=== PATIENT | female | born 1990 | race Caucasian/White ===

== ENCOUNTER 2023-12-05 11:00 | Outpatient (REF) | payer MEDICAID, SELFPAY ==
[2023-12-05 16:32] LABS: CT PCR NOT DETECTED (Not Detect.); NG PCR NOT DETECTED (Not Detect.)
[2023-12-06 08:08] LABS: Syphilis Screen Nonreactive (Nonreactive)
[2023-12-06 08:29] LABS: HBsAGNum1 0.47 S/CO (0.00-0.99); HIV AB/AG Nonreactive (Nonreactive); HIV Num 1 0.06 S/CO (0.00-0.99); Hepatitis B Surface Antigen Negative (Negative); ~HepC Num1 0.12 S/CO (0.00-0.79); ~Hepatitis C Antibody Nonreactive (Nonreactive)
[2023-12-06 11:21] LABS: BV Int Neg Control Negative (Negative); BV Int Pos Control Positive (Positive)
== END 2023-12-05 11:01 | disposition home or self-care (01) ==
LOC: HO.LAB 11:00
PROVIDERS: Visit Provider Obstetrics & Gynecology
DX: Z01.419 Encounter for gynecological examination (general) (routine) without abnormal findings (principal); Z20.2 Contact with and (suspected) exposure to infections with a predominantly sexual mode of transmission
CPT/HCPCS: 0353U; 86780; 86803; 87340; 87389; 87480; 87510; 87624; 87660; 88142; 99385

== ENCOUNTER 2023-12-05 11:00 | Outpatient (AMB) | payer MEDICAID, SELFPAY ==
--- NOTE | 2023-12-05 11:02 | A.OFFVIS_ITS ---
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 No complaints. Last Pap/HPV was many years ago [facility] Medical History Bipolar disorder Insomnia Anxiety Depression Surgical History Status post cervical polyp removal Family History Mother HTN (hypertension) Father Diabetes Maternal Grandmother Uterus cancer Maternal Aunt Uterus cancer Social History Household Members: Children Housing: House Alcohol intake: never Patient Tobacco Use Status: Never used Tobacco Current occupational status: student Sexually active: Yes Sexual orientation: Straight/Heterosexual Gender identity: Female Female Reproductive History Menstrual Age of Menarche: 10 Duration of menses: 3-5 days Date of last menstrual period: 11/10/23 control method: none Total pregnancies: 3 Full term: 2 Number of Living Children: 2 Ab spontaneous: 1 Review of Systems Const All systems reviewed & are unremarkable except as noted in HPI and below Card Reports as per HPI Resp Reports as per HPI GI Reports as per HPI and Reports no additional complaints Reports as per HPI Physical Exam Vital Signs: Last Vital Signs BP 118/72 12/05/23 11:04 BMI result Body Mass Index 30.7 Const General: cooperative, healthy appearing and comfortable Chest Chest palpation & inspection: normal inspection of the chest and normal palpation of entire chest wall Breast/axilla inspection: normal inspection of the breasts and normal inspection of the axillae Breast/axilla palpation: normal palpation of the breasts, normal palpation of the axillae and no axillary lymphadenopathy Resp Effort & Inspection: normal respiratory effort Auscultation: clear to auscultation bilaterally Percussion: percussion normal Cardio Palpation: normal PMI Rate: regular rate Rhythm: regular rhythm Heart sounds: no murmurs and no rubs Peripheral pulses: Peripheral pulses 2+ throughout GI Inspection: Yes normal to inspection Palpation (GI): Soft to palpation, nontender, no guarding, not rigid and No hepatosplenomegaly present Percussion: Yes normal to percussion Auscultation: normal bowel sounds Rectal Exam - Female: deferred General: Yes bladder normal to palpation External Female Exam: No lesion Speculum Exam - Vagina: normal appearance of the vagina, normal palpation, normal vaginal discharge and not erythematous Speculum Exam - Cervix: normal appearance of the cervix and normal palpation Bimanual exam- vagina & uterus: normal bimanual exam, normal palpation, uterine size normal, bladder normal to palpation, consistency normal and normal palpation Bimanual Exam- Adnexa, other: normal adnexae, no masses and no tenderness Assessment & Plan Assessment & Plan (1) Well woman exam: Code(s): Z01.419 - Encounter for gynecological examination (general) (routine) without abnormal findings Plan: Cotesting done. Counseled the patient about the recommended dietary allowance of 1000 mg of Calcium & 600 IU of vitamin D. The patient was instructed to perform monthly self-breast exams and to schedule an annual exam in a year; All questions answered and the patient verbalized understanding. Instructed the patient to schedule annual exam in a year Coding Level of Care Code New Pt Prev Care 18-39yr(92008 Diagnoses Well woman exam Z01.419
[2023-12-05 11:04] VITALS: BP 118/72; BMI 30.7
== END 2023-12-05 11:27 | disposition home or self-care (01) ==
LOC: HO.HWS 11:00
PROVIDERS: Visit Provider Obstetrics & Gynecology
DX: Z01.419 Encounter for gynecological examination (general) (routine) without abnormal findings (principal)
CPT/HCPCS: 99385

== ENCOUNTER 2023-12-05 12:07 | Outpatient (REF) | payer MEDICAID, SELFPAY ==
[2023-12-09 22:14] LABS: HPV mRNA E6/E7 rflx Not Detected (Not Detected)
== END 2023-12-05 12:08 | disposition home or self-care (01) ==
LOC: HO.LNP 12:07
PROVIDERS: Visit Provider Obstetrics & Gynecology
DX: Z01.419 Encounter for gynecological examination (general) (routine) without abnormal findings (principal); Z20.2 Contact with and (suspected) exposure to infections with a predominantly sexual mode of transmission
CPT/HCPCS: 87624; 88142

== ENCOUNTER 2024-01-04 10:47 | Outpatient (AMB) | payer MEDICAID, SELFPAY ==
[2024-01-04 11:15] VITALS: BMI 30.6
--- NOTE | 2024-01-04 11:15 | MHC.OFFVIS ---
Vital Signs 01/04/24 11:15 Height 5 ft 2 in Weight 167 lb 8.821 oz BMI 30.6 Intake Visit Reasons: ? BV Scale Expert Required: No Information Interpreted: non-clinical & clinical District Loss Prevention Manager: District Loss Prevention Manager Present (Giana HARDY) Accompanied by: Self / Same As Patient Allergies acetaminophen [From Tylenol] Allergy (Severe, Verified 01/04/24 11:18) Anaphylaxis Is last menstrual period known: Yes HPI Comments Details: The patient is complaining of vaginal discharge, clear to whitish, associated with burning and itching but no foul odor. It started few days ago ago. The patient has no other associated symptoms. PFS Medical History Bipolar disorder Insomnia Anxiety Depression Surgical History Status post cervical polyp removal Family History Mother HTN (hypertension) Father Diabetes Maternal Grandmother Uterus cancer Maternal Aunt Uterus cancer Social History Household Members: Children Housing: House Alcohol intake: never Patient Tobacco Use Status: Never used Tobacco Current occupational status: student Sexual orientation: Straight/Heterosexual Gender identity: Female Female Reproductive History Menstrual Age of Menarche: 10 Review of Systems Const All systems reviewed & are unremarkable except as noted in HPI and below Physical Exam Vital Signs: BMI result Body Mass Index 30.6 General: Yes no CVA tenderness External Female Exam: normal external appearance and normal appearance of the urethra Speculum Exam - Vagina: normal appearance of the vagina, normal palpation, no lesions and no masses Speculum Exam - Cervix: normal appearance of the cervix, normal palpation, no lesions, no masses and nontender Bimanual exam- vagina & uterus: normal bimanual exam, normal palpation, uterine size normal, normal palpation, uterine shape normal, No Cervical tenderness present and non-tender Bimanual Exam- Adnexa, other: normal adnexae Back/Spine/Pelvis Back: no CVA tenderness Assessment & Plan Assessment & Plan (1) Candidal vulvovaginitis: Code(s): B37.31 - Acute candidiasis of vulva and vagina Category: Medical Plan: GC/CT, Bacterial Vaginosis panel taken, Terazol 0.8% q.h.s. for 3 days with Lotrisone cream apply to the affected area b.i.d. for 5 days were sent to the patient's pharmacy. The patient was instructed to call if symptoms don't improve in 48 hours. Medications: New terconazole 0.8% 1 appful vaginal BEDTIME 3 days 20 grams 0RF clotrimazole-betamethasone 1-0.05 % 1 appl topical BID 5 days 45 grams 0RF Coding Level of Care Code Est Pt Level 3 (64980) Diagnoses Candidal vulvovaginitis B37.31
== END 2024-01-04 11:42 | disposition home or self-care (01) ==
LOC: HO.HWS 10:47
PROVIDERS: Visit Provider Obstetrics & Gynecology
DX: B37.31 Acute candidiasis of vulva and vagina (principal)
CPT/HCPCS: 99213

== ENCOUNTER 2024-01-04 10:47 | Outpatient (REF) | payer MEDICAID, SELFPAY ==
[2024-01-04 16:38] LABS: CT PCR NOT DETECTED (Not Detect.); NG PCR NOT DETECTED (Not Detect.)
[2024-01-05 13:15] LABS: BV Int Neg Control Negative (Negative); BV Int Pos Control Positive (Positive)
== END 2024-01-04 10:48 | disposition home or self-care (01) ==
LOC: HO.LNP 10:47
PROVIDERS: Visit Provider Obstetrics & Gynecology
DX: B37.31 Acute candidiasis of vulva and vagina (principal)
CPT/HCPCS: 0353U; 87480; 87510; 87660; 99212

== ENCOUNTER 2024-01-06 10:24 | Outpatient (REF) | payer MEDICAID, SELFPAY ==
[2024-01-07 03:17] LABS: Syphilis Screen Nonreactive (Nonreactive)
[2024-01-07 04:01] LABS: HBsAGNum1 0.28 S/CO (0.00-0.99); HIV AB/AG Nonreactive (Nonreactive); HIV Num 1 0.05 S/CO (0.00-0.99); Hepatitis B Surface Antigen Negative (Negative); ~HepC Num1 0.11 S/CO (0.00-0.79); ~Hepatitis C Antibody Nonreactive (Nonreactive)
== END 2024-01-06 10:25 | disposition home or self-care (01) ==
LOC: HO.LAB 10:24
PROVIDERS: Visit Provider Obstetrics & Gynecology
DX: Z20.2 Contact with and (suspected) exposure to infections with a predominantly sexual mode of transmission (principal)
CPT/HCPCS: 36415; 86780; 86803; 87340; 87389

== ENCOUNTER 2024-12-06 09:34 | Outpatient (AMB) | payer OTHER, SELFPAY ==
--- NOTE | 2024-12-06 09:36 | A.OFFPC_ITS ---
Vital Signs 12/06/24 09:37 Height 5 ft 2 in Weight 183 lb 12.8 oz BMI 33.6 BP 112/68 Blood Pressure Location Lt brachial Position Sitting Respiration 20 Pulse 99 Pulse Source Pulse Oximeter Temp 98.6 F Temp Source Oral Pulse Oximetry (%) 98 Oxygen Delivery Method Room Air Intake Visit Reasons: establish care Intake Note: Patient is a new patient here to establish care. Transferring care from [facility] in [place], [place]. Medical records have not been requested and have not been received. Pasting Inspector Required: Yes Pasting Inspector Language: Marketing Content Coordinator Name: Used tablet- Vin [id number] Patient : Yes (JOHN: 05/12/2025) Allergies acetaminophen [From Tylenol] Allergy (Severe, Verified 12/06/24 09:57) Anaphylaxis Medication List - Last Reconciled 12/06/24 by ADRIENNE Strong blood sugar diagnostic (FreeStyle Lite Strips) As directed blood-glucose meter (FreeStyle [place] Lite kit) As directed cariprazine (Vraylar) mg PO DAILY cholecalciferol (vitamin D3) 125 mcg PO DAILY lamotrigine mg PO DAILY lancets (TRUEplus Lancets) As directed PNV,calcium 40-hxeu-ouqfo acid 27 mg iron- 1 mg ( Vitamins Plus Low Iron) tabs PO DAILY promethazine mg PO BID Tobacco use date assessed: 12/06/24 Dental Screening Dental Screen Date: 12/06/24 Did you have a dental visit in the last 12 months?: No Did you have a dental problem in the last 6 months where you did not have access to dental care?: No Was dental information given to patient?: Patient has dentist HPI establish care HPI Details Previous PCP: [facility] Last visit: more than a year Last PE: same Specialist: dining room helper (diet due to gestational diabetes), OBGYN: Yes-Shayy willis-she does not know the last name Past medical history: htn in only, bipolar 2 , severe depression and anxiety, insomnia Medications: Family HX: Problem: The patient is presenting today to establish care. Reports that she has no concerns at this time She is 17 weeks in his due to give in May Patient reports that she has been under care of her OBGYN Patient reports that her OBGYN name is Ciara Lucas but she does not know the name of the facility or the last name of her OBGYN The patient reports bipolar disorder type 2, severe depression and anxiety and difficulty sleeping She reports that she is he is her therapist every 2 weeks and her psychiatrist every 3 weeks Patient denies chest pain, shortness of breath or heart palpitation [facility] Medical History Bipolar disorder Insomnia Anxiety Depression Surgical History Status post cervical polyp removal Family History Mother HTN (hypertension) Father Diabetes Maternal Grandmother Uterus cancer Maternal Aunt Uterus cancer Social History Household Members: Children Housing: House Alcohol intake: never Patient Tobacco Use Status: Never used Tobacco e-Cigarette/Vaping Use: Never Used service: No Current occupational status: student Sexual orientation: Straight/Heterosexual Gender identity: Female Cognitive needs: No Hearing needs: No Vision needs: No Female Reproductive History Menstrual Age of Menarche: 10 Number of Living Children: 2 Questionnaire PHQ-9 Over the last 2 weeks, how often have you been bothered by any of the following problems? 1. Little interest or pleasure in doing things: not at all 2. Feeling down, depressed, or hopeless: not at all 3. Trouble falling or staying asleep, or sleeping too much: not at all 4. Feeling tired or having little energy: not at all 5. Poor appetite or overeating: several days 6. Feeling bad about yourself - or that you are a failure or have let yourself or your family down: not at all 7. Trouble concentrating on things, such as reading the newspaper or watching television: not at all 8. Moving or speaking so slowly that other people could have noticed. Or the opposite - being so fidgety or restless that you have been moving around a lot more than usual: not at all 9. Thoughts that you would be better off or of hurting yourself in some way: not at all Total score: 1 Depression Screening Interpretation: Negative Depression Screening Done: Yes 57391 - PHQ-9 Billing: Yes Source: Developed by Drs. Sagar Lorenzana, Roz Phelan, Justin Loja and colleagues, with an educational willow from [employer]. Thrive Questionnaire Date Thrive assessed: 12/06/24 I am a: Patient What is your living situation today?: I have a steady place to live Within the past 12 months, did the food you bought not last and you didn't have the money to get more?: I choose not to answer this question Within the past 12 months, did you worry whether your food would run out before you got money to buy more?: I choose not to answer this question Do you have trouble paying for medicines?: No Do you have trouble getting transportation to medical appointments?: No Do you have trouble paying your heating and electricity bill?: I choose not to answer this question Do you have trouble taking care of your child, family member or friend?: No Do you have trouble with day-to-day activities such as bathing, preparing meals, shopping, managing finances, etc.?: No Are you currently unemployed and looking for a job?: I choose not to answer this question Are you interested in more education?: No Please select the resources that you would like help with: None Currently or been in a relationship where the following occur: No concerns reported THRIVE Score: 0 AUDIT C Alcohol Use Questionnaire (AUDIT-C) 1. How often do you have a drink containing alcohol?: Never 3. How often do you have six or more drinks on one occasion?: Never Total Score: 0 AKREN-7 AMB Questionnaire KAREN-7 Date KAREN - 7 assessed: 12/06/24 Feeling nervous, anxious, or on edge: 0 = Not at all Not being able to stop or control worryin = Not at all Worrying too much about different things: 1 = Several days Trouble relaxin = Several days Being so restless that it is hard to sit still: 0 = Not at all Becoming easily annoyed or irritable: 1 = Several days Feeling afraid as if something awful might happen: 0 = Not at all Total KAREN-7 score (0-4 normal; 5-9 mild; 10-14 moderate; 15-21 severe): 3 Source: Developed by Roz Gomez. Tapan, Justin Loja and colleagues, with an educational willow from [employer]. KAREN-7 Assessment Billing KAREN-7 Assessment Tool: KAREN-7 Assessment 03530 Review of Systems Const Denies headache(s) Eyes Denies loss of vision ENT Denies vertigo, Denies dizziness, Denies headache(s) and Denies sore throat Card Denies chest pain, Denies leg edema and Denies lightheadedness Resp Denies cough, Denies hemoptysis and Denies wheezing GI Denies abdominal pain, Denies melena, Denies constipation, Denies diarrhea and Denies vomiting Denies urinary frequency, Denies dysuria and Denies urinary urgency Musc Denies arthralgias, Denies joint swelling, Denies numbness and Denies tingling Neuro Denies Abnormal speech present, Denies behavioral changes, Denies vertigo, Denies dizziness, Denies headache(s), Denies loss of vision, Denies memory loss, Denies numbness and Denies tingling Psych Reports anxiety, Denies behavioral changes, Reports depression, Denies memory loss and Denies panic attacks Jacob/Lymph Denies easy bleeding and Denies easy bruising Aller/Immun Denies wheezing Physical exam (Primary Care) Vital Signs: Last Vital Signs Temp 98.6 F 12/06/24 09:37 Pulse 99 12/06/24 09:37 Resp 20 12/06/24 09:37 BP 112/68 12/06/24 09:37 Pulse Ox 98 12/06/24 09:37 Oxygen Delivery Method Room Air 12/06/24 09:37 BMI result Body Mass Index 33.6 Tobacco/Smoking Status: Tobacco use Status Tobacco use date assessed 12/06/24 12/06/24 09:56 Patient Tobacco Use Status Never used Tobacco 12/06/24 09:37 e-Cigarette/Vaping Use Never Used 12/06/24 09:56 PHQ-9: PHQ-9 Score PHQ-9: Total score 1 12/06/24 13:43 Depression Screening Interpretation: Negative Thrive Assessment: Date of Thrive Assessment Date Thrive assessed 12/06/24 12/06/24 09:56 Currently or been in a relationship where the following occur: No concerns reported Const General: healthy appearing, no acute distress, alert and awake Nutritional Appearance: well nourished Orientation/consciousness: oriented to person, oriented to place and oriented to time HENMT Ears: TM's normal bilaterally General nose exam: Normal nasal mucous membranes and turbinates present Eyes Conjunctivae: conjunctivae normal Sclerae: sclerae normal Pupils: Equal, round and reactive pupils present Neck Neck: Yes no lymphadenopathy and Yes no JVD Thyroid: Thyroid normal Carotids: no bruits Resp Effort & Inspection: normal respiratory effort and not tachypneic Auscultation: no crackles, no rales, no rhonchi and no wheezes Cardio Rate: regular rate Rhythm: regular rhythm Heart sounds: no murmurs and normal S1 and S2 GI Inspection: Yes other (large abdomen-17 weeks ) Palpation (GI): Soft to palpation and Tenderness to palpation present (GI) Auscultation: normal bowel sounds Skin General skin exam: no rashes or lesions noted and dry skin Neuro General: oriented to person, oriented to place and oriented to time Cranial nerves: Yes Equal, round and reactive pupils present Speech: No Abnormal speech present Gait exam (Neuro): Normal gait present Motor exam (neuro): no tremor noted Extrem Right upper extremity: full ROM Left upper extremity: full ROM Right lower extremity: full ROM; no edema Left lower extremity: full ROM; no edema Psych Mental Status: mental status grossly normal Speech and movement: Normal speech and movement present Affect: normal affect Attitude: cooperative Thought process: Normal thought process present Coding Level of Care Code New Pt Level 3 (54383) Diagnoses and not yet delivered in second trimester Z34.92 Additional Codes KAREN-7 Assessment Billing - KAREN-7 Assessment Tool: KAREN-7 Assessment 83709 ([id number]) PHQ-9 - 63590 - PHQ-9 Billing: Yes ([id number]) Time Spent (min) 36 Assessment & Plan Assessment & Plan (1) and not yet delivered in second trimester: Code(s): Z34.92 - Encounter for supervision of normal , unspecified, second trimester Category: Medical Plan: The patient presented to establish care. She is 17 weeks and has being managed by her obgyn at this time. The patient reports that she does have gestational diabetes. She is also being seen by psychiatrist who is managing her medications. She currently has no concerns and is just establishing care for the future. Plan The patient is due to give in May. She is scheduled to return in 7 months unless she needs to be seen sooner. [facility] is managing her care at this time.
[2024-12-06 09:37] VITALS: BP 112/68; PULSE 99; RESP 20; TEMP 37; O2SAT 98; BMI 33.6
--- OUTSIDE RECORDS SUMMARY | 2024-12-06 10:02 | XMS_ITS | Encounter Summary ---
Author Organization [facility] Address [address] [place] [address] Care Team Providers Care Tie Knitter Helper Name Role Phone Sophia Simpson Primary Care Provider [phone] Reason for Visit * Reason Onset Date Comments GDM 12/03/2024 Encounter Details Date Type Department Care Team ([facility] st Contact Info) Description 12/03/2024 Telephone Obstetrics and [facility]necology - [address] [place] [id number] Naye Carrizales, RN GDM Social History Tobacco Use Types Packs/Day Years Used Date Smoking Tobacco: Never Smokeless Tobacco: Never Alcohol Use Standard Drinks/Week Comments Not Currently 0 (1 standard drink = 0.6 oz pur e alcohol) Housing Instability Answer Date Recorde d Are you worried that in the next 2 months you may not have stable housing? No 10/16/2024 Food Access & Nutrition Answer Date Rec orded Do you have access to a vari ety of food including fruits and vegetables? Yes 10/16/2024 Health Literacy Answer Date Recorded How often do you need to hav e someone help you when you read instructions, pamphlets, or other written material from your doctor or pharmacy? Unable to respond 10/16/2024 Caregiver: How often do you need to have someone help you when you read instructions, pamphlets, or other written material from your doctor or pharmacy? Not on file 025 Financial Risk Answer Date Recorded How hard is it for you to pa y for the very basics like food, housing, medical care, and air conditioning / heating? Unable to respond 10/16/2024 Transportation Answer Date Recorded Has the lack of transportati on kept you from meetings, work, or from getting things needed for daily living? Not asked 2024 Has the lack of transportati on kept you from medical appointments or from getting medications? Not asked 10/16/2024 Social Isolation Answer Date Recorded How often do you feel lonely or isolated from those around you? Not asked 10/16/2024 Food Risk Answer Date Recorded Within the past 12 months we worried whether our food would run out before we got money to buy more. Not asked 10/16/2024 Within the past 12 months th e food we bought just didn't last and we didn't have money to get more. Not asked 10/16/2024 Dependent Care Answer Date Recorded Do you need help finding or paying for care for your loved ones. For example, residential child care counselor or elderly care for an older adult? Unable to respond 10/16/2024 Education Answer Date Recorded Do you think completing more education or training, like finishing a GED, going to college, or learning a trade, would be helpful for you? Unable to respond 10/16/2024 Employment and Income Answer Date Recor ded During the last four weeks, have you been actively looking for work? Unable to respond 10/16/2024 Living Situation Answer Date Recorded What is your living situation? 0 10/16/2024 Estimated Date of Delivery Comme nts Yes 05/12/2025 Based on Ultraso und Sex and Gender Information Value Date Recorded Sex Assigned at Not on file Legal Sex Female 5:45 AM EST Gender Identity Not on file Sexual Orientation Not on file documented as of this encounter Progress Notes * Naye Carrizales RN - 12/04/2024 11:23 AM EDT Images from the original note were not included. MD Naye Steinberg RN Looks ok. Lets just see what happens with her fasting. Maybe ask her to get a little walk in the evening to help. Pt notified of provider recommendations. [employer] Glucose Monitoring Flowsheet Before Breakfast Glucose After Breakfast Glucose 11/26/2024 103 mg/dL (MO) 103 mg/dL (MO) 12/03/2024 97 mg/dL (MO) 101 mg/dL (MO) After Lunch Glucose After Dinner Glucose 11/26/2024 111 mg/dL (MO) 12/03/2024 119 mg/dL (MO) 120 mg/dL (MO) Legend: (MO) Patient-reported * Naye Carrizales RN - 12/03/2024 3:27 PM EDT MyChart reminder sent to send in past week's blood sugars. OB 12/12 US 12/31 documented in this encounter Plan of Treatment Upcoming Encounters Date Type Department Care Team (Late st Contact Info) Description 12/12/2024 3:00 PM EDT Routine Obstetrics and Gynecology - [address] [phone] Rolly Levy [facility] [address] [place] [address] 12/31/2024 10:00 AM EDT Ancillary Procedure Maternal Medicine - [address] [phone] 01/09/2025 11:15 AM EDT Routine Obstetrics and Gynecology - [address] [phone] Rekha Plummer MD [address] [place] [phone] documented as of this encounter Visit Diagnoses Not on filedocumented in this encounter Additional Health Concerns Assessment Noted Time PHQ-9 Depression Total Score: 0 11/23/19 10:56 AM EDT documented as of this encounter Care Teams Tie Knitter Helper Relationship Specialty Start Date End Date Sophia Simpson [address] [place] [id number] PCP - General 09/24/24 documented as of this encounter
--- OUTSIDE RECORDS SUMMARY | 2024-12-06 10:02 | XMS_ITS | Clinical Summary ---
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 Active Active Problems Problem Noted Date Diagnosed Date Gingivitis 11/02/2024 Encounters Date Type Department Care Team Description 11/02/2024 2:30 PM EST Office Visit [facility] [address] [place] [address] Demian Ferreira DDS Gingivitis (Primary Dx) from Last 3 Months Social History Tobacco Use Types Packs/Day Years Used Date Smoking Tobacco: Never Passive Smoke Exposure: Never Smokeless Tobacco: Never Tobacco Cessation:Counseling Given: No Alcohol Use Standard Drinks/Week Comments Never 0 (1 standard drink = 0.6 oz pur e alcohol) Comments Unknown Sex and Gender Information Value Date Recorded Sex Assigned at Female 10/26/2024 4:00 PM EST Legal Sex Female 6:23 PM EDT Gender Identity Female 10/26/2024 4:00 PM EST Sexual Orientation Straight 10/26/2024 4: 00 PM EST Last Filed Vital Signs Vital Sign Reading Time Taken Comments Blood Pressure 116/68 11/02/2024 2:40 PM EST Pulse 81 06/04/2022 10:21 AM EDT Temperature - - Respiratory Rate - - Oxygen Saturation 99% 06/04/2022 10:21 AM EDT Inhaled Oxygen Concentration - - Weight 73 kg (161 lb) 06/04/2022 10:21 AM EDT Height - - Body Mass Index - - Plan of Treatment Health Maintenance Due Date Last Done Comments Dental Oral Exam 1991 Dental Prophylaxis 1991 Dental X-Ray: Bitewings 1991 Dental X-Ray: Full Mouth 1991 Depression Screening 1991 Lipid Panel 1991 SDOH Screening 1991 Alcohol/Substance Use Screening 2003 Family Planning (PISQ) 2006 Hepatitis C Screening 2009 Hepatitis B Vaccines (1 of 3 - 19+ 3-dose series) 2010 Pap Smear 2012 Cervical Cancer Screening 2021 HPV/Cotest 2021 COVID-19 Vaccine (1 - 2023-2 5 season) 2024 Influenza Vaccine (#1) 2024 Tobacco Screening 11/02/2025 11/02/2024 DTaP/Tdap/Td Vaccines (2 - T d or Tdap) 02/20/2028 02/19/2018 Zoster Vaccines (1 of 2) 2041 RSV Patients and Pa tients Aged 60 years or older (1 - 1-dose 75+ series) 2066 HIV Screening Completed 09/10/2022 HIB Vaccines Aged Out No longer eligi ble based on patient's age to complete this topic HPV Vaccines Aged Out No longer eligi ble based on patient's age to complete this topic Hepatitis A Vaccines Aged Out No long er eligible based on patient's age to complete this topic IPV Vaccines Aged Out No longer eligi ble based on patient's age to complete this topic Meningococcal Vaccine Aged Out No melisa josefina eligible based on patient's age to complete this topic Pneumococcal Vaccine: Pediat rics (0 to 5 Years) and At-Risk Patients (6 to 49) Years) Aged Out No longer elig ible based on patient's age to complete this topic RSV under 20 months Aged Out No longe r eligible based on patient's age to complete this topic Rotavirus Vaccines Aged Out No longer eligible based on patient's age to complete this topic Procedures Procedure Name Priority Date/Time Associated Diagnosis Comments CASE PRESENTATION, DETAILED AND EXTENSIVE TREATMENT PLANNING Routine 11/02/2024 2:30 PM EST LIMITED ORAL EVALUATION - PROBLEM FOCUSED Routine 11/02/2024 2:30 PM EST HIV AB-AG W/RFLX TO HIV QNT Routine 09/10/2022 8:57 AM EST from Last 3 Months or Most Recently Relevant to Health Maintenance Results * HIV Antibody-Antigen w/Reflex to HIV Quant (09/10/2022 8:57 AM EST) Result 4th Gen HIV Antibody Antigen NEGATIVE (NEG) [facility] Comment: Negative for antibodies to HIV 1 and HIV 2 and P24 antigen. Reference range: Negative Additional note: Written patient authorization is required for each separate release of this test result. This test was performed on the [employer] immunoassay system. Testing performed or reported by [facility], a Service of [facility], [facility] Tawana [place] [address] Russell Cummings MD, [employer] [facility]# [id number] 09/10/2022 8:57 AM EST 09/10/2022 9:00 AM EST Risa Yoder [facility] BLOOD ORDERABLES Final Res ult [facility] [address] [place] [address] from Last 3 Months or Most Recently Relevant to Health Maintenance Insurance [facility] MEDICAID STAND ADULT * Guarantor: Alissa Nichols Account Type Relation to Patient Date of Phone Billing Address Dental Self Care Teams Hand Stapler Relationship Specialty Start Date End Date Provider, Not In System PCP - General Family Medicine 11/03/23 Presley Rodriguez PA [address] [place] [id number] Family Medicine 07/02/22
--- OUTSIDE RECORDS SUMMARY | 2024-12-06 10:02 | XMS_ITS | Clinical Summary ---
Author Organization [facility] [address] [facility] [address] Address [address] [place] [address] Phone Care Team Providers Care Manager Internet Name Role Phone Sophia Simpson Primary Care Provider [phone] Allergies Active Allergy Reactions Criticality Noted Date Comments Acetaminophen Anaphylaxis,Hives High 10/12/2016 Medications vit,la [id number] 27 mg iron- 1 mg tabletIndication s: examination or test, positive result,Early stage of Take 1 tablet by mouth 1 (one) time each day. 30 each 09/25/2024 09/25/19 26 Active lamoTRIgine (LaMICtal) 25 mg tablet Take 1 tablet (25 mg total) by mouth 1 (one) time each day. Active blood-glucose meter kitIndications:g estational diabetes mellitus To test blood sugar four times a day (fasting, 2 hours after breakfast, 2 hours after lunch, and 2 hours after dinner) 1 kit 11/12/2024 Active blood sugar diagnostic (FreeStyle Lite Strips) test stripIndications :gestational diabetes mellitus To test blood sugar four times a day (fasting, 2 hours after breakfast, 2 hours after lunch, and 2 hours after dinner) 150 each 11/12/2024 Active freestyle 28 gauge lancetsIndicatio ns:gestational diabetes mellitus To test blood sugar four times a day (fasting, 2 hours after breakfast, 2 hours after lunch, and 2 hours after dinner) 150 each 5 11/12/2024 Active promethazine (PHENERGAN) 25 mg tablet Take 1 tablet (25 mg total) by mouth at bedtime as needed for nausea or vomiting. 30 tablet 2 11/13/2024 Active aspirin 81 mg EC tablet Take 2 tablets (162 mg total) by mouth 1 (one) time each day. 180 tablet 1 11/13/2024 11/14/19 26 Active Active Problems Problem Noted Date Diagnosed Date History of gestational diabetes 11/13/2024 History of gestational hypertension 11/13/2024 Overview (11/13/2024): CBC, AST, ALT, creatinine and P/C ratio baseline ASA 162 mg daily starting at 12 weeks Assessment & Plan (11/13/2024 4:42 PM EDT): Baseline pre-E labs today Migraine with aura and witho ut status migrainosus, not intractable 11/13/2024 Assessment & Plan (11/13/2024 4:43 PM EDT): Will treat with phenergan. Diet controlled gestational diabetes mellitus (GDM) in second trimester 10/29/2024 Overview (11/29/2024): 10/22/24 Early 1hr 175 and HgbA1c 5.4 11/09/24 3hr GTT: 104/203/199/138 1 hour test at 24-28 wks: >140 Perform 3 hour- if 1 hr >200, patient is diagnosed with GDM and does not need 3- hr GTT Forward chart to P [id number] ([facility]) Nutrition teaching: scheduled Diabetic teaching and visit with diabetic provider (Rolly or Letty): Rolly 11/29/2024 4 times per day testing (fasting and 2 hour postprandial) to be reviewed weekly Goals: fasting <95, 2 hr PP <120 If > or = 1/3 elevated, send to diabetic provider for insulin therapy IF DIAGNOSED ON EARLY SCREENING: order a echocardiogram between 22-24 weeks (due between 01/06-01/20) Serial growth ultrasounds after diagnosis 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 history of? and add to overview Recommendation for Q 1-3 year GTT with PCP Assessment & Plan (11/13/2024 4:41 PM EDT): Has dietary appt tomorrow and upcoming teaching appt. She will bring meter to both appts. Rubella non-immune status, antepartum 10/29/2024 Overview (10/29/2024): Vaccinate PP Assessment & Plan (11/13/2024 4:42 PM EDT): Vaccinate PP care, subsequent in first tri [facility] 10/22/2024 Overview (11/12/2024): 1. [facility] site: [facility]: [address] [place] [phone] ([phone]) 2. Delivery site: [facility] 3. Mobile Mommas: 4. Dating criteria: LMP 5. Blood type: O-Positive 6. Genetic screening: Date: Result: Panorama: Low Risk, XY Horizon: Negative x 14 Nuchal: NT normal Survey: MSAFP: 6. GBS: Date: 7. FOB name: Griffin Johnson 8. Plans A. Epidural or other pain management - B. Labor support identified - C. Tdap - Date: Flu - Date: D. Breast or Bottle feed: Both Breast and Bottle feeding E. Baby's name - F. Circumcision - 9. Hospital Course: Anxiety and depression 09/25/2024 Overview (11/13/2024): Continued on meds and therapy Assessment & Plan (11/13/2024 4:41 PM EDT): Well controlled. Continue with therapy and meds. Bipolar 1 disorder 09/25/2024 Overview (09/25/2024): Stopped all meds with pos test History of delivery, currently 09/25/2024 Overview (09/25/2024): x2, low transverse Assessment & Plan (11/13/2024 4:41 PM EDT): Plan repeat at 39 weeks. Consider TL Obesity in 09/25/2024 Overview (11/12/2024): BMI- 31.64 HgbA1C and 1 hour GTT at initial labs: 10/22/24 Early 1hr 175 and HgbA1c 5.4 11/09/24 3hr GTT: 104/203/199/138 ASA 162mg at 12 weeks until delivery Detailed anatomy ultrasound Repeat GTT 24-28 weeks if early is normal BMI of 50 by 28wks transfer to [facility] DVT prophylaxis- Lovenox if CS and BMI >35 Assessment & Plan (11/13/2024 4:40 PM EDT): Start ASA PCOS (polycystic ovarian syndrome) 01/28/2017 Estimated Date of Delivery Comme nts Yes 05/12/2025 Based on Ultraso und Resolved Problems Problem Noted Date Diagnosed Date Resolved Date Gingivitis 11/02/2024 11/13/2024 Encounters Date Type Department Care Team Description 12/03/2024 [facility] [address] [place] [address] Naye Carrizales, RN GDM 11/29/2024 3:00 PM EDT Routine Obstetrics and Gynecology - [address] [phone] Rolly Levy CNM Diet controlled gestational diabetes mellitus (GDM) in second trimester (Primary Dx); 16 weeks gestation of 11/26/2024 [facility] [address] [place] [address] [phone] Naye Carrizales, RN GDM 11/19/2024 Telephone [facility]s [facility] - [facility] [address] [place], [place] [address], [place] [phone] Naye Carrizales, RN GDM 11/14/2024 10:30 AM EDT Nutrition Internal Medicine - [place] [address] [place] [address] Diet controlled gestational diabetes mellitus (GDM) in second trimester (Primary Dx) 11/13/2024 1:35 PM EDT Lab Draw Station - [address] Obesity in ; History of gestational hypertension 11/13/2024 1:15 PM EDT Initial Obstetrics and Gynecology - [address] [phone] Rekha Plummer MD GA: 14w2d 11/12/2024 Telephone Obstetrics and Gynecology - [address] [phone] Naye Carrizales RN new diagnosis gestational diabetes 11/09/2024 Telephone Obstetrics and Gynecology - [address] [phone] Shayy Bach CNM Letter for School/Work; Forms/questionnaire s 11/06/2024 10:00 AM EST Ancillary Procedure Maternal Medicine - [address] [phone] Encounter for (NT) nuchal translucency scan 10/22/2024 1:00 PM EST Ancillary Procedure Maternal Medicine - [address] [phone] care, subsequent in first trimester 10/22/2024 11:00 AM EST Clinical Support Obstetrics and Gynecology - [address] [phone] care, subsequent in first trimester (Primary Dx); Obesity in ; PCOS (polycystic ovarian syndrome); History of 2 sections; Anxiety and depression; Bipolar 1 disorder (CMS/HCC) 09/25/2024 10:30 AM EST Office Visit Obstetrics and Gynecology - [address] [phone] Shayy Bach CNM Early stage of (Primary Dx); examination or test, positive result; Anxiety and depression; Bipolar 1 disorder (CMS/HCC); History of delivery, currently ; Obesity in from Last 3 Months Surgical History Surgery Date Site/Laterality Comments SECTION, LOW TRANSVERSE x2 APPENDECTOMY POLYPECTOMY 09/05/2023 - 09/04/2024 Medical History Medical History Date Comments Depression Anxiety Bipolar 1 disorder (CMS/HCC) Polycystic ovary syndrome Gingivitis 11/02/2024 Family History Medical History Relation Name Comments No Known Problems Brother 1 Liver cancer Brother 2 Uterine cancer Maternal Grandmother Hypertension Mother Thyroid disease Mother Ulcers Mother Uterine cancer Other Maternal Aunt Hypothyroidism Sister No Known Problems Son 1 No Known Problems Son 2 Breast cancer Neg Hx Ovarian cancer Neg Hx Relation Name Status Comments Brother 1 Brother 2 Alive Father Maternal Grandfather Maternal Grandmother Mother Alive Other Maternal Aunt Alive Paternal Grandfather Paternal Grandmother Sister Son 1 Son 2 Alive Social History Tobacco Use Types Packs/Day Years Used Date Smoking Tobacco: Never Smokeless Tobacco: Never Tobacco Cessation:Counseling Given: Not Answered Alcohol Use Standard Drinks/Week Comments Not Currently [...] care for your loved ones. For example, early childhood director or elderly care for an older adult? [...] on file Sexual Orientation Not on file Obstetrics History Para Term AB IAB SAB Ectopic Multiple Livin g Live Births 4 2 2 0 1 0 0 0 0 2 2 Date Outcome GA Total Labor Labor/2nd/3rd Weight Sex Type Anes PTL Diana A1 A5 Name Clin AB 011 Term M CS-LT ranv Livin g Min jaquez Complications:Gestational di abetes 015 Term M CS-LT ranv Livin g Sherie corley Current Summary Episode Dates Number of Fetuses Estimated Date of Delivery 10/22/2024 - Present (12/06/2024) 1 05/12/2025 (set by Catherine pool RN on 10/23/2024 based on Ultrasound on 10/22/2024) Dating Summary Based On JOHN [place] Diff Last Menstrual Period on 07/20/2024 (Approximate ) 04/26/2025 +2w2d Ultrasound on 10/22/2024 05/12/2025 Working GA:11w1d Overview and Plan :Grande Delivery Plans Post-Delivery Plans Planned delivery method: Feedin g intentions:Breast and Formula Feeding Planned delivery location:[facility] Circumcis ion requested:Provider Performed Acceptable blood products:All Vitals Pregravid Weight Height TWG (As of 12/06/2024) Pregrav id BMI 78.5 kg (173 lb) 1.549 m (61 ) 9.526 kg (21 lb) 32.70 Notes Progress Notes - Routine Pre power - 11/29/2024 - GA:16w4d 11/29/2024 - 16w4d - Rolly Levy CNM Subjective interpreter for the deaf Mone # [id number] used for today's encounter Debbi Nichols is a 34 y.o. at 16w5d with a working estimated date of delivery of 05/12/2025, by Ultrasound who presents for an initial visit for her gestational diabetes which is currently diet controlled. This is planned. [facility] Glucose Monitoring Flowsheet Before Breakfast Glucose After Breakfast Glucose 11/20/2024 92 mg/dL (WV) 110 mg/dL (WV) 11/21/2024 92 mg/dL (WV) 98 mg/dL (WV) 11/22/2024 92 mg/dL (WV) 101 mg/dL (WV) 11/23/2024 90 mg/dL (WV) 76 mg/dL (WV) 11/24/2024 90 mg/dL (WV) 95 mg/dL (WV) 11/25/2024 92 mg/dL (WV) 116 mg/dL (WV) 11/26/2024 103 mg/dL (WV) 103 mg/dL (WV) After Lunch Glucose After Dinner Glucose 11/20/2024 131 mg/dL (WV) 101 mg/dL (WV) 11/21/2024 108 mg/dL (WV) 120 mg/dL (WV) 11/22/2024 120 mg/dL (WV) 120 mg/dL (WV) 11/23/2024 104 mg/dL (WV) 110 mg/dL (WV) 11/24/2024 130 mg/dL (WV) 120 mg/dL (WV) 11/25/2024 116 mg/dL (WV) 117 mg/dL (WV) 11/26/2024 Her is complicated by: Obesity has already gained about 20 lbs, history of GDMA in first , CS x2 (both babies about 8 lbs per patient ) and history of gestational hypertension OB History Para Term AB Living 4 2 2 0 1 2 SAB IAB Ectopic Multiple Live Births 0 0 0 0 2 # Outcome Date GA Lbr Raffy/2nd Weight Sex Type Anes PTL Lv 4 Current 3 Term 10/19/14 M CS-LTranv DIANA 2 Term 08/12/11 M CS-LTranv DIANA Complications: Gestational diabetes 1 AB Gynecology History Past Medical History: Diagnosis Date Anxiety Bipolar 1 disorder (CMS/HCC) Depression Gingivitis 11/02/2024 Polycystic ovary syndrome Past Surgical History: Procedure Laterality Date APPENDECTOMY SECTION, LOW TRANSVERSE x2 POLYPECTOMY 2023 Family History Problem Relation Name Age of Onset Thyroid disease Mother Hypertension Mother Ulcers Mother Hypothyroidism Sister No Known Problems Brother Liver cancer Brother No Known Problems Son No Known Problems Son Uterine cancer Maternal Grandmother Uterine cancer Other Maternal Aunt 40 Breast cancer Neg Hx Ovarian cancer Neg Hx Social History Socioeconomic History Marital status: Single Spouse name: Not on file Number of children: Not on file Years of education: Not on file Highest education level: Not on file Occupational History Not on file Tobacco Use Smoking status: Never Smokeless tobacco: Never Substance and Sexual Activity Alcohol use: Not Currently Drug use: Never Sexual activity: Yes Partners: Male control/protection: None Comment: together 7 years Other Topics Concern Not on file Social History Narrative Not on file Current Outpatient Medications Medication Sig Dispense Refill aspirin 81 mg EC tablet Take 2 tablets (162 mg total) by mouth 1 (one) time each day. 180 tablet 1 blood sugar diagnostic (FreeStyle Lite Strips) test strip To test blood sugar four times a day (fasting, 2 hours after breakfast, 2 hours after lunch, and 2 hours after dinner) 150 each 5 blood-glucose meter kit To test blood sugar four times a day (fasting, 2 hours after breakfast, 2 hours after lunch, and 2 hours after dinner) 1 kit 0 freestyle 28 gauge lancets To test blood sugar four times a day (fasting, 2 hours after breakfast, 2 hours after lunch, and 2 hours after dinner) 150 each 5 lamoTRIgine (LaMICtal) 25 mg tablet Take 1 tablet (25 mg total) by mouth 1 (one) time each day. vit,la [id number] 27 mg iron- 1 mg tablet Take 1 tablet by mouth 1 (one) time each day. 30 each 11 promethazine (PHENERGAN) 25 mg tablet Take 1 tablet (25 mg total) by mouth at bedtime as needed for nausea or vomiting. 30 tablet 2 No current facility-administered medications for this visit. Allergies Allergen Reactions Acetaminophen Anaphylaxis and Hives The following portions of the patient's chart were reviewed in this encounter and updated as appropriate: Allergies Meds Problems Review of Systems Review of Systems Constitutional: Negative. Respiratory: Negative. Cardiovascular: Negative. Gastrointestinal: Negative. Genitourinary: Negative. Musculoskeletal: Negative. Skin: Negative. Neurological: Negative. Psychiatric/Behavioral: Negative. Objective Physical Exam Weight: 88 kg (194 lb) Expected Total Weight Gain: 5 kg (11 lb)-9 kg (19 lb) Pregravid BMI: 32.70 BP: 124/70 Labs A1C 5.4 One hour GTT EARLY 175 3 Hour GTT Fastin 1 Hour : 203 2 Hour : 199 3 Hour: 138 Assessment/Plan Diet controlled gestational diabetes mellitus (GDM) in second trimester (Primary) - echo complete/initial; Future 16 weeks gestation of This was our initial encounter following diagnosis of GDMA today we reviewed: -BS checks 4 times a day; fasting and postprandial; reviewed target readings including fasting <95 and PP <120 -Reviewed meals plans, appropriate food choices, reading nutrition labels, carbohydrate counting and portion sizes -Encouraged to keep food log for the next few weeks with her blood sugar readings especially on readings that are elevated after meals to narrow down which foods may be causing this. Reviewed importance of a carb, protein and healthy fats with eat meal as well as a snack at bedtime -Plan for serial growth scans starting at 32 weeks or PRN -We discussed that due to diabetes in she has an increased risk of having a shoulder dystocia with this delivery. We reviewed that a shoulder dystocia involves the shoulders not delivering with gentle traction after the of the baby's head and that we are trained in maneuvers to attempt to relieve the dystocia. While she has the risk factor listed, shoulder dystocia is extremely difficult to predict and 50% of shoulder dystocias occur in moms with no risk factors. If a shoulder dystocia does occur, there are risks to the baby such as clavicle fracture (1.7-9.5%), humerus fracture (0.1-4.2%), temporary (3 -16.8%) or permanent (0.5-1.6%) nerve injury, need for resuscitation, and in very rare instances hypoxic brain injury (0.3%) or of the baby (0-0.35%). -We reviewed what GDMA means and risks associated with diagnosis in as well as risks for baby if blood sugars do not have good glycemic control Gestational Diabetes nutrition planning Plan for 3 meals a day. These should be every 4-5 hours. Snacks: 2-3 times a day between meals as well as a bedtime snack. The bedtime snack is recommended to decrease the fasting time overnight (should not go more Than 10-12 hours max between bedtime snack and breakfast). You should have 1-2 servings of Carbohydrates with each snack. Below or suggested guidelines. (this will be adjusted by the sloop captain specifically for your specific needs) Carbohydrate minimums: 175 grams/day You want approximately 11 carbohydrate servings a day. 1 serving = 15 grams carbs This should be about 2-3 servings (or 30-45gm) of carbohydrates at each meal. Example: 1 slice of bread is approximately 15 grams of carbohydrates. Protein Minimum: 71 grams/day This is about 10 ounces/day. Example: 4oz chicken breast is approximately 28 grams Carbohydrates peak 1-2 hours after eating (90-100% of carbs turn into glucose) Protein peaks 2-4 hours after eating (50% of protein turns into glucose) Fats peak 8-10 hours after eating (10% of fat turns into glucose) Fiber minimum: 28gm/day Example: ?? cup of raspberries is equal to approx. 4gm fiber Follow up for routine OB appointments and continue monitoring blood sugars with diet changes Total time of today's encounter was 30 minutes in preparing to see the patient, performing a medical appropriate exam, counseling the patient and documenting in the EMR. We discussed the fact that optimal management of maternal glucose during decreases all of the following: the risk of macrosomia, shoulder dystocia and brachial plexus injuries, the chance for a delivery, the risk of superimposed preeclampsia, and other obstetric morbidities. In addition, there is benefit to controlling maternal glucose to minimize the risk of metabolic derangements, such as hypoglycemia and hyperbilirubinemia. Pharmacologic therapy may be required to assure she reaches her glycemic goals during this . Insulin and oral agents were reviewed. We also reviewed the need for an additional glucose tolerance test at 6 weeks and the need for twice weekly monitoring starting at 32 weeks gestation to monitor wellbeing. Diet and Exercise -referral to cosmetology educator and to sloop captain placed Glucose Monitoring -glucometer and testing strips ordered for patient -log book given -daily home glucose monitoring with the following targets: Targets Fasting <95 1 hr PP <130-140 2 hr PP <120 -symptoms of hypoglycemia and hyperglycemia reviewed -call parameters discussed Wellbeing - echocardiogram at 20-22 weeks- pending -anatomy ultrasound at 20 weeks-pending -baseline growth at 24 weeks -track growth with ultrasound every 4 weeks in the third trimester -start twice weekly monitoring (NST and KELLY) at 32 weeks gestation if on insulin Routine OB Care -repeat glucose tolerance test at 6 weeks Return for routine OB appointments Rolly Levy CNM Progress Notes - Initial Pre power - 11/13/2024 - GA:14w2d 11/13/2024 - 14w2d - Rekha Ball MD OB 12 week appt IP: S: Debbi is a 34 y.o. year old here for IP. Her is unplanned. She and the father of the baby are happy. GUTIÉRREZ for the past few days. She is allergic to Tylenol. Gets throat closure. She has migraines outside of . Usually takes ibuprofen. Soda crackers stay down. She notes her mood has been ok. She does have a history of bipolar. Taking Lamictal and feels very stable. She is seeing a therapist every 2 weeks. Patient's last menstrual period was 07/20/2024 (approximate). She is certain of her LMP with irregular cycles. is currently dated by 1st trimester ultrasound only. She complains of nausea and vomiting. She denies vaginal bleeding or cramping. O: Blood pressure 134/80, pulse (!) 111, height 1.549 m (61 ), weight 81.3 kg (179 lb 3.2 oz), last menstrual period 07/20/2024. See OB physical and labs. Vitals BP: 134/80 Weight: 81.3 kg (179 lb 3.2 oz) No results found for: ABORH Lab Results Component Value Date RH Positive 10/22/2024 A: at 14w2d weeks gestation. 1. care, subsequent in first trimester 2. Rubella non-immune status, antepartum 3. Diet controlled gestational diabetes mellitus (GDM) in second trimester 4. Obesity in 5. History of delivery, currently 6. Anxiety and depression 7. Screening for cervical cancer 8. History of gestational diabetes 9. History of gestational hypertension 10. Screen for STD (sexually transmitted disease) 11. Migraine with aura and without status migrainosus, not intractable P: Pap obtained today. Genprobe obtained today. Oriented to THoNE MG and anticipated course. Discussed collaborative practice and [facility] delivery. Reviewed healthy eating and normal weight gain in . Encouraged patient to push PO fluids. Counseled about warning signs of the first trimester and how to contact interventional neuroradiologist provider. Discussed the benefits of breast feeding and strongly encouraged to consider this. Counseled regarding the diagnosis of anomalies. She was offered a referral to maternal medicine for nuchal lucency/[place] testing. She already accepted the referral. RTO 4 weeks. The patient does not require anesthesia consult. This patient's VTE risk status is low. [place] Depression Scale: In the Past 7 Days I have been able to laugh and see the funny side of things.: As much as I always could I have looked forward with enjoyment to things.: As much as I ever did I have blamed myself unnecessarily when things went wrong.: Not very often I have been anxious or worried for no good reason.: No, not at all I have felt scared or panicky for no good reason.: No, not at all Things have been getting on top of me.: No, most of the time I have coped quite well I have been so unhappy that I have had difficulty sleeping.: Not at all I have felt sad or miserable.: No, not at all I have been so unhappy that I have been crying.: Only occasionally The thought of harming myself has occurred to me.: Never [place] Depression Scale Total: 3 [place] SCREENING CHARGE (Clinic Only): 32678 Obesity in Start ASA Diet controlled gestational diabetes mellitus (GDM) in second trimester Has dietary appt tomorrow and upcoming teaching appt. She will bring meter to both appts. Anxiety and depression Well controlled. Continue with therapy and meds. History of delivery, currently Plan repeat at 39 weeks. Consider TL History of gestational hypertension Baseline pre-E labs today Rubella non-immune status, antepartum Vaccinate PP Migraine with aura and without status migrainosus, not intractable Will treat with phenergan. Rekha Plummer MD on 11/13/2024 at 4:43 PM EDT Progress Notes - Clinical Simon pport - 10/22/2024 - GA:11w1d 10/22/2024 - 11w1d - Catherine Hodges RN Debbi Nichols is a 34 y.o. old female at 13w3d. This is [place]. The patient feels happy about the . The FOB is supportive. Patient's last menstrual period was Patient's last menstrual period was 07/20/2024 (approximate). (exact date)., which would make her currently 13w3d with an Estimated Date of Delivery: 04/26/25. She is certain of her date. An ultrasound has not been ordered to confirm dating Patient has significant history of: Gestational Diabetes , anx, dep, bipolar, 2 prev c-sections, PCOS OB Past Medical History: Have you had or do you currently have: Diabetes? Yes-gest dm-with 1st Hypertension? No Heart disease, Mitral valve Prolapse, or Rheumatic fever? No An Autoimmune disease such as Lupus or Rheumatoid Arthritis? No Epilepsy, Seizures, or Spells? No Migraine Headaches? No Stroke or loss of function or sensation? No Additional Questions: Have you ever been treated for anxiety and/or depression? Yes-sees psychiatrist-prescribed lamitrgne-25mg daily Are you having problems with crying spells or loss of self-esteem? No Have you ever required psychiatric care? Yes Have you ever had hepatitis, liver disease or jaundice? No Have you ever been treated for blood clots in your veins, deep venous thrombosis, inflammation in the veins, thrombosis, phlebitis, pulmonary embolism or varicosities? No Have you had excessive bleeding after surgery or dental work? No Do you bleed more than other women after a cut or scratch? No Do you have a history of anemia? No Have you ever had Thyroid problems or taken Thyroid medications? NO Do you have any other Endocrine Problems (ie. PCOS)? Yes Have you ever been in a major accident or suffered serious trauma? No Within the last year, has anyone hit, slapped, kicked or otherwise hurt you? No In the last year, has anyone forced you to have sex when you didn't want to? No Do you feel safe at home? Yes Have you ever received a blood transfusion? No Would you refuse a blood transfusion if a doctor judged to be medically necessary? No Would you rather than receive a blood transfusion? No If you answered yes to the above questions, is this for oriental orthodox reasons? No Do you know what your blood type is or if you are Rh Negative? No Have you ever had abnormal antibodies in your blood? No Have you ever had asthma? No Have you every had Tuberculosis? No Have you ever had any breast problems? Yes Have you ever breast fed? Yes-youngest for 1 week Have you ever had any gynecological surgical procedures such as cervical conization, LEEP procedure, Laser treatment, cryosurgery of the cervix or dilation and curettage, etc? Yes-polypectomy in 2023- [place] Have you had any other surgical procedures? Yes-2 c sectionsm and appendectomy Have you ever been hospitalized overnight for a non-surgical reason excluding normal delivery? No Have you ever had anesthesia complications? No Have you ever had an abnormal pap smear? No Do you have a history of abnormalties of the uterus? No Did your mother take ANDREW or any other hormones when she was with you? No Did it take more than one year to become ? No Have you ever been evaluated or treated for infertility? No Is there a history of medical problems in your family which you feel might adversely affect your health or ? No Do you have any other problems we have not asked you about which you feel may be important for us to know for this ? No Do you currently have any of the following symptoms since your last menstrual period: Abdominal pain, blood in the stool or urine, chest pain, shortness of breath, coughing or vomiting up blood, your heart racing or skipping beats, nausea and/or vomiting, pain on urination, or vaginal discharge or vaginal bleeding? No OB Infection History: Do you object to being tested for Hepatitis B? No Do you object to being tested for HIV? No Do you feel that you are at high risk for coming contact with the AIDS virus? No Have you ever been treated for tuberculosis? No Have you ever received the BCG vaccine? No Have you ever had a positive skin test for Tuberculosis? No Do you live with someone who has Tuberculosis? No Have you ever been exposed to Tuberculosis? No Do you have Genital Herpes? No Does your partner have Genital Herpes? No Have you had a rash or viral illness since your last period? No Have you ever had Gonorrhea, Chlamydia, Syphilis, Venereal Warts, Trichomoniasis, Pelvic Inflammatory Disease (PID) or any other sexually transmitted disease? No Do you know if you are a Group B Streptococcus Carrier? No Did you have the Chicken Pox/Varicella? No Were you vaccinated against Chicken Pox/Varicella? Yes Have you had any other infectious diseases? No Debbi Nichols has been instructed on the following: random urine drug screening routine labs and an initial urine drug screen has been ordered. Debbi Jaquez Kb has also been informed of the cardiac cath lab radiology technologist provider recommendation for first trimester nuchal lucency testing to be performed during her . Debbi Jaquez Kb has also been made aware of the time sensitive nature for this testing to be completed. . The patient now has a gestational age of 13w3d. The patient would be due for this testing prior to 14 weeks gestation which would be on 10/26/2023. Ethnicity Based Genetic Testing has been reviewed and the [facility] information sheet has been provided to the patient in their After Visit Summary. The patient was also advised that genetic testing may not be covered by all insurances. The patients states that they understand this information. The patient states that she has not had the genetic screening for Cystic Fibrosis and Sickle Cell Screen done in the past during a previous . . The patient has agreed that she does want genetic testing for Horizon 14 The following Labs have been ordered: Obstetric Panel, HgA1c, Early Glucose Screen, HIV with verbal Consent, Panorama with gender, and Horizon 14 panel She is aware that her insurance may or may not cover Panorama and/or Horizon 14 test and discussed aparicio only sanon for test(s) - info given today in her after visit summary . She would like to proceed with testing. Electronically signed by: Catherine Hodges RN 10/22/24 11:10 AM EST Last Filed Vital Signs Vital Sign Reading Time Taken Comments Blood Pressure 124/70 11/29/2024 3:04 PM EDT Pulse 114 11/29/2024 3:00 PM EDT Temperature - - Respiratory Rate - - Oxygen Saturation - - Inhaled Oxygen Concentration - - Weight 88 kg (194 lb) 11/29/2024 3:04 PM EDT Height 154.9 cm (5' 1 ) 11/14/2024 10:45 AM EDT Body Mass Index 36.66 11/14/2024 10:45 AM EDT Plan of Treatment Upcoming Encounters Date Type Department Care Team (Late st Contact Info) Description 12/12/2024 3:00 PM EDT Routine Obstetrics and Gynecology - [address] [phone] Rolly Levy, [facility] [address] [place] [phone] 12/31/2024 10:00 AM EDT Ancillary Procedure Maternal Medicine - [address] [phone] 01/09/2025 11:15 AM EDT Routine Obstetrics and Gynecology - [address] [phone] Rekha Plummer MD [address] [place] [phone] Health Maintenance Due Date Last Done Comments DTaP,Tdap,and Td Vaccines (1 - Tdap) 2010 Hepatitis B Vaccines (1 of 3 - 19+ 3-dose series) 2010 COVID-19 Vaccine ( - 2023-2 5 season) 2024 Cholesterol Screening (Lipid Panel) 09/24/2024 Influenza Vaccine (Season Ended) 2025 Social Influencers of Health Screening 10/16/2025 10/16/2024 Depression Screening 12/05/2025 12/05/2024 Cervical Cancer Screening: HPV 11/13/2029 11/13/2024 HIV Screening Completed 10/22/2024 Hepatitis C Screening Completed 10/22/2024 HIB Vaccines Aged Out No longer eligi [...] patient's age to complete this topic Meningococcal ACWY Vaccine Aged Out N o longer eligible based on patient's age to complete this topic Meningococcal B Vacine Aged Out No lo nger eligible based on patient's age to complete this topic Pneumococcal Vaccine: Pediat rics (0 to 5 Years) and At-Risk Patients (6 to 64 Years) Aged Out No longer eligi ble based on patient's age to complete this topic RSV Immunization Patients Un amber 20 months Aged Out No longer eligible b ased on patient's age to complete this topic Procedures Procedure Name Priority Date/Time Associated Diagnosis Comments CHLAMYDIA TRACHOMATIS AND NEISSERIA GONORRHOEAE PCR Routine 11/13/2024 2:18 PM EDT Screen for STD (sexually transmitted disease) ASPARTATE AMINOTRANSFERASE Routine 11/13/2024 1:37 PM EDT Obesity in History of gestational hypertension ALANINE AMINOTRANSFERASE Routine 025 1:37 PM EDT Obesity in History of gestational hypertension PROTEIN AND CREATININE WITH RATIO, URINE Routine 11/13/2024 1:37 PM EDT Obesity in History of gestational hypertension CREATININE, SERUM Routine 11/13/2024 1:3 7 PM EDT Obesity in History of gestational hypertension PAP SMEAR Routine 11/13/2024 1:18 PM EDT Screening for cervical cancer HPV WITH REFLEX GENOTYPE Routine 025 1:18 PM EDT Screening for cervical cancer HORIZON 14, BRANT Routine 11/13/2024 12 :43 PM EDT GTT GESTATIONAL 3 HOUR Routine 5 12:05 PM EST Obesity in PCOS (polycystic ovarian syndrome) History of delivery, currently care, subsequent in first trimester Glucose tolerance test abnormal GTT GESTATIONAL 2 HOUR Routine 11:01 AM EST Obesity in PCOS (polycystic ovarian syndrome) History of delivery, currently care, subsequent in first trimester Glucose tolerance test abnormal GTT GESTATIONAL 1 HOUR Routine 5 9:59 AM EST Obesity in PCOS (polycystic ovarian syndrome) History of delivery, currently care, subsequent in first trimester Glucose tolerance test abnormal GTT GESTATIONAL FASTING Routine 11/10/19 25 8:56 AM EST Obesity in PCOS (polycystic ovarian syndrome) History of delivery, currently care, subsequent in first trimester Glucose tolerance test abnormal GLUCOSE TOLERANCE TEST, 3H GESTATION Routine 11/09/2024 8:56 AM EST Obesity in PCOS (polycystic ovarian syndrome) History of delivery, currently care, subsequent in first trimester Glucose tolerance test abnormal US OB LESS 14 WKS SINGLE OR FIRST GESTATION Routine 11/06/2024 9:55 AM EST Encounter for (NT) nuchal translucency scan US OB LESS 14 WKS NUCHAL MEASUREMENT Routine 11/06/2024 9:55 AM EST Encounter for (NT) nuchal translucency scan HORIZON 14, BRANT Routine 11/01/2024 1: 34 PM EST PANORAMA TEST Routine 5 4:06 PM EST US OB LESS 14 WKS SINGLE OR FIRST GESTATION Routine 10/22/2024 1:36 PM EST care, subsequent in first trimester CBC WITH AUTO DIFFERENTIAL Routine 10/22/2024 12:59 PM EST care, subsequent in first trimester GTT GESTATIONAL 1 HOUR Routine 12:59 PM EST care, subsequent in first trimester VENIPUNCTURE CHARGE Routine 10/22/2024 1 2:59 PM EST Encounter of female for testing for genetic disease carrier status for procreative management VARICELLA ZOSTER ANTIBODY IGG Routine 10/22/2024 12:59 PM EST care, subsequent in first trimester HEPATITIS B SURFACE ANTIGEN WITH CONFIRMATION Routine 10/22/2024 12:59 PM EST care, subsequent in first trimester CBC AND DIFFERENTIAL Routine 10/22/2024 12:59 PM EST care, subsequent in first trimester DRUG ABUSE SCREEN EXPANDED WITH REFLEX CONFIRMATION, URINE Routine 10/22/2024 12:59 PM EST care, subsequent in first trimester HEPATITIS C ANTIBODY Routine 10/22/2024 12:59 PM EST care, subsequent in first trimester HIV 1, 2 ANTIBODY, P24 ANTIGEN WITH REFLEX TO DIFFERENTIATION Routine 10/22/2024 12:59 PM EST care, subsequent in first trimester RUBELLA ANTIBODY IGG Routine 10/22/2024 12:59 PM EST care, subsequent in first trimester TREPONEMA PALLIDUM ANTIBODY WITH REFLEX TO RPR AND PARTICLE AGGLUTINATION Routine 10/22/2024 12:59 PM EST care, subsequent in first trimester TYPE AND SCREEN Routine 10/22/2024 12:59 PM EST care, subsequent in first trimester GLUCOSE TOLERANCE TEST, 1H GESTATION Routine 10/22/2024 12:59 PM EST care, subsequent in first trimester HEMOGLOBIN A1C Routine 10/22/2024 12:59 PM EST care, subsequent in first trimester CULTURE URINE Routine 10/22/2024 12:59 PM EST care, subsequent in first trimester POC , URINE DIAGNOSTIC Routine 09/25/2024 10:48 AM EST examination or test, positive result from Last 3 Months Results * Chlamydia trachomatis and Neisseria gonorrhoeae molecular study (11/13/2024 2:18 PM EDT) Pathologist [facility] Neisseria gonorrhoeae PCR Negative Negative LAB MOLECULAR DIAGNOSTICS METHOD 11/14/2024 10:29 AM EDT [facility] Chlamydia trachomatis PCR Negative Negative LAB MOLECULAR DIAGNOSTICS METHOD 11/14/2024 10:29 AM EDT [facility] Swab Cervix uteri structure / Unknown Non-blood Collection / Unknown 11/13/2024 2:18 PM EDT 11/13/2024 2:18 PM EDT Rekha Plummer MD LAB MICROBIOLOGY - GENERAL ORDERABLES Final Result [facility] [address] [place] [address], * Protein and creatinine with ratio, urine (11/13/2024 1:37 PM EDT) Protein, Urine 15 mg/dL LAB CHEMISTRY METHOD 11/13/2024 5:51 PM EDT [facility] Prot/Creat, Ur 0.06 <=0.20 mg/mg creat LAB CHEMISTRY METHOD 11/13/2024 5:51 PM EDT [facility] Creatinine, Urine 231.0 mg/dL LAB CHEMISTRY METHOD 11/13/2024 5:51 PM EDT [facility] Urine Urine specimen obtained by clean catch procedure / Unknown Non-blood Collection / Unknown 11/13/2024 1:37 PM EDT 11/13/2024 1:37 PM EDT us Rekha Plummer MD LAB URINE ORDERABLES Final Result Performing Organization Address [facility] Co de Phone Number [facility] [address] [place] [address], [place] [phone] * Creatinine (11/13/2024 1:37 PM EDT) Creatinine 0.68 0.50 - 1.10 mg/dL LAB CHEMISTRY METHOD 11/13/2024 5:12 PM EDT [facility] eGFR 118 >=60 mL/min/1. 73m2 LAB CHEMISTRY METHOD 11/13/2024 5:12 PM EDT [facility] Comment:Calculation based on the??Chronic Kidney Disease Epidemiology Collaboration (CKD-EPI) equation refit??without adjustment for race. Blood Venous blood specimen / Unknown Venipuncture / Unknown 11/13/2024 1:37 PM EDT 11/13/2024 1:37 PM EDT us Rekha Plummer MD LAB BLOOD ORDERABLES Final Result Performing Organization Address City/[facility]/ZIP Co de Phone Number [facility] [address] [place] [address], [place] [phone] * Alanine aminotransferase (11/13/2024 1:37 PM EDT) ALT (SGPT) 30 10 - 60 unit/L LAB CHEMISTRY METHOD 11/13/2024 5:12 PM EDT [facility] Blood Venous blood specimen / Unknown Venipuncture / Unknown 11/13/2024 1:37 PM EDT 11/13/2024 1:37 PM EDT us Rekha Plummer MD LAB BLOOD ORDERABLES Final Result Performing Organization Address City/[facility]/ZIP Co de Phone Number [facility] [address] [place] [address], [place] [phone] * Aspartate aminotransferase (11/13/2024 1:37 PM EDT) Pathologist [facility] AST (SGOT) 23 10 - 42 unit/L LAB CHEMISTRY METHOD 11/13/2024 5:12 PM EDT [facility] Blood Venous blood specimen / Unknown Venipuncture / Unknown 11/13/2024 1:37 PM EDT 11/13/2024 1:37 PM EDT us Rekha Plummer MD LAB BLOOD ORDERABLES Final Result Performing Organization Address [facility]/ZIP Co de Phone Number [facility] [address] [place] [address], [place] [phone] * HPV with reflex genotype (11/13/2024 1:18 PM EDT) [facility] HPV Negative Negative LAB MICROBIOLOGY METHOD 11/14/2024 1:55 PM EDT [facility] Brushing/Spatula Cervix uteri structure / Unknown 11/13/2024 1:18 PM EDT 11/14/2024 5:57 AM EDT us Rekha Plummer MD LAB MOLECULAR DIAGNOSTICS O RDERABLES Final Result Performing Organization Address City/[facility]/ZIP Co de Phone Number [facility] [address] [place] [address], [place] [phone] * Pap smear (11/13/2024 1:18 PM EDT) Pathologist [facility] Interpretation Negative for intraepithelial lesion or malignancy 11/15/2024 9:12 AM EDT [facility] General Categorization Negative 11/15/2024 9:12 AM EDT [facility] Other Findings Shift in hoda suggestive of bacterial vaginosis 11/15/2024 9:12 AM EDT [facility] Specimen Adequacy Satisfactory for evaluation, endocervical/stock sformation zone component present 11/15/2024 9:12 AM EDT [facility] Pap Methodology Liquid Based Pap Test 11/15/2024 9:12 AM EDT [facility] Disclaimer The Pap test is a screening test which carries an inherent false negative rate. These test results should be correlated with the patient's clinical findings and history. This Pap test was processed using an automated screening system. Technical cytopathology services provided by [facility], at [address] [place] [id number] (CLIA # [id number]/Shayan Russ MD, Transaction Advisory Services Manager.) 11/15/2024 9:12 AM EDT [facility] Console Pap Interpretation Reported 11/15/2024 9:12 AM EDT [facility] Brushing/Spatula Cervix uteri structure / Unknown 11/13/2024 1:18 PM EDT 11/13/2024 1:18 PM EDT us Rekha Plummer MD LAB CYTOLOGY ORDERABLES Fin al Result [facility] [address] [place] [address], * Horizon 14 (11/13/2024 12:43 PM EDT) Only the most recent of2 resultswithin the time period is included. Blood Venous blood specimen / Unknown us Rekha Plummer MD LAB BLOOD ORDERABLES Final Result * GTT gestational 3 hour (11/09/2024 12:05 PM EST) [facility] Glucose, 3 HR Gestational 138 See Comment mg/dL LAB CHEMISTRY METHOD 11/09/2024 5:00 PM EST [facility] Blood Venous blood specimen / Unknown Venipuncture / Unknown 11/09/2024 12:05 PM EST 11/09/2024 12:05 PM EST Narrative [facility] - 11/09/2024 5:00 PM EST Gestational 3 hour GTT Reference Range: Normal: ??Fasting: ?< 95 ??mg/dL ? 60 minute: ?< 180 mg/dL ? 120 minute: ?? < 155 mg/dL ? 180 minute: ?? < 140 mg/dL us Rekha Plummer MD LAB BLOOD ORDERABLES Final Result Performing Organization Address City/[facility]/ZIP Co de Phone Number [facility] [address] [place] [address], [place] [phone] * GTT gestational 2 hour (11/09/2024 11:01 AM EST) [facility] Glucose, 2 HR Gestational 199 See Comment mg/dL LAB CHEMISTRY METHOD 11/09/2024 5:00 PM EST [facility] Blood Venous blood specimen / Unknown Venipuncture / Unknown 11/09/2024 11:01 AM EST 11/09/2024 11:01 AM EST us Rekha Plummer MD LAB BLOOD ORDERABLES Final Result Performing Organization Address [facility]/ZIP Co de Phone Number [facility] [address] [place] [address], [place] [phone] * GTT gestational 1 hour (11/09/2024 9:59 AM EST) Only the most recent of2 resultswithin the time period is included. Glucose, 1 HR Gestational 203 See Comment mg/dL LAB CHEMISTRY METHOD 11/09/2024 5:01 PM EST [facility] Blood Venous blood specimen / Unknown Venipuncture / Unknown 11/09/2024 9:59 AM EST 11/09/2024 9:59 AM EST us Rekha Plummer MD LAB BLOOD ORDERABLES Final Result Performing Organization Address [facility] de Phone Number [facility] [address] [place] [address], [place] [phone] * (ABNORMAL) GTT gestational fasting (11/09/2024 8:56 AM EST) [facility] Glucose, GTT - Fasting 104(H) 70 - 100 mg/dL LAB CHEMISTRY METHOD 11/09/2024 5:00 PM EST [facility] Blood Venous blood specimen / Unknown Venipuncture / Unknown 11/09/2024 8:56 AM EST 11/09/2024 8:56 AM EST us Rekha Plummer MD LAB BLOOD ORDERABLES Final Result Performing Organization Address [facility] de Phone Number [facility] [address] [place] [address], [place] [phone] * US OB Less 14 Wks Nuchal Measurement (11/06/2024 9:55 AM EST) Anatomical Region Laterality Modality Body Ultrasound 11/06/2024 9:27 AM EST Narrative 11/06/2024 11:00 AM EST OBSTETRICS REPORT ?(Signed Final 11/06/2024 11:00 am) PATIENT INFO: ID #: ? [id number] ? : ??[birth year] (34 yrs)(F) Name: ? DEBBI L ? Visit Date: 11/06/2024 09:27 am ? KB PERFORMED BY: Attending: ?Radha Jean MD Performed By: ? Janneth Lee RDMS Referred By: ?Rekha Plummer MD Ref. Address: ? [address] ? [place] ??[address] Location: ? [facility] SERVICE(S) PROVIDED: US < 14 weeks Abdominal Ultrasound ?99319 US Nuchal Translucency ?[address] INDICATIONS: Medication exposure, first trimester ? O09.891 Obesity complicating , 1st ?O99.211 trimester Encounter for screening for nuchal ?? Z36.82 translucency Encounter for screening for ?Z36.3 malformations 13 weeks gestation of ?Z3A.13 TECHNIQUE/SCAN QUALITY: Technique: ?? Transabdominal Scan ? Satisfactory Quality: OB HISTORY: : ?4 ? Term: ?? 2 ? SAB: ?? 1 Living: ? 2 VITAL SIGNS: Weight (lb) ?? Height ?BMI 178 ? 5'1 ?33.63 EVALUATION: Number Of Fetuses: ? 1 Heart Rate(bpm): ?? 149 Cardiac Activity: ?Observed Regular rhythm Presentation: ?Variable Placenta Location: ?Anterior Appearance: ?Grade 0 Cord Insertion: ?Visualized Amniotic Fluid KELLY FV: ?Within Normal Limits BIOMETRY: GESTATIONAL AGE: LMP: ? 15w 4d ?Date: ??07/20/24 ? JOHN: ?? 04/26/25 Best: ?13w 2d ?? Det. By: ??U/S C R L ?JOHN: ?? 05/12/25 ? (10/22/24) 1ST TRIMESTER GENETIC SONOGRAM SCREENING: CRL: ?71.1 ??mm ? G.Age: ?? 13w 2d ? JOHN: ?? 05/12/25 Nuc Trans: ? 1.6 ??mm Nasal Bone: ? Present STANDARD ANATOMY: Cranium: ?Normal appearance Choroid Plexus: ? Normal appearance Stomach: ?Normal appearance Abdominal Wall: ? Normal appearance Cord Vessels: ? Normal 3-Vessel Cord Bladder: ?Normal appearance Spine: ?Normal appearance Upper Extremities: ?Seen Lower Extremities: ?Seen CERVIX UTERUS ADNEXA: Cervix Within Normal Limits Abdominally Uterus Size(cm) ?13.35 ?? x ??11.86 ?? x ??8.53 Uterus Vol(ml): ?707.15 Anteverted, anteflexed. Within Normal Limits Right Ovary Size(cm) ? 1.91 ?? x ?? 2.76 ?? x ??2.36 ?Vol(ml): 6.51 Normal in size and appearance. It is found between the uterus and the pelvic sidewall. Left Ovary Size(cm) ? 2.6 ??x ?? 2.66 ?? x ??2.08 ?Vol(ml): 7.53 Normal in size and appearance. It is found between the uterus and the pelvic sidewall. COMMENTS: Ms. Nichols is being seen for first trimester screening. - Her medical history is significant for bipolar, anxiety, depression and PCOS. ??She takes 25 mg Lamictal daily. Her obstetrical history is significant for two term deliveries and one miscarriage. She reports having hypertension with both pregnancies. - Cell free DNA testing was obtained in this . ??Results were low-risk for all conditions assessed. - Ultrasound findings: The nuchal translucency measurement is < 95th% for the gestational age. - biometry is consistent with dates. ??Assessment of the anatomy is appropriate for the gestational age. - Plan: 1. A detailed ultrasound and cervical length screening for risk of have been scheduled. - 2. The patient should be offered second trimester MSAFP only, to assess for risk of an open neural tube defect. Radha Jean MD Electronically Signed Final Report ?? 11/06/2024 11:00 am Procedure Radha Davis MD - 11/06/2024 OBSTETRICS REPORT (Signed Final 11/06/2024 11:00 am) PATIENT INFO: ID #: [id number] : [birth year] (34 yrs)(F) Name: DEBBI Jaquez Visit Date: 11/06/2024 09:27 am KB PERFORMED BY: Attending: Radha Jean MD Performed By: Janneth Lee [facility] Referred By: Rekha Plummer MD Ref. Address: [address] [place] [address] Location: [facility] SERVICE(S) PROVIDED: US < 14 weeks Abdominal Ultrasound 44103 US Nuchal Translucency [address]455 INDICATIONS: Medication exposure, first trimester O09.891 Obesity complicating , 1st O99.211 trimester Encounter for screening for nuchal Z36.82 translucency Encounter for screening for Z36.3 malformations 13 weeks gestation of Z3A.13 TECHNIQUE/SCAN QUALITY: Technique: Transabdominal Scan Satisfactory Quality: OB HISTORY: : 4 Term: 2 SAB: 1 Livin VITAL SIGNS: Weight (lb) Height BMI 178 5'1 33.63 EVALUATION: Number Of Fetuses: 1 Heart Rate(bpm): 149 Cardiac Activity: Observed Regular rhythm Presentation: Variable Placenta Location: Anterior Appearance: Grade 0 Cord Insertion: Visualized Amniotic Fluid KELLY FV: Within Normal Limits BIOMETRY: GESTATIONAL AGE: LMP: 15w 4d Date: 07/20/24 JOHN: 04/26/25 Best: 13w 2d Det. By: Jewel Jaquez JOHN: 05/12/25 (10/22/24) 1ST TRIMESTER GENETIC SONOGRAM SCREENING: CRL: 71.1 mm G.Age: 13w 2d JOHN: 05/12/25 Nuc Trans: 1.6 mm Nasal Bone: Present STANDARD ANATOMY: Cranium: Normal appearance Choroid Plexus: Normal appearance Stomach: Normal appearance Abdominal Wall: Normal appearance Cord Vessels: Normal 3-Vessel Cord Bladder: Normal appearance Spine: Normal appearance Upper Extremities: Seen Lower Extremities: Seen CERVIX UTERUS ADNEXA: Cervix Within Normal Limits Abdominally Uterus Size(cm) 13.35 x 11.86 x 8.53 Uterus Vol(ml): 707.15 Anteverted, anteflexed. Within Normal Limits Right Ovary Size(cm) 1.91 x 2.76 x 2.36 Vol(ml): 6.51 Normal in size and appearance. It is found between the uterus and the pelvic sidewall. Left Ovary Size(cm) 2.6 x 2.66 x 2.08 Vol(ml): 7.53 Normal in size and appearance. It is found between the uterus and the pelvic sidewall. COMMENTS: Ms. Nichols is being seen for first trimester screening. - Her medical history is significant for bipolar, anxiety, depression and PCOS. She takes 25 mg Lamictal daily. Her obstetrical history is significant for two term deliveries and one miscarriage. She reports having hypertension with both pregnancies. - Cell free DNA testing was obtained in this . Results were low-risk for all conditions assessed. - Ultrasound findings: The nuchal translucency measurement is < 95th% for the gestational age. - biometry is consistent with dates. Assessment of the anatomy is appropriate for the gestational age. - Plan: 1. A detailed ultrasound and cervical length screening for risk of have been scheduled. - 2. The patient should be offered second trimester MSAFP only, to assess for risk of an open neural tube defect. Radha Jean MD Electronically Signed Final Report 11/06/2024 11:00 am Rekha Plummer MD IMG OB US PROCEDURES Final Result * US OB Less 14 Wks Single or First Gestation (11/06/2024 9:55 AM EST) Only the most recent of2 resultswithin the time period is included. Anatomical Region Laterality Modality Body Ultrasound 11/06/2024 9:27 AM EST Narrative 11/06/2024 11:00 AM EST OBSTETRICS REPORT ?(Signed Final 11/06/2024 11:00 am) PATIENT INFO: ID #: ? [id number] ? : ??[birth year] (34 yrs)(F) Name: ? DEBBI Jaquez ? Visit Date: 11/06/2024 09:27 am ? KB PERFORMED BY: Attending: ?Radha Jean MD Performed By: ? Janneth Lee RDMS Referred By: ?Rekha Plummer MD Ref. Address: ? [address] ? [place] ??[address] Location: ? [facility] SERVICE(S) PROVIDED: US < 14 weeks Abdominal Ultrasound ?02863 US Nuchal Translucency ?19901 INDICATIONS: Medication exposure, first trimester ? O09.891 Obesity complicating , 1st ?O99.211 trimester Encounter for screening for nuchal ?? Z36.82 translucency Encounter for screening for ?Z36.3 malformations 13 weeks gestation of ?Z3A.13 TECHNIQUE/SCAN QUALITY: Technique: ?? Transabdominal Scan ? Satisfactory Quality: OB HISTORY: : ?4 ? Term: ?? 2 ? SAB: ?? 1 Living: ? 2 VITAL SIGNS: Weight (lb) ?? Height ?BMI 178 ? 5'1 ?33.63 EVALUATION: Number Of Fetuses: ? 1 Heart Rate(bpm): ?? 149 Cardiac Activity: ?Observed Regular rhythm Presentation: ?Variable Placenta Location: ?Anterior Appearance: ?Grade 0 Cord Insertion: ?Visualized Amniotic Fluid KELLY FV: ?Within Normal Limits BIOMETRY: GESTATIONAL AGE: LMP: ? 15w 4d ?Date: ??07/20/24 ? JOHN: ?? 04/26/25 Best: ?13w 2d ?? Det. By: ??U/S C R L ?JOHN: ?? 05/12/25 ? (10/22/24) 1ST TRIMESTER GENETIC SONOGRAM SCREENING: CRL: ?71.1 ??mm ? G.Age: ?? 13w 2d ? JOHN: ?? 05/12/25 Nuc Trans: ? 1.6 ??mm Nasal Bone: ? Present STANDARD ANATOMY: Cranium: ?Normal appearance Choroid Plexus: ? Normal appearance Stomach: ?Normal appearance Abdominal Wall: ? Normal appearance Cord Vessels: ? Normal 3-Vessel Cord Bladder: ?Normal appearance Spine: ?Normal appearance Upper Extremities: ?Seen Lower Extremities: ?Seen CERVIX UTERUS ADNEXA: Cervix Within Normal Limits Abdominally Uterus Size(cm) ?13.35 ?? x ??11.86 ?? x ??8.53 Uterus Vol(ml): ?707.15 Anteverted, anteflexed. Within Normal Limits Right Ovary Size(cm) ? 1.91 ?? x ?? 2.76 ?? x ??2.36 ?Vol(ml): 6.51 Normal in size and appearance. It is found between the uterus and the pelvic sidewall. Left Ovary Size(cm) ? 2.6 ??x ?? 2.66 ?? x ??2.08 ?Vol(ml): 7.53 Normal in size and appearance. It is found between the uterus and the pelvic sidewall. COMMENTS: Ms. Nichols is being seen for first trimester screening. - Her medical history is significant for bipolar, anxiety, depression and PCOS. ??She takes 25 mg Lamictal daily. Her obstetrical history is significant for two term deliveries and one miscarriage. She reports having hypertension with both pregnancies. - Cell free DNA testing was obtained in this . ??Results were low-risk for all conditions assessed. - Ultrasound findings: The nuchal translucency measurement is < 95th% for the gestational age. - biometry is consistent with dates. ??Assessment of the anatomy is appropriate for the gestational age. - Plan: 1. A detailed ultrasound and cervical length screening for risk of have been scheduled. - 2. The patient should be offered second trimester MSAFP only, to assess for risk of an open neural tube defect. Radha Jean MD Electronically Signed Final Report ?? 11/06/2024 11:00 am Procedure Radha Davis MD - 11/06/2024 OBSTETRICS REPORT (Signed Final 11/06/2024 11:00 am) PATIENT INFO: ID #: [id number] : [birth year] (34 yrs)(F) Name: DEBBI Jaquez Visit Date: 11/06/2024 09:27 am KB PERFORMED BY: Attending: Radha Jean MD Performed By: Janneth Lee [facility] Referred By: Rekha Plummer MD Ref. Address: [address] [place] [address] Location: [facility] SERVICE(S) PROVIDED: US < 14 weeks Abdominal Ultrasound 69781 US Nuchal Translucency 91931 INDICATIONS: Medication exposure, first trimester O09.891 Obesity complicating , 1st O99.211 trimester Encounter for screening for nuchal Z36.82 translucency Encounter for screening for Z36.3 malformations 13 weeks gestation of Z3A.13 TECHNIQUE/SCAN QUALITY: Technique: Transabdominal Scan Satisfactory Quality: OB HISTORY: : 4 Term: 2 SAB: 1 Livin VITAL SIGNS: Weight (lb) Height BMI 178 5'1 33.63 EVALUATION: Number Of Fetuses: 1 Heart Rate(bpm): 149 Cardiac Activity: Observed Regular rhythm Presentation: Variable Placenta Location: Anterior Appearance: Grade 0 Cord Insertion: Visualized Amniotic Fluid KELLY FV: Within Normal Limits BIOMETRY: GESTATIONAL AGE: LMP: 15w 4d Date: 07/20/24 JOHN: 04/26/25 Best: 13w 2d Det. By: Jewel Jaquez JOHN: 05/12/25 (10/22/24) 1ST TRIMESTER GENETIC SONOGRAM SCREENING: CRL: 71.1 mm G.Age: 13w 2d JOHN: 05/12/25 Nuc Trans: 1.6 mm Nasal Bone: Present STANDARD ANATOMY: Cranium: Normal appearance Choroid Plexus: Normal appearance Stomach: Normal appearance Abdominal Wall: Normal appearance Cord Vessels: Normal 3-Vessel Cord Bladder: Normal appearance Spine: Normal appearance Upper Extremities: Seen Lower Extremities: Seen CERVIX UTERUS ADNEXA: Cervix Within Normal Limits Abdominally Uterus Size(cm) 13.35 x 11.86 x 8.53 Uterus Vol(ml): 707.15 Anteverted, anteflexed. Within Normal Limits Right Ovary Size(cm) 1.91 x 2.76 x 2.36 Vol(ml): 6.51 Normal in size and appearance. It is found between the uterus and the pelvic sidewall. Left Ovary Size(cm) 2.6 x 2.66 x 2.08 Vol(ml): 7.53 Normal in size and appearance. It is found between the uterus and the pelvic sidewall. COMMENTS: Ms. Nichols is being seen for first trimester screening. - Her medical history is significant for bipolar, anxiety, depression and PCOS. She takes 25 mg Lamictal daily. Her obstetrical history is significant for two term deliveries and one miscarriage. She reports having hypertension with both pregnancies. - Cell free DNA testing was obtained in this . Results were low-risk for all conditions assessed. - Ultrasound findings: The nuchal translucency measurement is < 95th% for the gestational age. - biometry is consistent with dates. Assessment of the anatomy is appropriate for the gestational age. - Plan: 1. A detailed ultrasound and cervical length screening for risk of have been scheduled. - 2. The patient should be offered second trimester MSAFP only, to assess for risk of an open neural tube defect. Radha Jean MD Electronically Signed Final Report 11/06/2024 11:00 am Rekha Plummer MD IMG OB US PROCEDURES Final Result * Panorama test (10/30/2024 4:06 PM EST) Blood Venous blood specimen / Unknown Rekha Plummer MD LAB BLOOD ORDERABLES Final Result * Hepatitis C antibody (10/22/2024 12:59 PM EST) [facility] Hepatitis C Antibody Negative Negative LAB CHEMISTRY METHOD 10/22/2024 5:34 PM EST [facility] Blood Venous blood specimen / Unknown Venipuncture / Unknown 10/22/2024 12:59 PM EST 10/22/2024 12:59 PM EST Rekha Plummer MD LAB BLOOD ORDERABLES Final Result Performing Organization Address [facility]/ZIP Co de Phone Number [facility] [address] [place] [address], [place] [phone] * HIV 1,2 antibody, p24 antigen with reflex to differentiation (10/22/2024 12:59 PM EST) HIV Combo AB/AG Negative Negative LAB CHEMISTRY METHOD 10/22/2024 5:34 PM EST [facility] Blood Venous blood specimen / Unknown Venipuncture / Unknown 10/22/2024 12:59 PM EST 10/22/2024 12:59 PM EST Narrative [facility] - 10/22/2024 5:34 PM EST This assay is a 4th generation assay allowing for earlier detection of HIV infection by detecting the presence of the HIV-1 p24 antigen as well as the traditional antibodies to HIV type 1 (including group O) and type 2. ??Use of a 4th generation assay is the current CDC recommendation for HIV screening. us Rekha Plummer MD LAB BLOOD ORDERABLES Final Result Performing Organization Address [facility] Co de Phone Number [facility] [address] [place] [address], [place] [phone] * Hepatitis B surface antigen with reflex to confirmation (10/22/2024 12:59 PM EST) Hepatitis B Surface Ag Negative Negative LAB CHEMISTRY METHOD 10/22/2024 5:06 PM EST [facility] Blood Venous blood specimen / Unknown Venipuncture / Unknown 10/22/2024 12:59 PM EST 10/22/2024 12:59 PM EST Narrative [facility] - 10/22/2024 5:06 PM EST Over the counter supplements containing high doses of biotin may interfere with this assay. ??If interference is suspected, patients shoud be retested after refraining from biotin supplements for 72 hours. us Rekha Plummer MD LAB BLOOD ORDERABLES Final Result Performing Organization Address [facility]/ZIP Co de Phone Number [facility] [address] [place] [address], [place] [phone] * Treponema pallidum antibody with reflex to RPR and particle agglutination (10/22/2024 12:59 PM EST) Pathologist [facility] T. Pallidum Antibodies Negative Negative LAB CHEMISTRY METHOD 10/22/2024 6:03 PM EST [facility] Blood Venous blood specimen / Unknown Venipuncture / Unknown 10/22/2024 12:59 PM EST 10/22/2024 12:59 PM EST us Rekha Plummer MD LAB BLOOD ORDERABLES Final Result Performing Organization Address [facility] Co de Phone Number [facility] [address] [place] [address], [place] [phone] * Venipuncture charge (10/22/2024 12:59 PM EST) [facility] Extra Tube Hold for add-ons. 10/22/2024 2:01 PM EST [facility] ([place]) Comment:Auto resulted. Blood Venous blood specimen / Unknown Venipuncture / Unknown 10/22/2024 12:59 PM EST 10/22/2024 12:59 PM EST us Rekha Plummer MD LAB BLOOD ORDERABLES Final Result Performing Organization Address [facility] Co de Phone Number [facility] ([place]) [place], * Drug abuse screen expanded with reflex confirmation, urine (10/22/2024 12:59 PM EST) [facility] Amphetamine Screen, Ur Negative Negative LAB CHEMISTRY METHOD 10/22/2024 3:02 PM EST [facility] Comment:Certain OTC medicati ons containing ephedrine, phenylephrine, pseudoephedrine and phenylpropanolamine can cause false positive results. Barbiturate Screen, Ur Negative Negative LAB CHEMISTRY METHOD 10/22/2024 3:02 PM EST [facility] Benzodiazepine Screen, Ur Negative Negative LAB CHEMISTRY METHOD 10/22/2024 3:02 PM [facility] Cocaine Screen, Ur Negative Negative LAB CHEMISTRY METHOD 10/22/2024 3:02 PM [facility] Opiate Screen, Ur Negative Negative LAB CHEMISTRY METHOD 10/22/2024 3:02 PM [facility] Cannabinoid (THC) Screen, Ur Negative Negative LAB CHEMISTRY METHOD 10/22/2024 3:02 PM [facility] Comment:Specimens from patie nts taking pantoprazole sodium (Protonix) have been shown to produce false positive results. Fentanyl, Ur Negative Negative LAB CHEMISTRY METHOD 10/22/2024 3:02 PM [facility] Oxycodone Screen, Ur Negative Negative LAB CHEMISTRY METHOD 10/22/2024 3:02 PM [facility] Urine Urine specimen obtained by clean catch procedure / Unknown Non-blood Collection / Unknown 10/22/2024 12:59 PM EST 10/22/2024 12:59 PM EST [facility] - 10/22/2024 3:02 PM EST Assay cutoffs: Amphetamines ? 1000 ng/mL Barbiturates ?200 ng/mL Benzodiazepines ?? 200 ng/mL Cocaine ? 300 ng/mL Fentanyl ?1 ng/mL Opiates ? 300 ng/mL Oxycodone ? 100 ng/mL THC ?50 ng/mL Semi-quantitative assay for screening purposes only. Unconfirmed screening result should not be used for non-medical purposes. *POSITIVE RESULTS ARE AUTOMATICALLY SENT FOR ALTERNATE METHOD CONFIRMATION* Rekha Plummer MD LAB URINE ORDERABLES Final Result [facility] [address] [place] [address], * (ABNORMAL) CBC auto differential (10/22/2024 12:59 PM EST) WBC 8.7 4.8 - 10.8 K/mcL LAB HEMETOLOGY METHOD 10/22/2024 2:05 PM [facility] RBC 4.40 3.80 - 4.80 M/mcL LAB HEMETOLOGY METHOD 10/22/2024 2:05 PM [facility] Hemoglobin 13.5 11.5 - 16.0 g/dL LAB HEMETOLOGY METHOD 10/22/2024 2:05 PM [facility] Hematocrit 41.3 35.0 - 47.0 % LAB HEMETOLOGY METHOD 10/22/2024 2:05 PM [facility] MCV 93.9 79.0 - 98.0 FL LAB HEMETOLOGY METHOD 10/22/2024 2:05 PM [facility] MCH 30.7 27.0 - 32.0 pcg LAB HEMETOLOGY METHOD 10/22/2024 2:05 PM [facility] MCHC 32.7 32.0 - 37.0 g/dL LAB HEMETOLOGY METHOD 10/22/2024 2:05 PM [facility] RDW 13.6 11.0 - 15.0 % LAB HEMETOLOGY METHOD 10/22/2024 2:05 PM [facility] Platelets 233 130 - 400 K/mcL LAB HEMETOLOGY METHOD 10/22/2024 2:05 PM [facility] MPV 11.0 7.0 - 11.0 FL LAB HEMETOLOGY METHOD 10/22/2024 2:05 PM [facility] NRBC 0.0 <1.0 % LAB HEMETOLOGY METHOD 10/22/2024 2:05 PM [facility] NRBC Absolute 0.00 <0.10 K/mcL LAB HEMETOLOGY METHOD 10/22/2024 2:05 PM [facility] Neutrophils Relative 74.7 % LAB HEMETOLOGY METHOD 10/22/2024 2:05 PM [facility] Lymphocytes Relative 16.8 % LAB HEMETOLOGY METHOD 10/22/2024 2:05 PM [facility] Monocytes Relative 6.5 % LAB HEMETOLOGY METHOD 10/22/2024 2:05 PM [facility] Eosinophils Relative 1.0 % LAB HEMETOLOGY METHOD 10/22/2024 2:05 PM [facility] Basophils Relative 0.3 % LAB HEMETOLOGY METHOD 10/22/2024 2:05 PM [facility] Immature Granulocytes Relative 0.7 % LAB HEMETOLOGY METHOD 10/22/2024 2:05 PM [facility] Neutrophils Absolute 6.50 1.50 - 7.00 K/mcL LAB HEMETOLOGY METHOD 10/22/2024 2:05 PM [facility] Lymphocytes Absolute 1.46 1.00 - 5.00 K/mcL LAB HEMETOLOGY METHOD 10/22/2024 2:05 PM [facility] Monocytes Absolute 0.57 0.20 - 1.00 K/mcL LAB HEMETOLOGY METHOD 10/22/2024 2:05 PM [facility] Eosinophils Absolute 0.09 0.00 - 0.50 K/mcL LAB HEMETOLOGY METHOD 10/22/2024 2:05 PM [facility] Basophils Absolute 0.03 0.00 - 0.20 K/mcL LAB HEMETOLOGY METHOD 10/22/2024 2:05 PM [facility] Immature Granulocytes Absolute 0.06(H) 0.00 - 0.03 K/mcL LAB HEMETOLOGY METHOD 10/22/2024 2:05 PM EST [facility] Blood Venous blood specimen / Unknown Venipuncture / Unknown 10/22/2024 12:59 PM EST 10/22/2024 12:59 PM EST us Rekha Plummer MD LAB BLOOD ORDERABLES Final Result Performing Organization Address City/[facility]/ZIP Co de Phone Number [facility] [address] [place] [address], [place] [phone] * Rubella antibody IgG (10/22/2024 12:59 PM EST) Rubella IgG Quant 55.0 >=10.0 I Unit/mL LAB CHEMISTRY METHOD 10/22/2024 5:05 PM EST [facility] Rubella IgG Antibody Interp Positive Positive LAB CHEMISTRY METHOD 10/22/2024 5:05 PM EST [facility] Blood Venous blood specimen / Unknown Venipuncture / Unknown 10/22/2024 12:59 PM EST 10/22/2024 12:59 PM EST us Rekha Plummer MD LAB BLOOD ORDERABLES Final Result Performing Organization Address City/[facility]/ZIP Co de Phone Number [facility] [address] [place] [address], [place] [phone] * Type and screen (10/22/2024 12:59 PM EST) ABO Group O 10/22/2024 3:37 PM EST [facility] Rh Type Positive 10/22/2024 3:37 PM EST [facility] Antibody Screen Negative 10/22/2024 3:37 PM EST [facility] Blood Venous blood specimen / Unknown Venipuncture / Unknown 10/22/2024 12:59 PM EST 10/22/2024 12:59 PM EST us Rekha Plummer MD LAB BLOOD BANK TEST ORDERAB LES Final Result Performing Organization Address [facility]/ZIP Co de Phone Number [facility] [address] [place] [address], [place] [phone] * Culture urine (10/22/2024 12:59 PM EST) [facility] Culture, Urine >100,000 CFU/mL Mixed bacterial morphotypes present suggestive of possible contamination during collection. Suggest appropriate recollection if clinically indicated. 10/24/2024 9:53 AM EST [facility] Urine Urine specimen obtained by clean catch procedure / Unknown Non-blood Collection / Unknown 10/22/2024 12:59 PM EST 10/22/2024 12:59 PM EST us Rekha Plummer MD LAB MICROBIOLOGY - GENERAL ORDERABLES Final Result Performing Organization Address [facility] Co de Phone Number [facility] [address] [place] [address], [place] [phone] * (ABNORMAL) Varicella zoster antibody IgG (10/22/2024 12:59 PM EST) [facility] Varicella IgG Negative( A) Positive LAB CHEMISTRY METHOD 10/23/2024 8:55 AM EST [facility] Varicella Zoster IgG 0.05(L) >=1.00 S/CO LAB CHEMISTRY METHOD 10/23/2024 8:55 AM EST [facility] Blood Venous blood specimen / Unknown Venipuncture / Unknown 10/22/2024 12:59 PM EST 10/22/2024 12:59 PM EST Narrative [facility] - 10/23/2024 8:55 AM EST Interpretation >= 1.00 S/CO is considered to be consistent with Immunity Rekha Plummer MD LAB BLOOD ORDERABLES Final Result Performing Organization Address City/[facility]/ZIP Co de Phone Number [facility] [address] [place] [address], [place] [phone] * Hemoglobin A1c (10/22/2024 12:59 PM EST) Pathologist [facility] Hemoglobin A1C 5.4 <6.5 % LAB CHEMISTRY METHOD 10/22/2024 9:18 PM EST [facility] Mean Bld Glu Estim. 108 mg/dL LAB CHEMISTRY METHOD 10/22/2024 9:18 PM EST [facility] Blood Venous blood specimen / Unknown Venipuncture / Unknown 10/22/2024 12:59 PM EST 10/22/2024 12:59 PM EST Rekha Plummer MD LAB BLOOD ORDERABLES Final Result Performing Organization Address [facility]/ZIP Co de Phone Number [facility] [address] [place] [address], [place] [phone] * (ABNORMAL) POC , urine manually resulted (09/25/2024 10:48 AM EST) [facility] HCG, Ur POC Positive(A ) Negative POC hCG Int QC Pass? Yes Yes Urine Urine specimen obtained by clean catch procedure / Unknown 09/25/2024 10:48 AM EST Shayy Bach CNM POINT OF CARE TEST ENTER/EDIT ORDERABLES Final Result from Last 3 Months Insurance [employer] Care Teams Manager Internet Relationship Specialty Start Date End Date Calvin Sophia [address] [place] [phone] PCP - General 09/24/24
== END 2024-12-06 10:20 | disposition home or self-care (01) ==
LOC: HO.HMCH 09:35
DX: Z34.92 Encounter for supervision of normal pregnancy, unspecified, second trimester (principal)

== ENCOUNTER → 2024-12-06 09:34 | Outpatient (BNVA) | payer OTHER, SELFPAY | DX: O99.342 Other mental disorders complicating pregnancy, second trimester (principal); F31.81 Bipolar II disorder | CPT/HCPCS: 96127 ==

== ENCOUNTER 2024-12-15 18:43 | Emergency (ER) | payer OTHER, SELFPAY ==
--- NOTE | ~2024-12-15 | US_ITS ---
CLINICAL HISTORY: 5mos gestation, no mvmt since this am, vaginal bld US OB 1st trimester transabdominal Comparison: None Findings: Single living intrauterine gestation. heart rate 167 beats per minute. Breech presentation. No findings of placental abruption or placenta previa. Normal KELLY. Ovaries normal. IMPRESSION: Single intrauterine in breech position with normal KELLY and no findings of placental abruption. Normal movement identified. This document has been electronically signed by: Antonio Aleman MD on 12/15/2024 19:37:30
--- NOTE | 2024-12-15 18:57 | ED_ITS ---
HPI - General Adult General Chief complaint: Urogenital-Female Stated complaint: pink vaginal d/c 5 months Time Seen by Provider: 12/15/24 21:35 Source: patient Mode of arrival: ambulatory Limitations: no limitations History of Present Illness ED Provider: HPI narrative: Patient is 20 weeks noticed pinkish vaginal spotting prior to arrival no abdominal cramps pt is A1 Related Data Home Medications ?Medication ?Instructions ?Recorded ?Confirmed blood sugar diagnostic (FreeStyle #10 ea 12/06/24 12/06/24 Lite Strips) blood-glucose meter (FreeStyle #1 ea 12/06/24 12/06/24 [place] Lite kit) cariprazine 1.5 mg capsule mg PO DAILY 12/06/24 12/06/24 (Vraylar) cholecalciferol (vitamin D3) 125 125 mcg PO DAILY 12/06/24 12/06/24 mcg (5,000 unit) tablet lamotrigine 25 mg tablet mg PO DAILY 12/06/24 12/06/24 lancets 33 gauge (TRUEplus Lancets) #100 ea 12/06/24 12/06/24 vitamin with calcium tab PO DAILY 12/06/24 12/06/24 no.72-iron 27 mg-folic acid 1 mg tablet ( Vitamins Plus Low Iron) promethazine 25 mg tablet mg PO BID 12/06/24 12/06/24 Allergies Allergy/AdvReac Type Severity Reaction Status Date / Time acetaminophen [From Tylenol] Allergy Severe Anaphylaxis Verified 12/15/24 19:03 Review of Systems 2 Review of Systems: Yes all other systems are reviewed and are negative [facility] Past Medical History Medical History Bipolar disorder Insomnia Anxiety Depression Surgical History Status post cervical polyp removal Family History Family History Mother HTN (hypertension) Father Diabetes Maternal Grandmother Uterus cancer Maternal Aunt Uterus cancer Social History Social History Household Members: Children Housing: House Alcohol intake: never Patient Tobacco Use Status: Never used Tobacco Smoked in Last 30 Days: No e-Cigarette/Vaping Use: Never Used Use of substances other than those prescribed or required for medical reasons: No Advance Directives: No Advance Directives Information Provided: No Do you have a plan to hurt others: No Plan Patient : No service: No Current occupational status: student Sexual orientation: Straight/Heterosexual Gender identity: Female Cognitive needs: No Hearing needs: No Vision needs: No Physical Exam ED Vital Signs: Vital Signs - 24 hr 12/15/24 19:00 12/15/24 21:42 12/15/24 21:43 Temperature 98.7 F 97.5 F 97.5 F Pulse Rate 110 H 84 84 Respiratory Rate 16 14 14 Blood Pressure 132/84 131/78 131/78 Pulse Oximetry 100 99 99 Oxygen Delivery Method Room Air Room Air Room Air BMI result Body Mass Index 33.6 Appearance: Alert. Oriented X3. No acute distress. Eyes: no pallor or icterus ENT: Pharynx normal. Oral Mucosa moist Neck: Normal inspection. Neck supple. CVS: Normal heart rate and rhythm. Pulses normal. Respiratory: No respiratory distress. Equal air entry bilateral, no wheezing/rales/rhonchi Abd: soft, not tender gravid uterus Skin: Skin warm and dry. Normal skin color. Normal skin turgor. Extremities: No lower extremity edema, no calf tenderness Neuro: Oriented X 3. Course Course Course Narrative: This is a rapid medical exam performed by Maggy Fontenot NP: Additional HPI, ROS, PE not included below will be deferred to primary provider. Patient is a 34-year-old female 5 months gestation, history of miscarriage at 5 mos in the past, JOHN 05/12/25 presenting to the ED with complaint of pink discoloration on toilet paper after urinating today x 3 episodes. Also complains of some left lower quadrant pain/tingling sensation. Denies pain. Last felt movement this morning. Plan: labs, UA Medical Decision Making Medical Decision Making [facility] Narrative: Patient 20 weeks O-positive blood type had pinkish vaginal bleed ultrasound negative for acute advised follow up with Ob G Lab Data [facility] Lab Attestation statement: I reviewed the patient's lab results. 12/15/24 19:12 12/15/24 19:12 Labs: Lab Results 12/15/24 12/15/24 Range/Units 19:12 21:04 WBC 10.2 (4.8-10.8) X10*3/uL RBC 4.37 (4.20-5.50) X10*6/uL Hgb 13.7 (12.0-16.0) g/dl Hct 40.4 (37.0-47.0) % MCV 92.4 (80.0-98.0) fL MCH 31.4 (27.0-33.0) pg MCHC 33.9 (31.0-35.0) g/dl RDW 12.9 (11.0-16.0) % Plt Count 225 (160-400) X10*3/uL MPV 10.7 (9.4-12.3) fL Immature Gran % (Auto) 0.5 H (0.0-0.4) % Neut % (Auto) 73.2 H (45-73) % Lymph % (Auto) 17.4 L (20-40) % [place] % (Auto) 7.5 (2-11) % Eos % (Auto) 1.1 (0-4) % Baso % (Auto) 0.3 (0-2) % Lymph # (Auto) 1.8 (1.2-4.9) X10*3/uL [place] # (Auto) 0.8 (0.1-1.2) X10*3/uL Eos # (Auto) 0.1 (0.0-0.4) X10*3/uL Baso # (Auto) 0.0 (0.0-0.2) X10*3/uL Abs Immat Gran (auto) 0.05 H (0.00-0.03) X10*3/uL Absolute Neuts (auto) 7.5 (2.0-8.3) x10*3/uL Absolute Nucleated RBC 0.000 (0.0-0.012) X10*3/uL Nucleated RBC % (auto) 0.0 (0.0-0.2) /100WBC Sodium 139 (135-145) mmol/L Potassium 4.1 (3.3-5.1) mmol/L Chloride 107 (96-108) mmol/L Carbon Dioxide 22 (22-29) mmol/L Anion Gap 14 (12-20) BUN 8 L (9-16) mg/dL Creatinine 0.85 (0.5-1.4) mg/dL Estim Creat Clear Calc 94.2 Estimated GFR > 60 Random Glucose 90 (60-115) mg/dL Calcium 9.5 (8.4-10.2) mg/dL Total Bilirubin 0.3 (0.0-1.0) mg/dL AST 25 (5-31) U/L ALT 27 (0-31) U/L Alkaline Phosphatase 66 (39-117) U/L Total Protein 6.9 (6.5-8.0) g/dL Albumin 3.9 (3.5-5.0) g/dL Urine Color Yellow Urine Appearance Clear Urine pH 7.5 (5.0-9.0) Ur Specific [place] 1.015 (1.005-1.025) Urine Protein Negative (Neg-Trace) mg/dL Urine Glucose (UA) Negative (Negative) mg/dL Urine Ketones 15 (Negative) mg/dL Urine Blood Moderate (2+) H (Negative) Urine Nitrite Negative (Negative) Ur Leukocyte Esterase Small (1+) H (Negative) Urine RBC 0-2 (0-2) /HPF Urine WBC 0-5 (0-5) /HPF Ur Squamous Epith Cells 6-10 (0-2) /HPF Urine Bacteria 1+ (None Seen) Hyaline Casts 0-2 (0-2) /LPF Blood Type O Positive Independent Interpretation I performed an independent interpretation of an: Ultrasound Radiology Impression Discussion of test interpretation with radiology: I have reviewed the radiologist's reading. Radiologist Impression: [place] [id number] Ultrasound Report Signed Patient: Alissa Nichols MR#: [id number] : 1990 Acct:[id number] Age/Sex: 34 / F ADM Date: 12/15/24 Loc: HO.ED Attending Dr: Ordering Physician: Vicky Fontenot NP Date of Service: 12/15/24 Procedure(s): US OB limited Accession Number(s): [id number] cc: Physician,Unknown ; Vicky Fontenot NP~ CLINICAL HISTORY: 5mos gestation, no mvmt since this am, vaginal bld US OB 1st trimester transabdominal Comparison: None Findings: Single living intrauterine gestation. heart rate 167 beats per minute. Breech presentation. No findings of placental abruption or placenta previa. Normal KELLY. Ovaries normal. IMPRESSION: Single intrauterine in breech position with normal KELLY and no findings of placental abruption. Normal movement identified. This document has been electronically signed by: Antonio Aleman MD on 12/15/2024 19:37:30 Discharge Plan Discharge Clinical Impression: Second trimester bleeding Patient Disposition: Home, Self-Care Instructions: Threatened Miscarriage (ED) Additional Instructions: At this time Your ultrasound is normal showing IUP with heart rate of 167 Report to the ER/Ob G if bleeding continues Prescriptions: No Action Vitamin Plus Low Iron 27 mg iron- 1 mg tablet PO DAILY promethazine 25 mg tablet PO BID (DME) lancets [TRUEplus Lancets] 33 gauge misc See Rx Instructions .ROUTE .MEDSUPPLY Qty: 100 Rx Instructions: As directed (DME) FreeStyle Lite Strips Strip See Rx Instructions .ROUTE 3XD Qty: 10 Rx Instructions: As directed (DME) blood-glucose meter [FreeStyle [place] Lite] Kit See Rx Instructions .ROUTE .MEDSUPPLY Qty: 1 Rx Instructions: As directed lamotrigine 25 mg tablet PO DAILY Vraylar 1.5 mg capsule PO DAILY cholecalciferol (vitamin D3) 125 mcg (5,000 unit) tablet 125 mcg PO DAILY Interventions: ED Discharge Assessment Last Done: 12/15/24 21:43 Discharge Date/Time: 12/15/24 21:44 Print Language: Martiniquais
[2024-12-15 19:00] VITALS: BP 132/84; PULSE 110; RESP 16; TEMP 37.1; O2SAT 100; BMI 33.6
[2024-12-15 19:19] LABS: MANUAL DIFF FLAG NO
[2024-12-15 19:20] LABS: Basophils Percent Auto 0.3 % (0-2); Eosinophils Absolute Auto 0.1 X10*3/uL (0.0-0.4); Eosinophils Percent Auto 1.1 % (0-4); Hematocrit 40.4 % (37.0-47.0); Hemoglobin 13.7 g/dl (12.0-16.0); Imm Gran Abs Auto 0.05 X10*3/uL (0.00-0.03); Imm Gran Pct Auto 0.5 % (0.0-0.4); Lymphocytes Absolute Auto 1.8 X10*3/uL (1.2-4.9); Lymphocytes Percent Auto 17.4 % (20-40); Mean Corpuscular HGB Conc 33.9 g/dl (31.0-35.0); Mean Corpuscular Hemoglobin 31.4 pg (27.0-33.0); Mean Corpuscular Volume 92.4 fL (80.0-98.0); Mean Platelet Volume 10.7 fL (9.4-12.3); Monocytes Absolute Auto 0.8 X10*3/uL (0.1-1.2); Monocytes Percent Auto 7.5 % (2-11); Neutrophils Absolute Auto 7.5 x10*3/uL (2.0-8.3); Neutrophils Percent Auto 73.2 % (45-73); Platelet Count 225 X10*3/uL (160-400); Red Blood Count 4.37 X10*6/uL (4.20-5.50); Red Cell Distribution Width 12.9 % (11.0-16.0); White Blood Count 10.2 X10*3/uL (4.8-10.8)
--- OUTSIDE RECORDS SUMMARY | 2024-12-15 19:28 | XMS_ITS | Clinical Summary ---
Author Organization [facility] [address] [facility] lding Address [address] [place] [address] Phone Care Team Providers Care Blade Grader Operator Name Role Phone Sophia Simpson Primary Care Provider [phone] Allergies Active Allergy Reactions Criticality Noted Date Comments Acetaminophen Anaphylaxis,Hives High 10/12/2016 Medications vit,la [id number] 27 mg iron- 1 mg tabletIndication s: [...] 3- hr GTT Forward chart to P [id number] ([facility]) Nutrition teaching: scheduled Diabetic teaching and [...] between 01/06-01/20) Serial growth ultrasounds after diagnosis Accounts Payable Payroll Coordinator on shoulder dystocia: 11/29/2024 Deliver by 40 [...] EDT): Vaccinate PP [facility], [facility] Overview (11/12/2024): 1. [facility] site: [facility]: [address] [place] [address] ([phone]) 2. Delivery site: [facility] 3. Mobile Mommas: 4. Dating criteria: LMP [...] with therapy and meds. Bipolar 1 disorder (CMS/HCC V24, CMS/HCC V28) Overview (09/25/2024): Stopped all meds with pos [...] BMI of 50 by 28wks transfer to [facility] DVT prophylaxis- Lovenox if CS and BMI >35 Assessment & Plan (11/13/2024 4:40 PM EDT): Start ASA PCOS (polycystic ovarian syndrome) 01/28/2017 Estimated Date of Delivery Comme nts Yes 05/12/2025 Based on Ultraso und Resolved Problems Problem Noted Date Diagnosed Date Resolved Date Gingivitis 11/02/2024 11/13/2024 Encounters Date Type Department Care Team Description 12/12/2024 3:00 PM EDT Routine Obstetrics and Gynecology - [address] [phone] Rolly Levy CNM Supervision of other high risk pregnancies, second trimester (Primary Dx); Diet controlled gestational diabetes mellitus (GDM) in second trimester; 18 weeks gestation of ; Screening for genetic disease carrier status 12/10/2024 Telephone Obstetrics and Gynecology - [facility] [address] [place], [place] [phone] Naey Carrizales, RN GDM 12/03/2024 [facility] [address] [place], [place] [phone] Naye Carrizales, RN GDM 11/29/2024 3:00 PM EDT Routine Obstetrics and Gynecology - [place] [address] [place] [phone] Rolly Levy CNM Diet controlled gestational diabetes mellitus (GDM) in second trimester (Primary Dx); 16 weeks gestation of 11/26/2024 Telephone Obstetrics and Gynecology - [address] [phone] Naye Carrizales, RN GDM 11/19/2024 Telephone Obstetrics and Gynecology - [address] [phone] Naye Carrizales RN GDM 11/14/2024 10:30 AM EDT Nutrition Internal Medicine - [place] [address] [place] [phone] Diet controlled gestational diabetes mellitus (GDM) in second trimester (Primary Dx) 11/13/2024 1:35 PM EDT Lab Draw Station - [address] Obesity in ; History of gestational hypertension 11/13/2024 1:15 PM EDT Initial Obstetrics and Gynecology - [address] [phone] Rekha Plummer MD GA: 14w2d 11/12/2024 [facility] - [address] [phone] Naye Carrizales, RN new diagnosis gestational diabetes 11/09/2024 [facility] - [address] [phone] Shayy Bach CNM Letter for School/Work; Forms/questionnaire s 11/06/2024 10:00 AM EST Ancillary Procedure Maternal Medicine - [address] [phone] Encounter for (NT) nuchal translucency scan 10/22/2024 1:00 PM EST Ancillary Procedure Maternal Medicine - [address] [phone] care, subsequent in first trimester 10/22/2024 11:00 AM EST Clinical Support Obstetrics and Gynecology - [address] [phone] care, subsequent in first trimester (Primary Dx); Obesity in ; PCOS (polycystic ovarian syndrome); History of 2 sections; Anxiety and depression; Bipolar 1 disorder ([facility] V24, [facility] V28) 09/25/2024 10:30 AM EST Office Visit Obstetrics and Gynecology - [address] [phone] Shayy Bach CNM Early stage of (Primary Dx); examination or test, positive result; Anxiety and depression; Bipolar 1 disorder (CMS/HCC V24, CMS/HCC V28); History of delivery, currently ; Obesity in from Last 3 Months Surgical History Surgery Date Site/Laterality Comments SECTION, LOW TRANSVERSE x2 APPENDECTOMY POLYPECTOMY 09/05/2023 - 09/04/2024 Medical History Medical History Date Comments Depression Anxiety Bipolar 1 disorder ([facility] V24, [facility] V28) Polycystic ovary syndrome Gingivitis 11/02/2024 Family History [...] care for your loved ones. For example, children's book author or elderly care for an older adult? [...] Name Clin AB 011 Term M CS-LT fam jaquez Complications:Gestational di abetes 015 Term M CS-LT celestev Samia church Sherie corley Current Summary Episode Dates Number of Fetuses Estimated Date of Delivery 10/22/2024 - Present (12/15/2024) 1 05/12/2025 (set by Catherine pool RN [...] Vitals Pregravid Weight Height TWG (As of 12/15/2024) Pregrav id BMI 78.5 kg (173 lb) 1.549 m (61 ) 6.804 kg (15 lb) 32.70 Notes Progress Notes - Routine Pre power - 12/12/2024 - GA:18w3d 12/12/2024 - 18w3d - Rolly Levy CNM OB Visit: Vitals BP: 121/71 Weight: 85.3 kg (188 lb) Assessment Heart Rate: 155 Fundal Height (cm): 20 cm Movement: Present peer health promoter Rishabh # [id number] used for today's encounter 34 y.o. old female at 18w3d. Doing well. Active FM. No LOF/VB/cramping. Her only new concern is her blood sugars. Otherwise complicated by GDMA1 diet controlled but all fasting's have been elevated states related to not sleeping well and stressed. But when asked if she is eating reclamation supervisor hours and she said sometimes she was. We discussed what true fasting levels were. She states she eats dinner at 5 pm and so explained if she is going to lay down to try to sleep around 11 to have a snack before that and then to only have water until the morning fasting BS is taken. We also discussed portions of fruit. Her BP is reviewed and is Normal. Aneuploidy screening reviewed; it is Normal. MSAFP ordered. She does not require a urine drug screen. Signs and symptoms of labor reviewed including reasons to call triage. Problem List reviewed and updated. RTO 4 weeks. 1. Supervision of other high risk pregnancies, second trimester 2. Diet controlled gestational diabetes mellitus (GDM) in second trimester 3. 18 weeks gestation of Rolly Levy CNM on 12/12/2024 at 3:36 PM EDT Progress Notes - Routine Pre power - 11/29/2024 - GA:16w4d 11/29/2024 - 16w4d - Rolly Levy CNM Subjective peer health promoter Mone # [id number] used for today's encounter Debbi Nichols is a 34 y.o. at 16w5d with a working estimated date of delivery of 05/12/2025, by Ultrasound who presents for an initial visit for her gestational diabetes which is currently diet controlled. This is planned. [facility] Glucose Monitoring Flowsheet Before Breakfast Glucose After Breakfast Glucose 11/20/2024 92 mg/dL (AL) 110 mg/dL (AL) 11/21/2024 92 mg/dL (AL) 98 mg/dL (AL) 11/22/2024 92 mg/dL (AL) 101 mg/dL (AL) 11/23/2024 90 mg/dL (AL) 76 mg/dL (AL) 11/24/2024 90 mg/dL (AL) 95 mg/dL (AL) 11/25/2024 92 mg/dL (AL) 116 mg/dL (AL) 11/26/2024 103 mg/dL (AL) 103 mg/dL (AL) After Lunch Glucose After Dinner Glucose 11/20/2024 131 mg/dL (AL) 101 mg/dL (AL) 11/21/2024 108 mg/dL (AL) 120 mg/dL (AL) 11/22/2024 120 mg/dL (AL) 120 mg/dL (AL) 11/23/2024 104 mg/dL (AL) 110 mg/dL (AL) 11/24/2024 130 mg/dL (AL) 120 mg/dL (AL) 11/25/2024 116 mg/dL (AL) 117 mg/dL (AL) 11/26/2024 Her is complicated by: Obesity has [...] mouth 1 (one) time each day. vit,la 33-bysb-vqbgt 27 mg iron- 1 mg tablet Take [...] guidelines. (this will be adjusted by the enterprise account manager specifically for your specific needs) Carbohydrate minimums: [...] monitor wellbeing. Diet and Exercise -referral to school vocational educator and to enterprise account manager placed Glucose Monitoring -glucometer and testing strips [...] 11/13/2024 - GA:14w2d 11/13/2024 - 14w2d - BetiRekha platt MD OB 12 week appt IP: S: [...] the first trimester and how to contact nutrition teacher provider. Discussed the benefits of breast feeding and strongly encouraged to consider this. Counseled regarding the diagnosis of anomalies. She was offered a referral to maternal medicine for nuchal lucency/[place] testing. She already accepted the referral. RTO 4 weeks. The patient does not require anesthesia consult. This patient's VTE risk status is low. [place] Depression Scale: In the Past 7 Days [...] harming myself has occurred to me.: Never [place] Depression Scale Total: 3 [place] SCREENING CHARGE (Clinic Only): 99486 Obesity in Start ASA Diet controlled gestational [...] pport - 10/22/2024 - GA:11w1d 10/22/2024 - w1d - Catherine Hodges RN Debbi Nichols is a 34 y.o. old female at 13w3d. This is [place]. The patient feels happy about the . [...] to the above questions, is this for yazidi reasons? No Do you know what your [...] dilation and curettage, etc? Yes-polypectomy in 2023- Wing Have you had any other surgical procedures? [...] urine drug screen has been ordered. Debbi Naresh Floresgo has also been informed of the laborer chemical processing provider recommendation for first trimester nuchal lucency testing to be performed during her . Debbi Nichols has also been made aware of the time sensitive nature for this testing to be completed. . The patient now has a gestational age of 13w3d. The patient would be due for this testing prior to 14 weeks gestation which would be on 10/26/2023. Ethnicity Based Genetic Testing has been reviewed and the [employer] information sheet has been provided to the [...] Sign Reading Time Taken Comments Blood Pressure 121/71 12/12/2024 2:48 PM EDT Pulse 98 12/12/2024 1:00 PM EDT Temperature - - Respiratory Rate - - Oxygen Saturation - - Inhaled Oxygen Concentration - - Weight 85.3 kg (188 lb) 12/12/2024 2:48 PM EDT Height 154.9 cm (5' 1 ) 11/14/2024 10:45 AM EDT Body Mass Index 35.52 11/14/2024 10:45 AM EDT Plan of Treatment Upcoming Encounters Date Type Department Care Team (Late st Contact Info) Description 12/31/2024 10:00 AM EDT Ancillary Procedure Maternal Medicine - [address] [phone] 01/09/2025 11:15 AM EDT Routine Obstetrics and Gynecology - [address] [phone] Rekha Plummer MD [address] [place] [phone] Health Maintenance Due Date Last Done Comments [...] age to complete this topic Meningococcal B Vaccine Aged Out No l onger eligible based on patient's age to complete [...] test abnormal GTT GESTATIONAL 2 HOUR Routine 5 11:01 AM EST Obesity in PCOS (polycystic [...] 1: 34 PM EST PANORAMA TEST Routine 4:06 PM EST US OB LESS 14 [...] gonorrhoeae molecular study (11/13/2024 2:18 PM EDT) Neisseria gonorrhoeae PCR Negative Negative LAB MOLECULAR DIAGNOSTICS METHOD 11/14/2024 10:29 AM EDT [facility] Chlamydia trachomatis PCR Negative Negative LAB MOLECULAR DIAGNOSTICS METHOD 11/14/2024 10:29 AM EDT [facility] Swab Cervix uteri structure / Unknown Non-blood Collection / Unknown 11/13/2024 2:18 PM EDT 11/13/2024 2:18 PM EDT Rkeha Plummer MD LAB MICROBIOLOGY - GENERAL ORDERABLES Final Result [facility] [address] [place] [address], * Protein and creatinine with ratio, urine (11/13/2024 1:37 PM EDT) Protein, Urine 15 mg/dL LAB CHEMISTRY METHOD 11/13/2024 5:51 PM EDT [facility] Prot/Creat, Ur 0.06 <=0.20 mg/mg creat LAB CHEMISTRY METHOD 11/13/2024 5:51 PM EDT [facility] Creatinine, Urine 231.0 mg/dL LAB CHEMISTRY METHOD 11/13/2024 5:51 PM EDT [facility] Urine Urine specimen obtained by clean catch procedure / Unknown Non-blood Collection / Unknown 11/13/2024 1:37 PM EDT 11/13/2024 1:37 PM EDT us Rekha Plummer MD LAB URINE ORDERABLES Final Result Performing Organization Address [facility] Co de Phone Number [facility] [address] [place] [address], [place] [phone] * Creatinine (11/13/2024 1:37 PM EDT) Creatinine 0.68 0.50 - 1.10 mg/dL LAB CHEMISTRY METHOD 11/13/2024 5:12 PM EDT [facility] eGFR 118 >=60 mL/min/1. 73m2 LAB CHEMISTRY METHOD 11/13/2024 5:12 PM EDT [facility] Comment:Calculation based on the??Chronic Kidney Disease Epidemiology Collaboration (CKD-EPI) equation refit??without adjustment for race. Blood Venous blood specimen / Unknown Venipuncture / Unknown 11/13/2024 1:37 PM EDT 11/13/2024 1:37 PM EDT us Rekha Plummer MD LAB BLOOD ORDERABLES Final Result Performing Organization Address [facility] de Phone Number [facility] [address] [place] [address], [place] [phone] * Alanine aminotransferase (11/13/2024 1:37 PM EDT) ALT (SGPT) 30 10 - 60 unit/L LAB CHEMISTRY METHOD 11/13/2024 5:12 PM EDT [facility] Blood Venous blood specimen / Unknown Venipuncture / Unknown 11/13/2024 1:37 PM EDT 11/13/2024 1:37 PM EDT us Rekha Plummer MD LAB BLOOD ORDERABLES Final Result Performing Organization Address City/[facility] Co de Phone Number [facility] [address] [place] [address], [place] [phone] * Aspartate aminotransferase (11/13/2024 1:37 PM EDT) AST (SGOT) 23 10 - 42 unit/L LAB CHEMISTRY METHOD 11/13/2024 5:12 PM EDT [facility] Blood Venous blood specimen / Unknown Venipuncture / Unknown 11/13/2024 1:37 PM EDT 11/13/2024 1:37 PM EDT us Rekha Plummer MD LAB BLOOD ORDERABLES Final Result Performing Organization Address [facility] Co de Phone Number [facility] [address] [place] [address], [place] [phone] * HPV with reflex genotype (11/13/2024 1:18 PM EDT) [facility] HPV Negative Negative LAB MICROBIOLOGY METHOD 11/14/2024 1:55 PM EDT [facility] Brushing/Spatula Cervix uteri structure / Unknown 11/13/2024 1:18 PM EDT 11/14/2024 5:57 AM EDT us Rekha Plummer MD LAB MOLECULAR DIAGNOSTICS O RDERABLES Final Result Performing Organization Address City/[facility]/ZIP Co de Phone Number [facility] [address] [place] [address], [place] [phone] * Pap smear (11/13/2024 1:18 PM EDT) Interpretation Negative for intraepithelial lesion or malignancy 11/15/2024 9:12 AM EDT [facility] General Categorization Negative 11/15/2024 9:12 AM EDT [facility] Other Findings Shift in hoda suggestive of bacterial vaginosis 11/15/2024 9:12 AM [facility] Specimen Adequacy Satisfactory for evaluation, endocervical/stock sformation zone component present 11/15/2024 9:12 AM [facility] Pap Methodology Liquid Based Pap Test 11/15/2024 9:12 AM [facility] Disclaimer The Pap test is a screening test which carries an inherent false negative rate. These test results should be correlated with the patient's clinical findings and history. This Pap test was processed using an automated screening system. Technical cytopathology services provided by [facility], at [address] [place] [id number] (CLIA # [id number]/Shayan Russ MD, Assembly Stock Supervisor.) 11/15/2024 9:12 AM [facility] Console Pap Interpretation Reported 11/15/2024 9:12 AM [facility] Brushing/Spatula Cervix uteri structure / Unknown 11/13/2024 1:18 PM EDT 11/13/2024 1:18 PM EDT us Rekha Plummer MD LAB CYTOLOGY ORDERABLES Fin al Result [facility] [address] [place] [address], * Horizon 14 (11/13/2024 12:43 PM EDT) Only the most recent of2 resultswithin the time period is included. Blood Venous blood specimen / Unknown us Rekha Plummer MD LAB BLOOD ORDERABLES Final Result * GTT gestational 3 hour (11/09/2024 12:05 PM EST) Glucose, 3 HR Gestational 138 See Comment mg/dL LAB CHEMISTRY METHOD 11/09/2024 5:00 PM EST [facility] Blood Venous blood specimen / Unknown Venipuncture / Unknown 11/09/2024 12:05 PM EST 11/09/2024 12:05 PM EST Narrative [facility] - 11/09/2024 5:00 PM EST Gestational 3 hour GTT Reference Range: Normal: ??Fasting: ?< 95 ??mg/dL ? 60 minute: ?< 180 mg/dL ? 120 minute: ?? < 155 mg/dL ? 180 minute: ?? < 140 mg/dL Rekha Plummer MD LAB BLOOD ORDERABLES Final Result Performing Organization Address [facility]/ZIP Co de Phone Number [facility] [address] [place] [address], * GTT gestational 2 hour (11/09/2024 11:01 AM EST) Glucose, 2 HR Gestational 199 See Comment mg/dL LAB CHEMISTRY METHOD 11/09/2024 5:00 PM EST [facility] Blood Venous blood specimen / Unknown Venipuncture / Unknown 11/09/2024 11:01 AM EST 11/09/2024 11:01 AM EST Rekha Plummer MD LAB BLOOD ORDERABLES Final Result Performing Organization Address [facility]/ZIP Co de Phone Number [facility] [address] [place] [address], [place] [phone] * GTT gestational 1 hour (11/09/2024 9:59 AM EST) Only the most recent of2 resultswithin the time period is included. Glucose, 1 HR Gestational 203 See Comment mg/dL LAB CHEMISTRY METHOD 11/09/2024 5:01 PM EST [facility] Blood Venous blood specimen / Unknown Venipuncture / Unknown 11/09/2024 9:59 AM EST 11/09/2024 9:59 AM EST Rekha Plummer MD LAB BLOOD ORDERABLES Final Result Performing Organization Address [facility]/ZIP Co de Phone Number [facility] [address] [place] [address], [place] [phone] * (ABNORMAL) GTT gestational fasting (11/09/2024 8:56 AM EST) [facility] Signature Glucose, GTT - Fasting 104(H) 70 - 100 mg/dL LAB CHEMISTRY METHOD 11/09/2024 5:00 PM EST [facility] Blood Venous blood specimen / Unknown Venipuncture / Unknown 11/09/2024 8:56 AM EST 11/09/2024 8:56 AM EST Rekha Plummer MD LAB BLOOD ORDERABLES Final Result Performing Organization Address [facility] Co de Phone Number [facility] [address] [place] [address], [place] [phone] * US OB Less 14 Wks Nuchal Measurement (11/06/2024 9:55 AM EST) Anatomical Region Laterality Modality Body Ultrasound 11/06/2024 9:27 AM EST Narrative 11/06/2024 11:00 AM EST OBSTETRICS REPORT ?(Signed Final 11/06/2024 11:00 am) PATIENT INFO: ID #: ? [id number] ? : ??[birth year] (34 yrs)(F) Name: ? DEBBI Jaquez ? Visit Date: 11/06/2024 09:27 am ? KB PERFORMED BY: Attending: ?Radha Jean MD Performed By: ? Janneth Lee RDMS Referred By: ?Rekha Plummer MD Ref. Address: ? [address] [facility] ? [place] ??[address] Location: ? [facility] SERVICE(S) PROVIDED: US < 14 weeks Abdominal Ultrasound ?88908 US Nuchal Translucency ?[address] INDICATIONS: Medication exposure, first trimester ? O09.891 [...] Final Report ?? 11/06/2024 11:00 am Procedure Note Radha Jean MD - 11/06/2024 OBSTETRICS REPORT (Signed Final 11/06/2024 11:00 am) PATIENT INFO: ID #: [id number] : [birth year] (34 yrs)(F) Name: DEBBI Jaquez Visit Date: 11/06/2024 09:27 am KB PERFORMED BY: Attending: Radha Jean MD Performed By: Janneth Lee [facility] Referred By: Rekha Plummer MD Ref. Address: [address] [place] [address] Location: [facility] SERVICE(S) PROVIDED: US < 14 weeks Abdominal Ultrasound [address] US Nuchal Translucency [address] INDICATIONS: Medication exposure, first trimester O09.891 Obesity [...] Electronically Signed Final Report 11/06/2024 11:00 am us Rekha Plummer MD IMG OB US PROCEDURES Final Result * US OB Less 14 Wks Single or First Gestation (11/06/2024 9:55 AM EST) Only the most recent of2 resultswithin the time period is included. Anatomical Region Laterality Modality Body Ultrasound 11/06/2024 9:27 AM EST Narrative 11/06/2024 11:00 AM EST OBSTETRICS REPORT ?(Signed Final 11/06/2024 11:00 am) PATIENT INFO: ID #: ? [id number] ? : ??[birth year] (34 yrs)(F) Name: ? DEBBI Jaquez ? Visit Date: 11/06/2024 09:27 am ? KB PERFORMED BY: Attending: ?Radha Jean MD Performed By: ? Janneth Lee [facility] Referred By: ?Rekha Plummer MD Ref. Address: ? [address] [facility] ? [place] ??[address] Location: ? [facility] SERVICE(S) PROVIDED: US < 14 weeks Abdominal Ultrasound ?63527 Nuchal Translucency ?61670 INDICATIONS: Medication exposure, first trimester ? O09.891 [...] Final Report ?? 11/06/2024 11:00 am Procedure Note Radha Jean MD - 11/06/2024 OBSTETRICS REPORT (Signed Final 11/06/2024 11:00 am) PATIENT INFO: ID #: [id number] : [birth year] (34 yrs)(F) Name: DEBBI Jaquez Visit Date: 11/06/2024 09:27 am KB PERFORMED BY: Attending: Radha Jean MD Performed By: Janneth Lee [facility] Referred By: Rekha Plummer MD Ref. Address: [address] [place] [address] Location: [facility] SERVICE(S) PROVIDED: US < 14 weeks Abdominal Ultrasound 120[address] US Nuchal Translucency [address] INDICATIONS: Medication exposure, first trimester O09.891 Obesity [...] 04/26/25 Best: 13w 2d Det. By: Jewel Jaqeuz JOHN: 05/12/25 (10/22/24) 1ST TRIMESTER GENETIC SONOGRAM [...] Electronically Signed Final Report 11/06/2024 11:00 am us Rekha Plummer MD IMG OB US PROCEDURES Final Result * Panorama test (10/30/2024 4:06 PM EST) Blood Venous blood specimen / Unknown us Rekha Plummer MD LAB BLOOD ORDERABLES Final Result * Hepatitis C antibody (10/22/2024 12:59 PM EST) Pathologist [facility] Hepatitis C Antibody Negative Negative LAB CHEMISTRY METHOD 10/22/2024 5:34 PM EST [facility] Blood Venous blood specimen / Unknown Venipuncture / Unknown 10/22/2024 12:59 PM EST 10/22/2024 12:59 PM EST us Rekha Plummer MD LAB BLOOD ORDERABLES Final Result [facility] [address] [place] [address], [place] [phone] * HIV 1,2 antibody, p24 antigen with reflex to differentiation (10/22/2024 12:59 PM EST) HIV Combo AB/AG Negative Negative LAB CHEMISTRY METHOD 10/22/2024 5:34 PM EST [facility] Blood Venous blood specimen / Unknown Venipuncture / Unknown 10/22/2024 12:59 PM EST 10/22/2024 12:59 PM EST Narrative [facility] - 10/22/2024 5:34 PM EST [...] BLOOD ORDERABLES Final Result Performing Organization Address City/[facility]/ZIP Co de Phone Number [facility] [address] [place] [address], [place] [phone] * Hepatitis B surface antigen with reflex to confirmation (10/22/2024 12:59 PM EST) Pathologist [facility] Hepatitis B Surface Ag Negative Negative LAB CHEMISTRY METHOD 10/22/2024 5:06 PM EST [facility] Blood Venous blood specimen / Unknown Venipuncture / Unknown 10/22/2024 12:59 PM EST 10/22/2024 12:59 PM EST Narrative [facility] - 10/22/2024 5:06 PM EST Over the counter supplements containing high doses of biotin may interfere with this assay. ??If interference is suspected, patients shoud be retested after refraining from biotin supplements for 72 hours. us Rekha Plummer MD LAB BLOOD ORDERABLES Final Result Performing Organization Address City/[facility]/ZIP Co de Phone Number [facility] [address] [place] [address], [place] [phone] * Treponema pallidum antibody with reflex to RPR and particle agglutination (10/22/2024 12:59 PM EST) T. Pallidum Antibodies Negative Negative LAB CHEMISTRY METHOD 10/22/2024 6:03 PM EST [facility] Blood Venous blood specimen / Unknown Venipuncture / Unknown 10/22/2024 12:59 PM EST 10/22/2024 12:59 PM EST Rekha Plummer MD LAB BLOOD ORDERABLES Final Result Performing Organization Address [facility]/ZIP Co de Phone Number [facility] [address] [place] [address], [place] [phone] * Venipuncture charge (10/22/2024 12:59 PM EST) Pathologist [facility] Extra Tube Hold for add-ons. 10/22/2024 2:01 PM EST [facility] ([place]) Comment:Auto resulted. Blood Venous blood specimen / Unknown Venipuncture / Unknown 10/22/2024 12:59 PM EST 10/22/2024 12:59 PM EST us Rekha Plummer MD LAB BLOOD ORDERABLES Final Result Performing Organization Address [facility]/ZIP Co de Phone Number [facility] ([place]) [place], [place] * Drug abuse screen expanded with reflex confirmation, urine (10/22/2024 12:59 PM EST) Amphetamine Screen, Ur Negative Negative LAB CHEMISTRY METHOD 10/22/2024 3:02 PM EST [facility] Comment:Certain OTC medicati ons containing ephedrine, phenylephrine, pseudoephedrine and phenylpropanolamine can cause false positive results. Barbiturate Screen, Ur Negative Negative LAB CHEMISTRY METHOD 10/22/2024 3:02 PM EST [facility] Benzodiazepine Screen, Ur Negative Negative LAB CHEMISTRY METHOD 10/22/2024 3:02 PM EST [facility] Cocaine Screen, Ur Negative Negative LAB CHEMISTRY METHOD 10/22/2024 3:02 PM [facility] Opiate Screen, Ur Negative Negative LAB CHEMISTRY METHOD 10/22/2024 3:02 PM [facility] Cannabinoid (THC) Screen, Ur Negative Negative LAB CHEMISTRY METHOD 10/22/2024 3:02 PM EST [facility] Comment:Specimens from patie nts taking pantoprazole sodium (Protonix) have been shown to produce false positive results. Fentanyl, Ur Negative Negative LAB CHEMISTRY METHOD 10/22/2024 3:02 PM EST [facility] Oxycodone Screen, Ur Negative Negative LAB CHEMISTRY METHOD 10/22/2024 3:02 PM [facility] Urine Urine specimen obtained by clean catch procedure / Unknown Non-blood Collection / Unknown 10/22/2024 12:59 PM EST 10/22/2024 12:59 PM EST [facility] - 10/22/2024 3:02 PM EST Assay [...] MD LAB URINE ORDERABLES Final Result [facility] [address] [place] [address], * (ABNORMAL) CBC auto differential (10/22/2024 12:59 PM EST) [facility] WBC 8.7 4.8 - 10.8 K/mcL LAB HEMETOLOGY METHOD 10/22/2024 2:05 PM [facility] RBC 4.40 3.80 - 4.80 M/mcL LAB HEMETOLOGY METHOD 10/22/2024 2:05 PM [facility] Hemoglobin 13.5 11.5 - 16.0 g/dL LAB HEMETOLOGY METHOD 10/22/2024 2:05 PM [facility] Hematocrit 41.3 35.0 - 47.0 % LAB HEMETOLOGY METHOD 10/22/2024 2:05 PM [facility] MCV 93.9 79.0 - 98.0 FL LAB HEMETOLOGY METHOD 10/22/2024 2:05 PM [facility] MCH 30.7 27.0 - 32.0 pcg LAB HEMETOLOGY METHOD 10/22/2024 2:05 PM [facility] MCHC 32.7 32.0 - 37.0 g/dL LAB HEMETOLOGY METHOD 10/22/2024 2:05 PM [facility] RDW 13.6 11.0 - 15.0 % LAB HEMETOLOGY METHOD 10/22/2024 2:05 PM [facility] Platelets 233 130 - 400 K/mcL LAB HEMETOLOGY METHOD 10/22/2024 2:05 PM [facility] MPV 11.0 7.0 - 11.0 FL LAB HEMETOLOGY METHOD 10/22/2024 2:05 PM [facility] NRBC 0.0 <1.0 % LAB HEMETOLOGY METHOD 10/22/2024 2:05 PM [facility] NRBC Absolute 0.00 <0.10 K/mcL LAB HEMETOLOGY METHOD 10/22/2024 2:05 PM [facility] Neutrophils Relative 74.7 % LAB HEMETOLOGY METHOD 10/22/2024 2:05 PM [facility] Lymphocytes Relative 16.8 % LAB HEMETOLOGY METHOD 10/22/2024 2:05 PM [facility] Monocytes Relative 6.5 % LAB HEMETOLOGY METHOD 10/22/2024 2:05 PM [facility] Eosinophils Relative 1.0 % LAB HEMETOLOGY METHOD 10/22/2024 2:05 PM [facility] Basophils Relative 0.3 % LAB HEMETOLOGY METHOD 10/22/2024 2:05 PM [facility] Immature Granulocytes Relative 0.7 % LAB HEMETOLOGY METHOD 10/22/2024 2:05 PM [facility] Neutrophils Absolute 6.50 1.50 - 7.00 K/mcL LAB HEMETOLOGY METHOD 10/22/2024 2:05 PM [facility] Lymphocytes Absolute 1.46 1.00 - 5.00 K/mcL LAB HEMETOLOGY METHOD 10/22/2024 2:05 PM [facility] Monocytes Absolute 0.57 0.20 - 1.00 K/mcL LAB HEMETOLOGY METHOD 10/22/2024 2:05 PM [facility] Eosinophils Absolute 0.09 0.00 - 0.50 K/mcL LAB HEMETOLOGY METHOD 10/22/2024 2:05 PM [facility] Basophils Absolute 0.03 0.00 - 0.20 K/mcL LAB HEMETOLOGY METHOD 10/22/2024 2:05 PM [facility] Immature Granulocytes Absolute 0.06(H) 0.00 - 0.03 K/mcL LAB HEMETOLOGY METHOD 10/22/2024 2:05 PM EST [facility] Blood Venous blood specimen / Unknown Venipuncture / Unknown 10/22/2024 12:59 PM EST 10/22/2024 12:59 PM EST us Rekha Plummer MD LAB BLOOD ORDERABLES Final Result Performing Organization Address [facility]/ZIP Co de Phone Number [facility] [address] [place] [address], [place] [phone] * Rubella antibody IgG (10/22/2024 12:59 PM EST) Rubella IgG Quant 55.0 >=10.0 I Unit/mL LAB CHEMISTRY METHOD 10/22/2024 5:05 PM EST [facility] Rubella IgG Antibody Interp Positive Positive LAB CHEMISTRY METHOD 10/22/2024 5:05 PM EST [facility] Blood Venous blood specimen / Unknown Venipuncture / Unknown 10/22/2024 12:59 PM EST 10/22/2024 12:59 PM EST us Rekha Plummer MD LAB BLOOD ORDERABLES Final Result Performing Organization Address City/[facility]/ZIP Co de Phone Number [facility] [address] [place] [address], [place] [phone] * Type and screen (10/22/2024 12:59 PM EST) ABO Group O 10/22/2024 3:37 PM EST [facility] Rh Type Positive 10/22/2024 3:37 PM EST [facility] Antibody Screen Negative 10/22/2024 3:37 PM EST [facility] Blood Venous blood specimen / Unknown Venipuncture / Unknown 10/22/2024 12:59 PM EST 10/22/2024 12:59 PM EST us Rekha Plummer MD LAB BLOOD BANK TEST ORDERAB LES Final Result Performing Organization Address [facility] Co de Phone Number [facility] [address] [place] [address], [place] [phone] * Culture urine (10/22/2024 12:59 PM EST) [facility] Culture, Urine >100,000 CFU/mL Mixed bacterial morphotypes present suggestive of possible contamination during collection. Suggest appropriate recollection if clinically indicated. 10/24/2024 9:53 AM EST [facility] Urine Urine specimen obtained by clean catch procedure / Unknown Non-blood Collection / Unknown 10/22/2024 12:59 PM EST 10/22/2024 12:59 PM EST us Rekha Plummer MD LAB MICROBIOLOGY - GENERAL ORDERABLES Final Result Performing Organization Address [facility] de Phone Number [facility] [address] [place] [address], [place] [phone] * (ABNORMAL) Varicella zoster antibody IgG (10/22/2024 12:59 PM EST) [facility] Varicella IgG Negative( A) Positive LAB CHEMISTRY METHOD 10/23/2024 8:55 AM EST [facility] Varicella Zoster IgG 0.05(L) >=1.00 S/CO LAB CHEMISTRY METHOD 10/23/2024 8:55 AM EST [facility] Blood Venous blood specimen / Unknown Venipuncture / Unknown 10/22/2024 12:59 PM EST 10/22/2024 12:59 PM EST Narrative [facility] - 10/23/2024 8:55 AM EST Interpretation >= 1.00 S/CO is considered to be consistent with Immunity us Rekha Plummer MD LAB BLOOD ORDERABLES Final Result Performing Organization Address [facility] Co de Phone Number [facility] [address] [place] [address], [place] [phone] * Hemoglobin A1c (10/22/2024 12:59 PM EST) [facility] Hemoglobin A1C 5.4 <6.5 % LAB CHEMISTRY METHOD 10/22/2024 9:18 PM EST [facility] Mean Bld Glu Estim. 108 mg/dL LAB CHEMISTRY METHOD 10/22/2024 9:18 PM EST [facility] Blood Venous blood specimen / Unknown Venipuncture / Unknown 10/22/2024 12:59 PM EST 10/22/2024 12:59 PM EST Rekha Plummer MD LAB BLOOD ORDERABLES Final Result [facility] [address] [place] [address], [place] [phone] * (ABNORMAL) POC , urine manually resulted (09/25/2024 10:48 AM EST) [facility] HCG, Ur POC Positive(A ) Negative POC hCG Int QC Pass? Yes Yes Urine Urine specimen obtained by clean catch procedure / Unknown 09/25/2024 10:48 AM EST Shayy Bach CNM POINT OF CARE TEST ENTER/EDIT ORDERABLES Final Result from Last 3 Months Insurance [facility] [employer] Care Teams Blade Grader Operator Relationship Specialty Start Date End Date Sophia Simpson [address] [place] [phone] PCP - General 09/24/24
--- OUTSIDE RECORDS SUMMARY | 2024-12-15 19:28 | XMS_ITS | Encounter Summary ---
Author Organization [employer] Address [address] [place] [address] Care Team Providers Care Legal Recovery Specialist Name Role Phone Sophia Simpson Primary Care Provider Reason for Visit * Reason Onset Date Comments GDM 12/10/2024 Encounter Details Date Type Department Care Team ([facility] st Contact Info) Description 12/10/2024 Telephone Obstetrics and Gynecology - [address] [place] [phone] Naye Carrizales, RN GDM Social History Tobacco [...] care for your loved ones. For example, vocational childcare teacher or elderly care for an older adult? [...] Progress Notes * Naye Carrizales RN - 12/10/2024 12:44 PM EDT Images from the original note were not included. sent this message (as she had gotten flowsheet). MD Naye Steinberg, RN Please let patient know that her fastings are steadily elevated. It would be ideal for her to get aprotein rich snack and take a walk after dinner to help with this. If we cannot get controlled by next sugar reading, I would recommend she start Lantus at night and she will need to be transferred to [facility]. Thanks, * Naye Carrizales RN - 12/10/2024 10:21 AM EDT Images from the original note were not included. Rolly, please review. You are seeing this patient on Tuesday for routine OB visit. Blood sugars 12/04-12/10 OB 12/12 [place] 12/31 From pt when asked about diet: Alissa Boss ssb [facility] Ob[facility] Clinical Pool (supporting You)34 minutes ago (11:07 AM) Honestly I'm so stressed full this days and in the middle in the to hours sometimes I don't eat nothing and only one day I don't sleep sufficient MyChart Glucose Monitoring Flowsheet Before Breakfast Glucose After Breakfast Glucose 12/04/2024 12/05/2024 105 mg/dL (DC) 103 mg/dL (DC) 12/06/2024 105 mg/dL (DC) 114 mg/dL (DC) 12/07/2024 97 mg/dL (DC) 114 mg/dL (DC) 12/08/2024 98 mg/dL (DC) 110 mg/dL (DC) 12/09/2024 97 mg/dL (DC) 100 mg/dL (DC) 12/10/2024 99 mg/dL (DC) After Lunch Glucose After Dinner Glucose 12/04/2024 111 mg/dL (DC) 121 mg/dL (DC) 12/05/2024 130 mg/dL (DC) 125 mg/dL (DC) 12/06/2024 120 mg/dL (DC) 119 mg/dL (DC) 12/07/2024 121 mg/dL (DC) 115 mg/dL (DC) 12/08/2024 122 mg/dL (DC) 114 mg/dL (DC) 12/09/2024 106 mg/dL (DC) 112 mg/dL (DC) 12/10/2024 Legend: (DC) Patient-reported documented in this encounter Plan of Treatment Upcoming Encounters Date Type Department Care Team (Late st Contact Info) Description 12/31/2024 10:00 AM EDT Ancillary Procedure Maternal Medicine - [address] [phone] 01/09/2025 11:15 AM EDT Routine Obstetrics and Gynecology - [address] [phone] Rekha Plummer MD [address] [place] [address] documented as of this encounter Visit Diagnoses Not on filedocumented in this encounter Additional Health Concerns Assessment Noted Time PHQ-9 Depression Total Score: 0 12/06/19 3:50 PM EDT documented as of this encounter Care Teams Legal Recovery Specialist Relationship Specialty Start Date End Date Sophia Simpson [address] [place] [address] PCP - General 09/24/24 documented as of this encounter
--- NOTE | 2024-12-15 19:33 | PC.NURSE ---
pt a&ox4, respirations even and unlabored. pt reports she had noted some spotting on toilet paper today. reports she is 5 months , last felt movement in the am. pt reports hx of miscarriage. pt denies abdominal pain but reports flutters . heart tones obtained by this rn at bedside, 150-155 bpm in the lrq.
[2024-12-15 19:35] LABS: Alanine Aminotransferase 27 U/L (0-31); Albumin Level 3.9 g/dL (3.5-5.0); Alkaline Phosphatase 66 U/L (39-117); Anion Gap 14 (12-20); Aspartate Amino Transferase 25 U/L (5-31); Bilirubin Total 0.3 mg/dL (0.0-1.0); Blood Urea Nitrogen 8 mg/dL (9-16); Calcium 9.5 mg/dL (8.4-10.2); Carbon Dioxide 22 mmol/L (22-29); Chloride 107 mmol/L (96-108); Creatinine Clr Calc Pharmacy 94.2; Estimated Glomerular Filt Rate > 60; Glucose Random 90 mg/dL (60-115); Potassium 4.1 mmol/L (3.3-5.1); Sodium 139 mmol/L (135-145); Total Protein 6.9 g/dL (6.5-8.0)
--- NOTE | 2024-12-15 21:09 | PC.NURSE ---
pt ambulatory to bathroom with steady gait, urine sample obtained.
[2024-12-15 21:10] LABS: Appearance Urine Clear; Color Urine Yellow; Glucose Urine UA Negative (Negative); Leukocyte Esterase Urine Small (1+) (Negative); Nitrite Urine Negative (Negative); PH 7.5 (5.0-9.0); Specific Gravity - Urine 1.015 (1.005-1.025); UMIC TRIGGER UACC YES; Urine Blood Moderate (2+) (Negative); Urine Ketones 15 mg/dL (Negative); Urine Protein Negative (Neg-Trace)
[2024-12-15 21:21] LABS: Bacteria Urine 1+ (None Seen); Hyaline Casts Urine 0-2 /LPF (0-2); RBC Urine 0-2 /HPF (0-2); UACC Culture Trigger YES; WBC Urine 0-5 /HPF (0-5)
[2024-12-15 21:42] VITALS: BP 131/78; PULSE 84; RESP 14; TEMP 36.4; O2SAT 99
[2024-12-15 21:43] VITALS: BP 131/78; PULSE 84; RESP 14; TEMP 36.4; O2SAT 99
== END 2024-12-15 21:44 | disposition home or self-care (01) ==
PROVIDERS: Registered Nurse Emergency; Emergency Provider Internal Medicine
DX: O26.92 Pregnancy related conditions, unspecified, second trimester (principal); Z3A.20 20 weeks gestation of pregnancy; Z79.899 Other long term (current) drug therapy
CPT/HCPCS: 36415; 76815; 80053; 81001; 85025; 86900; 86901; 87086; 87147; 99284

== ENCOUNTER → 2024-12-15 19:05 | Outpatient (BNV) | payer OTHER, SELFPAY | PROVIDERS: Visit Provider Radiology Diagnostic Radiology | DX: N93.9 Abnormal uterine and vaginal bleeding, unspecified (principal); Z3A.20 20 weeks gestation of pregnancy | CPT/HCPCS: 76815 ==

== ENCOUNTER 2024-12-16 18:50 | Emergency (ER) | payer OTHER, SELFPAY ==
--- NOTE | 2024-12-16 18:53 | ED_ITS ---
HPI - General Adult General Chief complaint: Urogenital-Female Stated complaint: blood in urine was here yesterday Time Seen by Provider: 12/16/24 21:40 Source: patient Mode of arrival: ambulatory Limitations: no limitations History of Present Illness ED Provider: Dr. Gary Latif HPI narrative: 34-year-old female A1, JOHN 05/12/2025, 19 weeks and 1 day who presents emergency department for of blood noted on the toilet paper when she wipes herself after urinating. The patient was seen in the emergency department yesterday, 12/15/2024 with similar presentation. Yesterday her laboratory evaluation was unremarkable and she had an OB ultrasound which revealed a single intrauterine in the breech position with no findings of placental abruption and normal movement was identified. Patient states that today after urinating and she wiped herself she noted small amount of blood on the toilet paper and also a small blood clot. She has had urinary frequency but no dysuria. She denied abdominal pain, nausea, vomiting. She denied fever, chills, chest pain or shortness of breath. Related Data Home Medications ?Medication ?Instructions ?Recorded ?Confirmed blood sugar diagnostic (FreeStyle #10 ea 12/06/24 12/06/24 Lite Strips) blood-glucose meter (FreeStyle #1 ea 12/06/24 12/06/24 [place] Lite kit) cariprazine 1.5 mg capsule mg PO DAILY 12/06/24 12/06/24 (Vraylar) cholecalciferol (vitamin D3) 125 125 mcg PO DAILY 12/06/24 12/06/24 mcg (5,000 unit) tablet lamotrigine 25 mg tablet mg PO DAILY 12/06/24 12/06/24 lancets 33 gauge (TRUEplus Lancets) #100 ea 12/06/24 12/06/24 vitamin with calcium tab PO DAILY 12/06/24 12/06/24 no.72-iron 27 mg-folic acid 1 mg tablet ( Vitamins Plus Low Iron) promethazine 25 mg tablet mg PO BID 12/06/24 12/06/24 Previous Rx's ?Medication ?Instructions ?Recorded cephalexin 500 mg capsule 500 mg PO TID 5 days #15 caps 12/16/24 Allergies Allergy/AdvReac Type Severity Reaction Status Date / Time acetaminophen [From Tylenol] Allergy Severe Anaphylaxis Verified 12/16/24 18:54 Review of Systems 2 Review of Systems: Yes all other systems are reviewed and are negative [facility] Past Medical History Medical History Bipolar disorder Insomnia Anxiety Depression Surgical History Status post cervical polyp removal Family History Family History Mother HTN (hypertension) Father Diabetes Maternal Grandmother Uterus cancer Maternal Aunt Uterus cancer Social History Social History Household Members: Children Housing: House Alcohol intake: never Patient Tobacco Use Status: Never used Tobacco e-Cigarette/Vaping Use: Never Used Advance Directives: No Advance Directives Information Provided: Yes Do you have a plan to hurt others: No Plan service: No Current occupational status: student Sexual orientation: Straight/Heterosexual Gender identity: Female Cognitive needs: No Hearing needs: No Vision needs: No Physical Exam ED Vital Signs: Vital Signs - 24 hr 12/16/24 18:54 12/16/24 20:06 12/16/24 22:44 Temperature 98.5 F 98.4 F Pulse Rate 92 91 Respiratory Rate 18 18 Blood Pressure 148/80 H 115/72 128/83 Pulse Oximetry 100 99 98 Oxygen Delivery Method Room Air Room Air Room Air 12/16/24 22:53 Temperature 98.4 F Pulse Rate 91 Respiratory Rate 18 Blood Pressure 128/83 Pulse Oximetry 98 Oxygen Delivery Method Room Air BMI result Body Mass Index 33.9 Initial vital signs did reveal an elevated blood pressure of 148/80 however repeat blood pressures were normal. Exam: General: Awake, alert in no distress Head: Normocephalic, atraumatic EENT: PERRL, Lids normal, sclera normal, conjunctiva normal, nose normal , ears normal, throat without erythema or exudates Neck: Supple, no adenopathy Lung: breath sounds symmetric, no wheezing, rales or rhonchi Chest: symmetric movement, nontender Heart: regular rate and rhythm, normal S1, S2 no murmurs or rubs Abdomen: soft, gravid uterus, nontender, normoactive bowel sounds, no rebound, no voluntary or involuntary guarding Back: no vertebral tenderness, no CVAT Extremities: no deformities, moves all extremities symmetrically Neuro: Awake, alert, oriented, normal speech, cranial nerves intact, moves all extremities symmetrically Psych: Pleasant, cooperative Course Course Course Narrative: This is a rapid medical exam performed by Maggy Fontenot NP: Additional HPI, ROS, PE not included below will be deferred to primary provider. Patient is a 34-year-old A1 female 5 mos gestation presenting to the emergency department with complaint of vaginal bleeding with clot after going to the bathroom prior to arrival. Seen here yesterday for light pink noted on toilet paper after wiping, had normal U/S, discharged home. Getting OB care at [facility] in [place]. Plan: labs, FHR Medications Administered Discontinued Medications Generic Name Dose Route Start Last Admin Trade Name Freq PRN Reason Stop Dose Admin Cephalexin HCl 500 mg 12/16/24 22:41 12/16/24 22:51 Cephalexin 500 Mg Capsule PO 12/16/24 22:42 500 mg ONCE ONE Administration Medical Decision Making Medical Decision Making [facility] Narrative: 34-year-old female A1, JOHN 05/12/2025, 19 weeks and 1 day who presents emergency department for of blood noted on the toilet paper when she wipes herself after urinating. Patient was seen yesterday in the emergency department for similar complaint and had a negative workup including a OB ultrasound which revealed no significant findings, she did have a single intrauterine . Vital signs initially revealed an elevated blood pressure but then repeat blood pressures were normal. Physical examination revealed gravid uterus but no abdominal tenderness. Differential diagnosis: ?Includes but is not limited to urinary tract infection, placental abruption, cervical bleeding, anemia, electrolyte abnormalities Course: My interpretation patient's laboratory evaluation is as follows: CBC was normal. CMP was normal. Blood type was O positive. Urinalysis revealed positive blood, positive nitrates, negative leukocyte esterase. Microscopic revealed 6-10 RBCs, 6-10 WBCs, 6-10 squamous cells, 1+ bacteria. Quantitative beta-hCG was 24,031 At this time I suspect the patient may have a urinary tract infection which is causing her symptoms. I did discuss this with the patient. Patient was given cephalexin 500 mg orally and a prescription for cephalexin 500 mg 3 times a day for 5 days to treated for possible urinary tract infection. I did discuss vaginal bleeding in in the possibility of a miscarriage with her as well. At this time I do not think that she was preeclampsia. The patient was advised to follow-up with her OBGYN at [facility] this week for re- evaluation. I did tell her that at 20 weeks she has a viable and that she should go to [facility] if she has any further bleeding or abdominal pain since we do not have OBGYN capabilities here at this facility. Patient did understand this discussion she was discharged home. Admission/Observation Consideration of admission/observation: Escalation of care including admission/observation considered (Yes) Lab Data MDM Lab Attestation statement: I reviewed the patient's lab results. 12/16/24 19:33 12/16/24 19:33 Labs: Lab Results 12/16/24 12/16/24 Range/Units 19:33 20:05 WBC 9.1 (4.8-10.8) X10*3/uL RBC 4.13 L (4.20-5.50) X10*6/uL Hgb 13.0 (12.0-16.0) g/dl Hct 38.5 (37.0-47.0) % MCV 93.2 (80.0-98.0) fL MCH 31.5 (27.0-33.0) pg MCHC 33.8 (31.0-35.0) g/dl RDW 13.1 (11.0-16.0) % Plt Count 209 (160-400) X10*3/uL MPV 10.6 (9.4-12.3) fL Immature Gran % (Auto) 0.4 (0.0-0.4) % Neut % (Auto) 71.6 (45-73) % Lymph % (Auto) 17.6 L (20-40) % [place] % (Auto) 8.4 (2-11) % Eos % (Auto) 1.7 (0-4) % Baso % (Auto) 0.3 (0-2) % Lymph # (Auto) 1.6 (1.2-4.9) X10*3/uL [place] # (Auto) 0.8 (0.1-1.2) X10*3/uL Eos # (Auto) 0.2 (0.0-0.4) X10*3/uL Baso # (Auto) 0.0 (0.0-0.2) X10*3/uL Abs Immat Gran (auto) 0.04 H (0.00-0.03) X10*3/uL Absolute Neuts (auto) 6.5 (2.0-8.3) x10*3/uL Absolute Nucleated RBC 0.000 (0.0-0.012) X10*3/uL Nucleated RBC % (auto) 0.0 (0.0-0.2) /100WBC Sodium 138 (135-145) mmol/L Potassium 4.1 (3.3-5.1) mmol/L Chloride 108 (96-108) mmol/L Carbon Dioxide 22 (22-29) mmol/L Anion Gap 12 (12-20) BUN 9 (9-16) mg/dL Creatinine 0.77 (0.5-1.4) mg/dL Estim Creat Clear Calc 104.4 Estimated GFR > 60 Random Glucose 101 (60-115) mg/dL Calcium 9.3 (8.4-10.2) mg/dL Total Bilirubin 0.2 (0.0-1.0) mg/dL AST 22 (5-31) U/L ALT 20 (0-31) U/L Alkaline Phosphatase 60 (39-117) U/L Total Protein 6.5 (6.5-8.0) g/dL Albumin 3.6 (3.5-5.0) g/dL Beta HCG, Quant 49874 mIU/mL Urine Color Yellow Urine Appearance Clear Urine pH 7.5 (5.0-9.0) Ur Specific [place] 1.010 (1.005-1.025) Urine Protein Negative (Neg-Trace) mg/dL Urine Glucose (UA) Negative (Negative) mg/dL Urine Ketones Negative (Negative) mg/dL Urine Blood Moderate (2+) H (Negative) Urine Nitrite Negative (Negative) Ur Leukocyte Esterase Trace H (Negative) Urine RBC 6-10 H (0-2) /HPF Urine WBC 6-10 (0-5) /HPF Ur Squamous Epith Cells 6-10 (0-2) /HPF Urine Bacteria 1+ (None Seen) Hyaline Casts 0-2 (0-2) /LPF Prescription Management I considered prescription management with: Antibiotic (Cephalexin 500 mg q.i.d. x5 days) Chronic Conditions Patient?s care impacted by: Other () Discharge Plan Discharge Clinical Impression: Spotting affecting , Urinary tract infection Patient Disposition: Home, Self-Care Instructions: Urinary Tract Infection in (ED) Additional Instructions: Your blood work was unremarkable. Your quantitative beta-hCG (blood test) was 24,031 which is normal for your at this stage. Your blood type is O-positive. At this time I am concerned that maybe your bleeding is caused by a urine infection therefore I am treating you with an antibiotic called Keflex (cephalexin). Take Keflex (cephalexin) 500 mg pills, 1 pill 3 times a day for 5 days. Your ultrasound from yesterday did not reveal a cause for your bleeding which is reassuring. I want you to follow-up with your OBGYN within 1 week. If you have any worsening of your symptoms I want you to go to [facility] where you are going to deliver your baby to be seen by the OBGYN at their facility. We do not have OBGYN physicians the deliver baby's at this hospital. Follow-up with your doctor in 2 days. Please return to the emergency department if your symptoms get worse or if you develop any symptoms that are concerning to you. Please review your ultrasound result with your OBGYN doctor when you were evaluated by them next week. US OB 1st trimester transabdominal Comparison: None Findings: Single living intrauterine gestation. heart rate 167 beats per minute. Breech presentation. No findings of placental abruption or placenta previa. Normal KELLY. Ovaries normal. IMPRESSION: Single intrauterine in breech position with normal KELLY and no findings of placental abruption. Normal movement identified. This document has been electronically signed by: Antonio Aleman MD on 12/15/2024 19:37:30 Dictated By: Antonio Aleman MD Prescriptions: New cephalexin 500 mg capsule 500 mg PO TID 5 Days Qty: 15 0RF No Action Vitamin Plus Low Iron 27 mg iron- 1 mg tablet PO DAILY promethazine 25 mg tablet PO BID (DME) lancets [TRUEplus Lancets] 33 gauge misc See Rx Instructions .ROUTE .MEDSUPPLY Qty: 100 Rx Instructions: As directed (DME) FreeStyle Lite Strips Strip See Rx Instructions .ROUTE 3XD Qty: 10 Rx Instructions: As directed (DME) blood-glucose meter [FreeStyle [place] Lite] Kit See Rx Instructions .ROUTE .MEDSUPPLY Qty: 1 Rx Instructions: As directed lamotrigine 25 mg tablet PO DAILY Vraylar 1.5 mg capsule PO DAILY cholecalciferol (vitamin D3) 125 mcg (5,000 unit) tablet 125 mcg PO DAILY Interventions: ED Discharge Assessment Last Done: 12/16/24 22:53 Discharge Date/Time: 12/16/24 22:54 Print Language: Amharic
[2024-12-16 18:54] VITALS: BP 148/80; O2SAT 100; BMI 33.9
--- OUTSIDE RECORDS SUMMARY | 2024-12-16 19:37 | XMS_ITS | Encounter Summary ---
Author Organization [facility] Address [address] [place] [address] Care Team Providers Care Team Physician Name Role Phone Sophia Simpson Primary Care Provider Reason for Visit * Reason Onset Date Comments GDM 12/10/2024 Encounter Details Date Type Department Care Team ([facility] st Contact Info) Description 12/10/2024 Telephone Obstetrics [facility]necology - [address] [place] [id number] Naye Carrizales, RN GDM Social History Tobacco [...] care for your loved ones. For example, child health associate or elderly care for an older adult? [...] about diet: Alissa Boss ssb [facility] Clinical Pool (supporting You)34 minutes ago (11:07 AM) Honestly I'm so stressed full this days and in the middle in the to hours sometimes I don't eat nothing and only one day I don't sleep sufficient MyChart Glucose Monitoring Flowsheet Before Breakfast Glucose After Breakfast Glucose 12/04/2024 12/05/2024 105 mg/dL (UT) 103 mg/dL (UT) 12/06/2024 105 mg/dL (UT) 114 mg/dL (UT) 12/07/2024 97 mg/dL (UT) 114 mg/dL (UT) 12/08/2024 98 mg/dL (UT) 110 mg/dL (UT) 12/09/2024 97 mg/dL (UT) 100 mg/dL (UT) 12/10/2024 99 mg/dL (UT) After Lunch Glucose After Dinner Glucose 12/04/2024 111 mg/dL (UT) 121 mg/dL (UT) 12/05/2024 130 mg/dL (UT) 125 mg/dL (UT) 12/06/2024 120 mg/dL (UT) 119 mg/dL (UT) 12/07/2024 121 mg/dL (UT) 115 mg/dL (UT) 12/08/2024 122 mg/dL (UT) 114 mg/dL (UT) 12/09/2024 106 mg/dL (UT) 112 mg/dL (UT) 12/10/2024 Legend: (UT) Patient-reported documented in this encounter Plan of Treatment Upcoming Encounters Date Type Department Care Team (Late st Contact Info) Description 12/31/2024 10:00 AM EDT Ancillary Procedure Maternal Medicine - [address] [phone] 01/09/2025 11:15 AM EDT Routine Obstetrics and Gynecology - [address] [phone] Rekha Plummer MD [address] [place] [address] documented as of this encounter Visit Diagnoses Not on filedocumented in this encounter Additional Health Concerns Assessment Noted Time PHQ-9 Depression Total Score: 0 12/06/19 3:50 PM EDT documented as of this encounter Care Teams Team Physician Relationship Specialty Start Date End Date Sophia Simpson [address] [place] [address] PCP - General 09/24/24 documented as of this encounter
--- OUTSIDE RECORDS SUMMARY | 2024-12-16 19:37 | XMS_ITS | Clinical Summary ---
Author Organization [facility] [address] [facility] lding Address [address] [place] [address] Phone Care Team Providers Care Power System Electrical Engineer Name Role Phone Sophia Simpson Primary Care Provider [phone] Allergies Active Allergy Reactions Criticality Noted Date Comments Acetaminophen Anaphylaxis,Hives High 10/12/2016 Medications vit,la [id number] 27 mg iron- 1 mg tabletIndication s: [...] 3- hr GTT Forward chart to P [id number] ([facility]) Nutrition teaching: [...] between 01/06-01/20) Serial growth ultrasounds after diagnosis Boiler Testing Technician on shoulder dystocia: 11/29/2024 Deliver by 40 [...] EDT): Vaccinate PP care, subsequent [facility] 10/22/2024 Overview (11/12/2024): 1. [facility] site: [facility]: [address] [place] [phone] ([phone]) 2. Delivery site: [facility] 3. Mobile Mommas: 4. Dating criteria: LMP [...] BMI of 50 by 28wks transfer to [facility] DVT prophylaxis- Lovenox if CS and BMI >35 Assessment & Plan (11/13/2024 4:40 PM EDT): Start ASA PCOS (polycystic ovarian syndrome) 01/28/2017 Estimated Date of Delivery Comme nts Yes 05/12/2025 Based on Ultraso und Resolved Problems Problem Noted Date Diagnosed Date Resolved Date Gingivitis 11/02/2024 11/13/2024 Encounters Date Type Department Care Team Description 12/12/2024 3:00 PM EDT Routine Obstetrics and Gynecology - [address] [phone] Rolly Levy CNM Supervision of other high risk pregnancies, second trimester (Primary Dx); Diet controlled gestational diabetes mellitus (GDM) in second trimester; 18 weeks gestation of ; Screening for genetic disease carrier status 12/10/2024 Telephone Obstetrics and Gynecology - [place] [address] [place], [place] [phone] Naye Carrizales, RN GDM 12/03/2024 [facility] [address] [place], [place] [phone] Naye Carrizales, RN GDM 11/29/2024 3:00 PM EDT Routine Obstetrics and Gynecology - [place] [address] [place] [phone] Rolly Levy CNM Diet controlled gestational diabetes mellitus (GDM) in second trimester (Primary Dx); 16 weeks gestation of 11/26/2024 Telephone Obstetrics and Gynecology - [address] [phone] Naye Carrizales, RN GDM 11/19/2024 Telephone Obstetrics and Gynecology - [address] [phone] Naye Carrizales RN GDM 11/14/2024 10:30 AM EDT Nutrition Internal Medicine - [place] [address] [place] [phone] Diet controlled gestational diabetes mellitus (GDM) in second trimester (Primary Dx) 11/13/2024 1:35 PM EDT Lab Draw Station - [address] Obesity in ; History of gestational hypertension 11/13/2024 1:15 PM EDT Initial Obstetrics and Gynecology - [address] [phone] Rekha Plummer MD GA: 14w2d 11/12/2024 [facility] - [address] [phone] Naye Carrizales, RN new diagnosis gestational diabetes 11/09/2024 [facility] - [address] [phone] Shayy Bach CNM Letter for School/Work; Forms/questionnaire s 11/06/2024 10:00 AM EST Ancillary Procedure Maternal Medicine - [address] [phone] Encounter for (NT) nuchal translucency scan 10/22/2024 1:00 PM EST Ancillary Procedure Maternal Medicine - [address] [phone] care, subsequent in first trimester 10/22/2024 11:00 AM EST Clinical Support Obstetrics and Gynecology - [address] [phone] care, subsequent in first trimester (Primary Dx); Obesity in ; PCOS (polycystic ovarian syndrome); History of 2 sections; Anxiety and depression; Bipolar 1 disorder ([facility] V24, [facility] V28) 09/25/2024 10:30 AM EST Office Visit Obstetrics and Gynecology - [address] [phone] Shayy Bach CNM Early stage of (Primary [...] 1 disorder ([facility] V24, [facility] V28) Polycystic ovary syndrome Gingivitis 11/02/2024 Family [...] for your loved ones. For example, child nutrition assistant or elderly care for an older adult? [...] Estimated Date of Delivery 10/22/2024 - Present (12/16/2024) 1 05/12/2025 (set by Catherine pool RN [...] Vitals Pregravid Weight Height TWG (As of 12/16/2024) Pregrav id BMI 78.5 kg (173 lb) 1.549 m (61 ) 6.804 kg (15 lb) 32.70 Notes Progress Notes - Routine Pre power - 12/12/2024 - GA:18w3d 12/12/2024 - 18w3d - Rolly Levy CNM OB Visit: Vitals BP: 121/71 Weight: 85.3 kg (188 lb) Assessment Heart Rate: 155 Fundal Height (cm): 20 cm Movement: Present historic interpreter Rishabh # [id number] used for today's encounter 34 y.o. old female at 18w3d. Doing well. Active FM. No LOF/VB/cramping. Her only new concern is her blood sugars. Otherwise complicated by GDMA1 diet controlled but all fasting's have been elevated states related to not sleeping well and stressed. But when asked if she is eating retail support manager hours and she said sometimes she was. [...] - 16w4d - Rolly Levy CNM Subjective historic interpreter Mone # [id number] used for today's encounter Debbi Nichols is a 34 y.o. at 16w5d with a working estimated date of delivery of 05/12/2025, by Ultrasound who presents for an initial visit for her gestational diabetes which is currently diet controlled. This is planned. Novatris Glucose Monitoring Flowsheet Before Breakfast Glucose After Breakfast Glucose 11/20/2024 92 mg/dL (MD) 110 mg/dL (MD) 11/21/2024 92 mg/dL (MD) 98 mg/dL (MD) 11/22/2024 92 mg/dL (MD) 101 mg/dL (MD) 11/23/2024 90 mg/dL (MD) 76 mg/dL (MD) 11/24/2024 90 mg/dL (MD) 95 mg/dL (MD) 11/25/2024 92 mg/dL (MD) 116 mg/dL (MD) 11/26/2024 103 mg/dL (MD) 103 mg/dL (MD) After Lunch Glucose After Dinner Glucose 11/20/2024 131 mg/dL (MD) 101 mg/dL (MD) 11/21/2024 108 mg/dL (MD) 120 mg/dL (MD) 11/22/2024 120 mg/dL (MD) 120 mg/dL (MD) 11/23/2024 104 mg/dL (MD) 110 mg/dL (MD) 11/24/2024 130 mg/dL (MD) 120 mg/dL (MD) 11/25/2024 116 mg/dL (MD) 117 mg/dL (MD) 11/26/2024 Her is complicated by: Obesity has [...] mouth 1 (one) time each day. vit,la [id number] 27 mg iron- 1 mg tablet Take [...] guidelines. (this will be adjusted by the roll icer machine specifically for your specific needs) Carbohydrate minimums: [...] monitor wellbeing. Diet and Exercise -referral to program director cable television and to roll icer machine placed Glucose Monitoring -glucometer and testing strips [...] the first trimester and how to contact board of education secretary provider. Discussed the benefits of breast feeding and strongly encouraged to consider this. Counseled regarding the diagnosis of anomalies. She was offered a referral to maternal medicine for nuchal lucency/[place] testing. She already accepted the referral. RTO 4 weeks. The patient does not require anesthesia consult. This patient's VTE risk status is low. [place] Depression Scale: In the Past 7 Days [...] harming myself has occurred to me.: Never [place] Depression Scale Total: 3 [place] SCREENING CHARGE (Clinic Only): 60640 Obesity in Start ASA Diet controlled gestational [...] y.o. old female at 13w3d. This is [place]. The patient feels happy about the . [...] to the above questions, is this for scientologist reasons? No Do you know what your [...] dilation and curettage, etc? Yes-polypectomy in 2023- [place] Have you had any other surgical procedures? [...] [place]go has also been informed of the editor publications provider recommendation for first trimester nuchal lucency [...] Genetic Testing has been reviewed and the [employer] information sheet has been provided to the [...] AM EDT Ancillary Procedure Maternal Medicine - [address] [phone] 01/09/2025 11:15 AM EDT Routine Obstetrics and Gynecology - [address] [phone] Rekha Plummer MD [address] [place] [phone] Health Maintenance Due Date Last Done Comments [...] MOLECULAR DIAGNOSTICS METHOD 11/14/2024 10:29 AM EDT [facility] Chlamydia trachomatis PCR Negative Negative LAB MOLECULAR DIAGNOSTICS METHOD 11/14/2024 10:29 AM EDT [facility] Swab Cervix uteri structure / Unknown Non-blood Collection / Unknown 11/13/2024 2:18 PM EDT 11/13/2024 2:18 PM EDT Rekha Plummer MD LAB MICROBIOLOGY - GENERAL ORDERABLES Final Result [facility] [address] [place] [address], * Protein and creatinine with ratio, urine (11/13/2024 1:37 PM EDT) Protein, Urine 15 mg/dL LAB CHEMISTRY METHOD 11/13/2024 5:51 PM EDT [facility] Prot/Creat, Ur 0.06 <=0.20 mg/mg creat LAB CHEMISTRY METHOD 11/13/2024 5:51 PM EDT [facility] Creatinine, Urine 231.0 mg/dL LAB CHEMISTRY METHOD 11/13/2024 5:51 PM EDT [facility] Urine Urine specimen obtained by clean catch procedure / Unknown Non-blood Collection / Unknown 11/13/2024 1:37 PM EDT 11/13/2024 1:37 PM EDT us Rekha Plummer MD LAB URINE ORDERABLES Final Result Performing Organization Address [facility] Co de Phone Number [facility] [address] [place] [address], [place] [phone] * Creatinine (11/13/2024 1:37 PM EDT) Creatinine 0.68 0.50 - 1.10 mg/dL LAB CHEMISTRY METHOD 11/13/2024 5:12 PM EDT [facility] eGFR 118 >=60 mL/min/1. 73m2 LAB CHEMISTRY METHOD 11/13/2024 5:12 PM EDT [facility] Comment:Calculation based on the??Chronic Kidney Disease Epidemiology Collaboration (CKD-EPI) equation refit??without adjustment for race. Blood Venous blood specimen / Unknown Venipuncture / Unknown 11/13/2024 1:37 PM EDT 11/13/2024 1:37 PM EDT us Rekha Plummer MD LAB BLOOD ORDERABLES Final Result Performing Organization Address [facility] de Phone Number [facility] [address] [place] [address], [place] [phone] * Alanine aminotransferase (11/13/2024 1:37 PM EDT) ALT (SGPT) 30 10 - 60 unit/L LAB CHEMISTRY METHOD 11/13/2024 5:12 PM EDT [facility] Blood Venous blood specimen / Unknown Venipuncture / Unknown 11/13/2024 1:37 PM EDT 11/13/2024 1:37 PM EDT us Rekha Plummer MD LAB BLOOD ORDERABLES Final Result Performing Organization Address City/[facility] Co de Phone Number [facility] [address] [place] [address], [place] [phone] * Aspartate aminotransferase (11/13/2024 1:37 PM EDT) AST (SGOT) 23 10 - 42 unit/L LAB CHEMISTRY METHOD 11/13/2024 5:12 PM EDT [facility] Blood Venous blood specimen / Unknown Venipuncture / Unknown 11/13/2024 1:37 PM EDT 11/13/2024 1:37 PM EDT us Rekha Plummer MD LAB BLOOD ORDERABLES Final Result Performing Organization Address [facility] Co de Phone Number [facility] [address] [place] [address], [place] [phone] * HPV with reflex genotype (11/13/2024 1:18 PM EDT) [facility] HPV Negative Negative LAB MICROBIOLOGY METHOD 11/14/2024 1:55 PM EDT [facility] Brushing/Spatula Cervix uteri structure / Unknown 11/13/2024 1:18 PM EDT 11/14/2024 5:57 AM EDT us Rekha Plummer MD LAB MOLECULAR DIAGNOSTICS O RDERABLES Final Result Performing Organization Address City/[facility]/ZIP Co de Phone Number [facility] [address] [place] [address], [place] [phone] * Pap smear (11/13/2024 1:18 PM EDT) Interpretation Negative for intraepithelial lesion or malignancy 11/15/2024 9:12 AM EDT [facility] General Categorization Negative 11/15/2024 9:12 AM EDT [facility] Other Findings Shift in hoda suggestive of bacterial vaginosis 11/15/2024 9:12 AM [facility] Specimen Adequacy Satisfactory for evaluation, endocervical/stock sformation zone component present 11/15/2024 9:12 AM [facility] Pap Methodology Liquid Based Pap Test 11/15/2024 9:12 AM [facility] Disclaimer The Pap test is a screening test which carries an inherent false negative rate. These test results should be correlated with the patient's clinical findings and history. This Pap test was processed using an automated screening system. Technical cytopathology services provided by [facility], at [address] [place] [address] (CLIA # [id number]/Shayan Russ MD, Malted Milk Supervisor.) 11/15/2024 9:12 AM [facility] Console Pap Interpretation Reported 11/15/2024 9:12 AM [facility] Brushing/Spatula Cervix uteri structure / Unknown 11/13/2024 1:18 PM EDT 11/13/2024 1:18 PM EDT us Rekha Plummer MD LAB CYTOLOGY ORDERABLES Fin al Result [facility] [address] [place] [address], * Horizon 14 (11/13/2024 12:43 PM EDT) Only the most recent of2 resultswithin the time period is included. Blood Venous blood specimen / Unknown us Rekha Plummer MD LAB BLOOD ORDERABLES Final Result * GTT gestational 3 hour (11/09/2024 12:05 PM EST) Glucose, 3 HR Gestational 138 See Comment mg/dL LAB CHEMISTRY METHOD 11/09/2024 5:00 PM EST [facility] Blood Venous blood specimen / Unknown Venipuncture / Unknown 11/09/2024 12:05 PM EST 11/09/2024 12:05 PM EST Narrative [facility] - 11/09/2024 5:00 PM EST Gestational 3 hour GTT Reference Range: Normal: ??Fasting: ?< 95 ??mg/dL ? 60 minute: ?< 180 mg/dL ? 120 minute: ?? < 155 mg/dL ? 180 minute: ?? < 140 mg/dL Rekha Plummer MD LAB BLOOD ORDERABLES Final Result Performing Organization Address [facility]/ZIP Co de Phone Number [facility] [address] [place] [address], * GTT gestational 2 hour (11/09/2024 11:01 AM EST) Glucose, 2 HR Gestational 199 See Comment mg/dL LAB CHEMISTRY METHOD 11/09/2024 5:00 PM EST [facility] Blood Venous blood specimen / Unknown Venipuncture / Unknown 11/09/2024 11:01 AM EST 11/09/2024 11:01 AM EST Rekha Plummer MD LAB BLOOD ORDERABLES Final Result Performing Organization Address [facility]/ZIP Co de Phone Number [facility] [address] [place] [address], [place] [phone] * GTT gestational 1 hour (11/09/2024 9:59 AM EST) Only the most recent of2 resultswithin the time period is included. Glucose, 1 HR Gestational 203 See Comment mg/dL LAB CHEMISTRY METHOD 11/09/2024 5:01 PM EST [facility] Blood Venous blood specimen / Unknown Venipuncture / Unknown 11/09/2024 9:59 AM EST 11/09/2024 9:59 AM EST Rekha Plummer MD LAB BLOOD ORDERABLES Final Result Performing Organization Address [facility]/ZIP Co de Phone Number [facility] [address] [place] [address], [place] [phone] * (ABNORMAL) GTT gestational fasting (11/09/2024 8:56 AM EST) [facility] Signature Glucose, GTT - Fasting 104(H) 70 - 100 mg/dL LAB CHEMISTRY METHOD 11/09/2024 5:00 PM EST [facility] Blood Venous blood specimen / Unknown Venipuncture / Unknown 11/09/2024 8:56 AM EST 11/09/2024 8:56 AM EST Rekha Plummer MD LAB BLOOD ORDERABLES Final Result Performing Organization Address [facility] Co de Phone Number [facility] [address] [place] [address], [place] [phone] * US OB Less 14 Wks Nuchal Measurement (11/06/2024 9:55 AM EST) Anatomical Region Laterality Modality Body Ultrasound 11/06/2024 9:27 AM EST Narrative 11/06/2024 11:00 AM EST OBSTETRICS REPORT ?(Signed Final 11/06/2024 11:00 am) PATIENT INFO: ID #: ? [id number] ? : ??[birth year] (34 yrs)(F) Name: ? DEBBI Jaquez ? Visit Date: 11/06/2024 09:27 am ? KB PERFORMED BY: Attending: ?Radha Jean MD Performed By: ? Janneth Lee RDMS Referred By: ?Rekha Plummer MD Ref. Address: ? [address] [facility] ? [place] ??[address] Location: ? [place] [facility] ([facility]) SERVICE(S) PROVIDED: US < 14 weeks Abdominal Ultrasound ?[address] [place] Nuchal Translucency ?31787 INDICATIONS: Medication exposure, first trimester ? O09.891 [...] 11/06/2024 11:00 am) PATIENT INFO: ID #: [id number] : [birth year] (34 yrs)(F) Name: DEBBI Jaquez Visit Date: 11/06/2024 09:27 am BK PERFORMED BY: Attending: Radha Jean MD Performed By: Janneth Lee [facility] Referred By: Rekha Plummer MD Ref. Address: [address] [place] [address] Location: [place] [facility] ([facility]) SERVICE(S) PROVIDED: US < 14 weeks Abdominal Ultrasound [address] [place] Nuchal Translucency 713[address] INDICATIONS: Medication exposure, first trimester O09.891 Obesity [...] 11:00 am) PATIENT INFO: ID #: ? [id number] ? : ??[birth year] (34 yrs)(F) Name: ? DEBBI Jaquez ? Visit Date: 11/06/2024 09:27 am ? KB PERFORMED BY: Attending: ?Radha Jean MD Performed By: ? Janneth Lee [facility] Referred By: ?Rekha Plummer MD Ref. Address: ? [address] [facility] ? [place] ??[address] Location: ? [place] [facility] ([facility]) SERVICE(S) PROVIDED: US < 14 weeks Abdominal Ultrasound ?[address] Nuchal Translucency ?98785 INDICATIONS: Medication exposure, first trimester ? O09.891 [...] 11/06/2024 11:00 am) PATIENT INFO: ID #: [id number] : [birth year] (34 yrs)(F) Name: DEBBI Jaquez Visit Date: 11/06/2024 09:27 am KB PERFORMED BY: Attending: Radha Jean MD Performed By: Janneth Lee [facility] Referred By: Rekha Plummer MD Ref. Address: [address] [place] [address] Location: [place] [facility] ([facility]) SERVICE(S) PROVIDED: US < 14 weeks Abdominal Ultrasound [address] [place] Nuchal Translucency 67769 INDICATIONS: Medication exposure, first trimester O09.891 Obesity [...] C antibody (10/22/2024 12:59 PM EST) Pathologist [facility] Hepatitis C Antibody Negative Negative LAB CHEMISTRY METHOD 10/22/2024 5:34 PM EST [facility] Blood Venous blood specimen / Unknown Venipuncture / Unknown 10/22/2024 12:59 PM EST 10/22/2024 12:59 PM EST us Rekha Plummer MD LAB BLOOD ORDERABLES Final Result [facility] [address] [place] [address], [place] [phone] * HIV 1,2 antibody, p24 antigen with reflex to differentiation (10/22/2024 12:59 PM EST) HIV Combo AB/AG Negative Negative LAB CHEMISTRY METHOD 10/22/2024 5:34 PM EST [facility] Blood Venous blood specimen / Unknown Venipuncture / Unknown 10/22/2024 12:59 PM EST 10/22/2024 12:59 PM EST Narrative [facility] - 10/22/2024 5:34 PM EST [...] BLOOD ORDERABLES Final Result Performing Organization Address City/[facility]/ZIP Co de Phone Number [facility] [address] [place] [address], [place] [phone] * Hepatitis B surface antigen with reflex to confirmation (10/22/2024 12:59 PM EST) Pathologist [facility] Hepatitis B Surface Ag Negative Negative LAB CHEMISTRY METHOD 10/22/2024 5:06 PM EST [facility] Blood Venous blood specimen / Unknown Venipuncture / Unknown 10/22/2024 12:59 PM EST 10/22/2024 12:59 PM EST Narrative [facility] - 10/22/2024 5:06 PM EST Over the counter supplements containing high doses of biotin may interfere with this assay. ??If interference is suspected, patients shoud be retested after refraining from biotin supplements for 72 hours. us Rekha Plummer MD LAB BLOOD ORDERABLES Final Result Performing Organization Address City/[facility]/ZIP Co de Phone Number [facility] [address] [place] [address], [place] [phone] * Treponema pallidum antibody with reflex to RPR and particle agglutination (10/22/2024 12:59 PM EST) T. Pallidum Antibodies Negative Negative LAB CHEMISTRY METHOD 10/22/2024 6:03 PM EST [facility] Blood Venous blood specimen / Unknown Venipuncture / Unknown 10/22/2024 12:59 PM EST 10/22/2024 12:59 PM EST Rekha Plummer MD LAB BLOOD ORDERABLES Final Result Performing Organization Address [facility]/ZIP Co de Phone Number [facility] [address] [place] [address], [place] [phone] * Venipuncture charge (10/22/2024 12:59 PM EST) Pathologist [facility] Extra Tube Hold for add-ons. 10/22/2024 2:01 PM EST [facility] ([place]) Comment:Auto resulted. Blood Venous blood specimen / Unknown Venipuncture / Unknown 10/22/2024 12:59 PM EST 10/22/2024 12:59 PM EST us Rekha Plummer MD LAB BLOOD ORDERABLES Final Result Performing Organization Address [facility]/ZIP Co de Phone Number [facility] ([place]) [place], [place] * Drug abuse screen expanded with reflex confirmation, urine (10/22/2024 12:59 PM EST) Amphetamine Screen, Ur Negative Negative LAB CHEMISTRY METHOD 10/22/2024 3:02 PM EST [facility] Comment:Certain OTC medicati ons containing ephedrine, phenylephrine, pseudoephedrine and phenylpropanolamine can cause false positive results. Barbiturate Screen, Ur Negative Negative LAB CHEMISTRY METHOD 10/22/2024 3:02 PM EST [facility] Benzodiazepine Screen, Ur Negative Negative LAB CHEMISTRY METHOD 10/22/2024 3:02 PM EST [facility] Cocaine Screen, Ur Negative Negative LAB CHEMISTRY METHOD 10/22/2024 3:02 PM [facility] Opiate Screen, Ur Negative Negative LAB CHEMISTRY METHOD 10/22/2024 3:02 PM [facility] Cannabinoid (THC) Screen, Ur Negative Negative LAB CHEMISTRY METHOD 10/22/2024 3:02 PM EST [facility] Comment:Specimens from patie nts taking pantoprazole sodium (Protonix) have been shown to produce false positive results. Fentanyl, Ur Negative Negative LAB CHEMISTRY METHOD 10/22/2024 3:02 PM EST [facility] Oxycodone Screen, Ur Negative Negative LAB CHEMISTRY METHOD 10/22/2024 3:02 PM [facility] Urine Urine specimen obtained by clean catch procedure / Unknown Non-blood Collection / Unknown 10/22/2024 12:59 PM EST 10/22/2024 12:59 PM EST [facility] - 10/22/2024 3:02 PM EST [...] Plummer MD LAB URINE ORDERABLES Final Result [facility] [address] [place] [address], * (ABNORMAL) CBC auto differential (10/22/2024 12:59 PM EST) [facility] WBC 8.7 4.8 - 10.8 K/mcL LAB HEMETOLOGY METHOD 10/22/2024 2:05 PM [facility] RBC 4.40 3.80 - 4.80 M/mcL LAB HEMETOLOGY METHOD 10/22/2024 2:05 PM [facility] Hemoglobin 13.5 11.5 - 16.0 g/dL LAB HEMETOLOGY METHOD 10/22/2024 2:05 PM [facility] Hematocrit 41.3 35.0 - 47.0 % LAB HEMETOLOGY METHOD 10/22/2024 2:05 PM [facility] MCV 93.9 79.0 - 98.0 FL LAB HEMETOLOGY METHOD 10/22/2024 2:05 PM [facility] MCH 30.7 27.0 - 32.0 pcg LAB HEMETOLOGY METHOD 10/22/2024 2:05 PM [facility] MCHC 32.7 32.0 - 37.0 g/dL LAB HEMETOLOGY METHOD 10/22/2024 2:05 PM [facility] RDW 13.6 11.0 - 15.0 % LAB HEMETOLOGY METHOD 10/22/2024 2:05 PM [facility] Platelets 233 130 - 400 K/mcL LAB HEMETOLOGY METHOD 10/22/2024 2:05 PM [facility] MPV 11.0 7.0 - 11.0 FL LAB HEMETOLOGY METHOD 10/22/2024 2:05 PM [facility] NRBC 0.0 <1.0 % LAB HEMETOLOGY METHOD 10/22/2024 2:05 PM [facility] NRBC Absolute 0.00 <0.10 K/mcL LAB HEMETOLOGY METHOD 10/22/2024 2:05 PM [facility] Neutrophils Relative 74.7 % LAB HEMETOLOGY METHOD 10/22/2024 2:05 PM [facility] Lymphocytes Relative 16.8 % LAB HEMETOLOGY METHOD 10/22/2024 2:05 PM [facility] Monocytes Relative 6.5 % LAB HEMETOLOGY METHOD 10/22/2024 2:05 PM [facility] Eosinophils Relative 1.0 % LAB HEMETOLOGY METHOD 10/22/2024 2:05 PM [facility] Basophils Relative 0.3 % LAB HEMETOLOGY METHOD 10/22/2024 2:05 PM [facility] Immature Granulocytes Relative 0.7 % LAB HEMETOLOGY METHOD 10/22/2024 2:05 PM [facility] Neutrophils Absolute 6.50 1.50 - 7.00 K/mcL LAB HEMETOLOGY METHOD 10/22/2024 2:05 PM [facility] Lymphocytes Absolute 1.46 1.00 - 5.00 K/mcL LAB HEMETOLOGY METHOD 10/22/2024 2:05 PM [facility] Monocytes Absolute 0.57 0.20 - 1.00 K/mcL LAB HEMETOLOGY METHOD 10/22/2024 2:05 PM [facility] Eosinophils Absolute 0.09 0.00 - 0.50 K/mcL LAB HEMETOLOGY METHOD 10/22/2024 2:05 PM [facility] Basophils Absolute 0.03 0.00 - 0.20 K/mcL LAB HEMETOLOGY METHOD 10/22/2024 2:05 PM [facility] Immature Granulocytes Absolute 0.06(H) 0.00 - 0.03 K/mcL LAB HEMETOLOGY METHOD 10/22/2024 2:05 PM EST [facility] Blood Venous blood specimen / Unknown Venipuncture / Unknown 10/22/2024 12:59 PM EST 10/22/2024 12:59 PM EST us Rekha Plummer MD LAB BLOOD ORDERABLES Final Result Performing Organization Address [facility]/ZIP Co de Phone Number [facility] [address] [place] [address], [place] [phone] * Rubella antibody IgG (10/22/2024 12:59 PM EST) Rubella IgG Quant 55.0 >=10.0 I Unit/mL LAB CHEMISTRY METHOD 10/22/2024 5:05 PM EST [facility] Rubella IgG Antibody Interp Positive Positive LAB CHEMISTRY METHOD 10/22/2024 5:05 PM EST [facility] Blood Venous blood specimen / Unknown Venipuncture / Unknown 10/22/2024 12:59 PM EST 10/22/2024 12:59 PM EST us Rekha Plummer MD LAB BLOOD ORDERABLES Final Result Performing Organization Address City/[facility]/ZIP Co de Phone Number [facility] [address] [place] [address], [place] [phone] * Type and screen (10/22/2024 12:59 PM EST) ABO Group O 10/22/2024 3:37 PM EST [facility] Rh Type Positive 10/22/2024 3:37 PM EST [facility] Antibody Screen Negative 10/22/2024 3:37 PM EST [facility] Blood Venous blood specimen / Unknown Venipuncture / Unknown 10/22/2024 12:59 PM EST 10/22/2024 12:59 PM EST us Rekha Plummer MD LAB BLOOD BANK TEST ORDERAB LES Final Result Performing Organization Address [facility] Co de Phone Number [facility] [address] [place] [address], [place] [phone] * Culture urine (10/22/2024 12:59 PM EST) [facility] Culture, Urine >100,000 CFU/mL Mixed bacterial morphotypes present suggestive of possible contamination during collection. Suggest appropriate recollection if clinically indicated. 10/24/2024 9:53 AM EST [facility] Urine Urine specimen obtained by clean catch procedure / Unknown Non-blood Collection / Unknown 10/22/2024 12:59 PM EST 10/22/2024 12:59 PM EST us Rekha Plummer MD LAB MICROBIOLOGY - GENERAL ORDERABLES Final Result Performing Organization Address [facility] de Phone Number [facility] [address] [place] [address], [place] [phone] * (ABNORMAL) Varicella zoster antibody IgG (10/22/2024 12:59 PM EST) [facility] Varicella IgG Negative( A) Positive LAB CHEMISTRY METHOD 10/23/2024 8:55 AM EST [facility] Varicella Zoster IgG 0.05(L) >=1.00 S/CO LAB CHEMISTRY METHOD 10/23/2024 8:55 AM EST [facility] Blood Venous blood specimen / Unknown Venipuncture / Unknown 10/22/2024 12:59 PM EST 10/22/2024 12:59 PM EST Narrative [facility] - 10/23/2024 8:55 AM EST Interpretation >= 1.00 S/CO is considered to be consistent with Immunity us Rekha Plummer MD LAB BLOOD ORDERABLES Final Result Performing Organization Address [facility] Co de Phone Number [facility] [address] [place] [address], [place] [phone] * Hemoglobin A1c (10/22/2024 12:59 PM EST) [facility] Hemoglobin A1C 5.4 <6.5 % LAB CHEMISTRY METHOD 10/22/2024 9:18 PM EST [facility] Mean Bld Glu Estim. 108 mg/dL LAB CHEMISTRY METHOD 10/22/2024 9:18 PM EST [facility] Blood Venous blood specimen / Unknown Venipuncture / Unknown 10/22/2024 12:59 PM EST 10/22/2024 12:59 PM EST Rekha Plummer MD LAB BLOOD ORDERABLES Final Result [facility] [address] [place] [address], [place] [phone] * (ABNORMAL) POC , urine manually resulted (09/25/2024 10:48 AM EST) [facility] HCG, Ur POC Positive(A ) Negative POC hCG Int QC Pass? Yes Yes Urine Urine specimen obtained by clean catch procedure / Unknown 09/25/2024 10:48 AM EST Shayy Bach CNM POINT OF CARE TEST ENTER/EDIT ORDERABLES Final Result from Last 3 Months Insurance [facility] Care Teams Power System Electrical Engineer Relationship Specialty Start Date End Date Sophia Simpson [address] [place] [id number] PCP - General 09/24/24
--- OUTSIDE RECORDS SUMMARY | 2024-12-16 19:37 | XMS_ITS | Clinical Summary ---
Author Organization [employer] Address [address] [place] [address] Care Team Providers Care Medical Certification Specialist Name Role Phone Presley Rodriguez Unavailable Provider, Not In System Primary Care Provider Un available Allergies Active Allergy Reactions Criticality Noted Date Comments Acetaminophen Hives 11/02/2024 Medications lamoTRIgine (LaMICtal) 25 MG tablet Take by mouth. Active Active Problems Problem Noted Date Diagnosed Date Gingivitis 11/02/2024 Encounters Date Type Department Care Team Description 11/02/2024 2:30 PM EST Office Visit [facility] [address] [place] [address] Demian Ferreira DDS Gingivitis (Primary Dx) from [...] 4th Gen HIV Antibody Antigen NEGATIVE (NEG) [facility] Comment: Negative for antibodies to HIV 1 and HIV 2 and P24 antigen. Reference range: Negative Additional note: Written patient authorization is required for each separate release of this test result. This test was performed on the [employer] Sander Operator immunoassay system. Testing performed or reported by [facility], a Service of [facility], [facility] [address] [place] [address] Russell Cummings MD, Toll Gate Keeper [facility]# [id number] 09/10/2022 8:57 AM EST 09/10/2022 9:00 AM EST Risa Yoder [facility] LAB BLOOD ORDERABLES Final Res ult [facility] [address] [place] [address] from Last 3 Months or Most Recently Relevant to Health Maintenance Insurance D[facility]AL-[facility] MEDICAID STAND ADULT * Guarantor: Alissa Nichols Account Type Relation to Patient Date of Phone Billing Address Dental Self Care Teams Medical Certification Specialist Relationship Specialty Start Date End Date Provider, Not In System PCP - General Family Medicine 11/03/23 Presley Rodriguez PA [address] [place] [id number] Family Medicine 07/02/22
[2024-12-16 19:38] LABS: MANUAL DIFF FLAG NO
[2024-12-16 19:41] LABS: Basophils Percent Auto 0.3 % (0-2); Eosinophils Absolute Auto 0.2 X10*3/uL (0.0-0.4); Eosinophils Percent Auto 1.7 % (0-4); Hematocrit 38.5 % (37.0-47.0); Imm Gran Abs Auto 0.04 X10*3/uL (0.00-0.03); Imm Gran Pct Auto 0.4 % (0.0-0.4); Lymphocytes Absolute Auto 1.6 X10*3/uL (1.2-4.9); Lymphocytes Percent Auto 17.6 % (20-40); Mean Corpuscular HGB Conc 33.8 g/dl (31.0-35.0); Mean Corpuscular Hemoglobin 31.5 pg (27.0-33.0); Mean Corpuscular Volume 93.2 fL (80.0-98.0); Mean Platelet Volume 10.6 fL (9.4-12.3); Monocytes Absolute Auto 0.8 X10*3/uL (0.1-1.2); Monocytes Percent Auto 8.4 % (2-11); Neutrophils Absolute Auto 6.5 x10*3/uL (2.0-8.3); Neutrophils Percent Auto 71.6 % (45-73); Platelet Count 209 X10*3/uL (160-400); Red Blood Count 4.13 X10*6/uL (4.20-5.50); Red Cell Distribution Width 13.1 % (11.0-16.0); White Blood Count 9.1 X10*3/uL (4.8-10.8)
[2024-12-16 20:02] LABS: Alanine Aminotransferase 20 U/L (0-31); Albumin Level 3.6 g/dL (3.5-5.0); Alkaline Phosphatase 60 U/L (39-117); Anion Gap 12 (12-20); Aspartate Amino Transferase 22 U/L (5-31); Bilirubin Total 0.2 mg/dL (0.0-1.0); Blood Urea Nitrogen 9 mg/dL (9-16); Calcium 9.3 mg/dL (8.4-10.2); Carbon Dioxide 22 mmol/L (22-29); Chloride 108 mmol/L (96-108); Creatinine Clr Calc Pharmacy 104.4; Estimated Glomerular Filt Rate > 60; Glucose Random 101 mg/dL (60-115); Potassium 4.1 mmol/L (3.3-5.1); Sodium 138 mmol/L (135-145); Total Protein 6.5 g/dL (6.5-8.0)
[2024-12-16 20:06] VITALS: BP 115/72; PULSE 92; RESP 18; TEMP 36.9; O2SAT 99
[2024-12-16 20:14] LABS: Appearance Urine Clear; Color Urine Yellow; Glucose Urine UA Negative (Negative); Leukocyte Esterase Urine Trace (Negative); Nitrite Urine Negative (Negative); PH 7.5 (5.0-9.0); UMIC TRIGGER UACC YES; Urine Blood Moderate (2+) (Negative); Urine Ketones Negative (Negative); Urine Protein Negative (Neg-Trace)
[2024-12-16 20:25] LABS: Bacteria Urine 1+ (None Seen); Hyaline Casts Urine 0-2 /LPF (0-2); UACC Culture Trigger YES
[2024-12-16 22:26] LABS: HCG Quantitative 24031 mIU/mL
[2024-12-16 22:44] VITALS: BP 128/83; PULSE 91; RESP 18; TEMP 36.9; O2SAT 98
[2024-12-16] MEDS: cephALEXin 500 MG CAPSULE PO (22:51)
[2024-12-16 22:53] VITALS: BP 128/83; PULSE 91; RESP 18; TEMP 36.9; O2SAT 98
== END 2024-12-16 22:54 | disposition home or self-care (01) ==
PROVIDERS: Registered Nurse Emergency; Emergency Provider Emergency Medicine Emergency Medical Services; PCP Nurse Practitioner Family
DX: O26.852 Spotting complicating pregnancy, second trimester (principal); O23.42 Unspecified infection of urinary tract in pregnancy, second trimester; N39.0 Urinary tract infection, site not specified; Z3A.19 19 weeks gestation of pregnancy; R31.9 Hematuria, unspecified
CPT/HCPCS: 36415; 80053; 81001; 84702; 85025; 87086; 99283

== ENCOUNTER → 2025-01-15 12:44 | Outpatient (BNVA) | payer OTHER, SELFPAY | PROVIDERS: PCP Nurse Practitioner Family; Visit Provider Obstetrics & Gynecology ==

== ENCOUNTER 2025-07-08 09:58 | Outpatient (AMB) | payer OTHER, SELFPAY ==
--- NOTE | 2025-07-08 10:00 | A.OFFPC_ITS ---
Vital Signs 07/08/25 10:01 Height 5 ft 2 in Weight 165 lb 6 oz BMI 30.2 BP 98/70 Blood Pressure Location Lt brachial Position Sitting Respiration 18 Pulse 82 Pulse Source Pulse Oximeter Temp 96.9 F Temp Source Temporal Artery Scan Pulse Oximetry (%) 98 Oxygen Delivery Method Room Air Intake Visit Reasons: bipolar/depression/anxiety Manufacturing Cost Estimator Required: Yes Manufacturing Cost Estimator Name: natalia/[id number] Accompanied by: Self / Same As Patient Allergies acetaminophen (From Tylenol) Allergy (Severe, Verified 07/08/25 10:27) Anaphylaxis Medication List - Last Reconciled 07/08/25 by ADRIENNE Strong blood sugar diagnostic (FreeStyle Lite Strips) As directed blood-glucose meter (FreeStyle [place] Lite kit) As directed cholecalciferol (vitamin D3) 125 mcg PO DAILY lamotrigine 100 mg PO DAILY lancets (TRUEplus Lancets) As directed PNV,calcium 46-hqnt-vjzdu acid 27 mg iron- 1 mg ( Vitamins Plus Low Iron) tabs PO DAILY promethazine mg PO BID sertraline 50 mg PO DAILY Tobacco use date assessed: 07/08/25 Dental Screening Dental Screen Date: 07/08/25 Did you have a dental visit in the last 12 months?: No Did you have a dental problem in the last 6 months where you did not have access to dental care?: No Was dental information given to patient?: No HPI bipolar/depression/anxiety HPI Details The patient is a 34-year-old female presenting with a follow-up visit for care and medication management. She gave two months ago and is currently . The patient is diagnosed with depression and is under the care of a psychiatrist, Mikayla Gu, whom she sees online. Her medication was recently increased, and she is scheduled for a follow-up appointment in one month. She reports taking amlodipine, sertraline, and vitamins. The psychiatrist has assured her that the medications are safe for the baby while . The patient denies having high blood sugar during her . Her last blood work was done before giving . She has not had a follow-up with her STADIUM MANAGER or the compliance field technician since delivery, stating she has not been called for an appointment. [facility] Medical History (Updated 07/11/25 @ 14:02 by ADRIENNE Strong) Bipolar disorder Insomnia Anxiety Depression Surgical History Status post cervical polyp removal Family History Mother HTN (hypertension) Father Diabetes Maternal Grandmother Uterus cancer Maternal Aunt Uterus cancer Social History Household Members: Children Housing: House Alcohol intake: never Patient Tobacco Use Status: Never used Tobacco e-Cigarette/Vaping Use: Never Used service: No Current occupational status: student Sexual orientation: Straight/Heterosexual Gender identity: Female Cognitive needs: No Hearing needs: No Vision needs: No Female Reproductive History Menstrual Age of Menarche: 10 Questionnaire PHQ-9 Over the last 2 weeks, how often have you been bothered by any of the following problems? Depression Screening Interpretation: Negative Depression Screening Done: Yes Source: Developed by Drs. Sagar Lorenzana, Roz Phelan, Justin Loja and colleagues, with an educational willow from [employer]. Thrive Questionnaire Date Thrive assessed: 12/06/24 I am a: Patient What is your living situation today?: I have a steady place to live Within the past 12 months, did the food you bought not last and you didn't have the money to get more?: I choose not to answer this question Within the past 12 months, did you worry whether your food would run out before you got money to buy more?: I choose not to answer this question Do you have trouble paying for medicines?: No Do you have trouble getting transportation to medical appointments?: No Do you have trouble paying your heating and electricity bill?: I choose not to answer this question Do you have trouble taking care of your child, family member or friend?: No Do you have trouble with day-to-day activities such as bathing, preparing meals, shopping, managing finances, etc.?: No Are you currently unemployed and looking for a job?: I choose not to answer this question Are you interested in more education?: No Please select the resources that you would like help with: None Currently or been in a relationship where the following occur: No concerns reported THRIVE Score: 0 KAREN-7 AMB Questionnaire KAREN-7 Date KAREN - 7 assessed: 12/06/24 Source: Developed by Drs. Sagar Lorenzana, Roz Phelan, Justin Loja and colleagues, with an educational willow from [employer]. Review of Systems Const Denies headache(s) Eyes Denies loss of vision ENT Denies vertigo, Denies dizziness, Denies headache(s) and Denies sore throat Card Denies chest pain, Denies leg edema and Denies lightheadedness Resp Denies cough, Denies hemoptysis and Denies wheezing GI Denies abdominal pain, Denies melena, Denies constipation, Denies diarrhea and Denies vomiting Denies urinary frequency, Denies dysuria and Denies urinary urgency Musc Denies arthralgias, Denies joint swelling, Denies numbness and Denies tingling Neuro Denies Abnormal speech present, Denies behavioral changes, Denies vertigo, Denies dizziness, Denies headache(s), Denies loss of vision, Denies memory loss, Denies numbness and Denies tingling Psych Reports anxiety, Denies behavioral changes, Reports depression, Denies memory loss and Denies panic attacks Jacob/Lymph Denies easy bleeding and Denies easy bruising Aller/Immun Denies wheezing Physical exam (Primary Care) Vital Signs: Last Vital Signs Temp 96.9 F 07/08/25 10:01 Pulse 82 07/08/25 10:01 Resp 18 07/08/25 10:01 BP 98/70 07/08/25 10:01 Pulse Ox 98 07/08/25 10:01 Oxygen Delivery Method Room Air 07/08/25 10:01 BMI result Body Mass Index 30.2 Tobacco/Smoking Status: Tobacco use Status Tobacco use date assessed 07/08/25 07/08/25 10:10 Patient Tobacco Use Status Never used Tobacco 07/08/25 10:10 e-Cigarette/Vaping Use Never Used 07/08/25 10:10 Depression Screening Interpretation: Negative Thrive Assessment: Date of Thrive Assessment Date Thrive assessed 12/06/24 07/08/25 10:10 Currently or been in a relationship where the following occur: No concerns reported Const General: healthy appearing, no acute distress, alert and awake Nutritional Appearance: well nourished Orientation/consciousness: oriented to person, oriented to place and oriented to time HENMT Ears: TM's normal bilaterally General nose exam: Normal nasal mucous membranes and turbinates present Eyes Conjunctivae: conjunctivae normal Sclerae: sclerae normal Pupils: Equal, round and reactive pupils present Neck Neck: Yes no lymphadenopathy and Yes no JVD Thyroid: Thyroid normal Carotids: no bruits Resp Effort & Inspection: normal respiratory effort and not tachypneic Auscultation: no crackles, no rales, no rhonchi and no wheezes Cardio Rate: regular rate Rhythm: regular rhythm Heart sounds: no murmurs and normal S1 and S2 GI Inspection: Yes other (large abdomen-17 weeks ) Palpation (GI): Soft to palpation and Tenderness to palpation present (GI) Auscultation: normal bowel sounds Skin General skin exam: no rashes or lesions noted and dry skin Neuro General: oriented to person, oriented to place and oriented to time Cranial nerves: Yes Equal, round and reactive pupils present Speech: No Abnormal speech present Gait exam (Neuro): Normal gait present Motor exam (neuro): no tremor noted Extrem Right upper extremity: full ROM Left upper extremity: full ROM Right lower extremity: full ROM; no edema Left lower extremity: full ROM; no edema Psych Mental Status: mental status grossly normal Speech and movement: Normal speech and movement present Affect: normal affect Attitude: cooperative Thought process: Normal thought process present Coding Level of Care Code Est Pt Level 3 (84341) Diagnoses Depression, unspecified depression type F32.A Depression Type: unspecified Bipolar affective disorder, remission status unspecified F31.9 Active/Remission status: remission status unspecified Time Spent (min) 37 Assessment & Plan Assessment & Plan (1) Depression: Code(s): F32.A - Depression, unspecified Category: Medical Qualifiers: Depression Type: unspecified Qualified Code(s): F32.A - Depression, unspecified Plan: The patient is being managed for depression by her psychiatrist, Mikayla Gu, with sertraline. Her medication was recently increased, and she is stable. The patient will continue her current treatment plan and follow up with her psychiatrist in one month. Patient reports that she has not follow up with any provider since leaving the hospital with her baby. Encouraged the patient to call to find out when she should bring her the baby to be evaluated. (2) Bipolar disorder: Code(s): F31.9 - Bipolar disorder, unspecified Category: Medical Qualifiers: Active/Remission status: remission status unspecified Qualified Code(s): F31.9 - Bipolar disorder, unspecified Plan: Patient is under the care of on online psychiatrist. She is taking promethazine 25 BID, lamotrigine 100 mg daily. DENIES SI/HI. Orders: Orders UA CC w/rflx Micro + Cult 07/08/25 F31.9 - Bipolar disorder, unspecified, F32.A - Depression, unspecified, F41.9 - Anxiety disorder, unspecified, R73.01 - Impaired fasting glucose, Z00.00 - Encounter for general adult medical examination without abnormal findings TSH reflex Free T4 07/08/25 F31.9 - Bipolar disorder, unspecified, F32.A - Depression, unspecified, F41.9 - Anxiety disorder, unspecified, R73.01 - Impaired fasting glucose, Z00.00 - Encounter for general adult medical examination without abnormal findings Lipid Panel 07/08/25 F31.9 - Bipolar disorder, unspecified, F32.A - Depression, unspecified, F41.9 - Anxiety disorder, unspecified, R73.01 - Impaired fasting glucose, Z00.00 - Encounter for general adult medical examination without abnormal findings Hemoglobin A1c 07/08/25 F31.9 - Bipolar disorder, unspecified, F32.A - De pression, unspecified, F41.9 - Anxiety disorder, unspecified, R73.01 - Impaired fasting glucose, Z00.00 - Encounter for general adult medical examination without abnormal findings Complete Blood Count Auto Diff 07/08/25 F31.9 - Bipolar disorder, unspecified, F32.A - Depression, unspecified, F41.9 - Anxiety disorder, unspecified, R73.01 - Impaired fasting glucose, Z00.00 - Encounter for general adult medical examination without abnormal findings Comprehensive [place]. Panel Fast 07/08/25 F31.9 - Bipolar disorder, unspecified, F32.A - Depression, unspecified, F41.9 - Anxiety disorder, unspecified, R73.01 - Impaired fasting glucose, Z00.00 - Encounter for general adult medical examination without abnormal findings Vitamin D 25-OH Total 07/08/25 F31.9 - Bipolar disorder, unspecified, F32.A - Depression, unspecified, F41.9 - Anxiety disorder, unspecified, R73.01 - Impaired fasting glucose, Z00.00 - Encounter for general adult medical examination without abnormal findings
[2025-07-08 10:01] VITALS: BP 98/70; PULSE 82; RESP 18; TEMP 36.1; O2SAT 98; BMI 30.2
--- OUTSIDE RECORDS SUMMARY | 2025-07-08 11:50 | XMS_ITS | Clinical Summary ---
Author Organization [employer] Address [address] [place] [address] Care Team Providers Care Lead Software Qa Engineer Name Role Phone Presley Rodriguez Unavailable Provider, Not In System Primary Care Provider Un available Allergies Active Allergy Reactions Criticality Noted Date Comments Acetaminophen Hives 11/02/2024 Medications lamoTRIgine (LaMICtal) 25 MG tablet Take by mouth. Active Active Problems Problem Noted Date Diagnosed Date Gingivitis 11/02/2024 Social History Tobacco Use Types Packs/Day Years [...] 1991 Lipid Panel 1991 SDOH Screening 1991 Disability Screening 1991 Alcohol/Substance Use Screening 2003 Family Planning (PISQ) 2006 HPV Vaccines (1 - 3-dose series) 2006 Hepatitis C Screening 2009 Hepatitis B Vaccines (1 of 3 - 19+ 3-dose series) 2010 Pap Smear 2012 Cervical Cancer Screening 2021 HPV/Cotest 2021 COVID-19 Vaccine (1 - 2023-2 5 season) 2025 Influenza Vaccine (#1) 2025 Tobacco Screening 11/02/2025 11/02/2024 DTaP/Tdap/Td Vaccines (2 [...] Years) and At-Risk Patients (6 to 49) Years Aged Out No longer eligi ble based on patient's age to complete this topic RSV under 20 months Aged Out No longe r eligible based on patient's age to complete this topic Rotavirus Vaccines Aged Out No longer eligible based on patient's age to complete this topic Procedures Procedure Name Priority Date/Time Associated Diagnosis Comments HIV AB-AG W/RFLX TO HIV QNT Routine 09/10/2022 8:57 AM EST from Last 3 Months or Most Recently Relevant to Health Maintenance Results * HIV Antibody-Antigen w/Reflex to HIV Quant (09/10/2022 8:57 AM EST) Result 4th Gen HIV Antibody Antigen NEGATIVE (NEG) [facility] Comment: Negative for antibodies to HIV 1 and HIV 2 and P24 antigen. Reference range: Negative Additional note: Written patient authorization is required for each separate release of this test result. This test was performed on the [employer] Stump Shooter immunoassay system. Testing performed or reported by [facility], a Service of [facility], [address] [place] [address] Russell Cummings MD, Trailer Truck Driver [facility]# [id number] 09/10/2022 8:57 AM EST 09/10/2022 9:00 AM EST us Risa Yoder [employer] LAB BLOOD ORDERABLES Final Res ult [facility] [address] [place] [address] from Last 3 Months or Most Recently Relevant to Health Maintenance Insurance [facility] MEDICAID STAND ADULT * Guarantor: Alissa Nichols Account Type Relation to Patient Date of Phone Billing Address Dental Self Care Teams Lead Software Qa Engineer Relationship Specialty Start Date End Date Provider, Not In System PCP - General Family Medicine 11/03/23 Presley Rodriguez PA [address] [place] [id number] Family Medicine 07/02/22
--- OUTSIDE RECORDS SUMMARY | 2025-07-08 11:50 | XMS_ITS | Clinical Summary ---
Author Organization [facility] [address] [facility] lding Address [address] [place] [address] Phone Care Team Providers Care Family Engagement Specialist Name Role Phone Sophia Simpson Primary Care Provider [phone] Allergies Active Allergy Reactions Criticality Noted Date Comments Acetaminophen Anaphylaxis,Hives High 10/12/2016 Medications vit,la [id number] 27 mg iron- 1 mg tabletIndication s: [...] 180 tablet 1 11/13/2024 11/14/19 26 Active insulin glargine (LANTUS SoloStar) 100 unit/mL (3 mL) injection penIndications:g estational diabetes mellitus Inject 26 Units under the skin at bedtime. 15 mL 3 12/19/2024 Active pen needle, diabetic 32 gauge x needleIndication s:gestational diabetes mellitus Inject 1 each under the skin at bedtime. 100 each 2 12/19/2024 Active Active Problems Problem Noted Date Diagnosed Date History of gestational diabetes 11/13/2024 Overview (01/16/2025): GDM with 1st 2024 GDMA2 on insulin - care transferred to [facility] History of gestational hypertension 11/13/2024 Overview (11/13/2024): CBC, AST, ALT, creatinine and P/C ratio baseline ASA 162 mg daily starting at 12 weeks Assessment & Plan (11/13/2024 4:42 PM EDT): Baseline pre-E labs today Migraine with aura and witho ut status migrainosus, not intractable 11/13/2024 Assessment & Plan (11/13/2024 4:43 PM EDT): Will treat with phenergan. Rubella non-immune status, antepartum 10/29/2024 Overview (10/29/2024): Vaccinate PP Assessment & Plan (11/13/2024 4:42 PM EDT): Vaccinate PP care, subsequent in [facility] 10/22/2024 Overview (11/12/2024): 1. [facility] site: [facility]: [address] [place] [address] ([phone]) 2. Delivery site: [facility] 3. Mobile Mommas: 4. Dating criteria: [...] with therapy and meds. Bipolar 1 disorder ([facility] V24, [facility] V28) Overview (09/25/2024): Stopped all meds with [...] BMI of 50 by 28wks transfer to [facility] DVT prophylaxis- Lovenox if CS and BMI >35 Assessment & Plan (11/13/2024 4:40 PM EDT): Start ASA PCOS (polycystic ovarian syndrome) 01/28/2017 Resolved Problems Problem Noted Date Diagnosed Date Resolved Date Gingivitis 11/02/2024 11/13/2024 Insulin controlled gestation al diabetes mellitus (GDM) in second trimester 10/29/202401/16 Overview (12/20/2024): 10/22/24 Early 1hr 175 and HgbA1c 5.4 11/09/24 3hr GTT: 104/203/199/138 1 hour test at 24-28 wks: >140 Perform 3 hour- if 1 hr >200, patient is diagnosed with GDM and does not need 3- hr GTT Forward chart to P [id number] ([facility]) Nutrition teaching: scheduled Diabetic [...] echocardiogram between 22-24 weeks (due between 01/06-01/20) Twice weekly NST at 32 weeks Serial growth ultrasounds after diagnosis: Intake Man on shoulder dystocia: 11/29/2024 12/19/24 Lantus 26 units at HS sent to pharmacy, pt to [facility] 12/20 to start Well controlled on medication: deliver by 39 - 39 6/7 weeks Poorly controlled: discuss with MFM, deliver 37 - 38 6/7w : 2 hour GTT at 4 -12 weeks PP Leave GDM on problem list as h istory of Order Referral to PCP Recommended Q 1-3 year GTT with PCP Assessment & Plan (11/13/2024 4:41 PM EDT): Has dietary appt tomorrow and upcoming teaching appt. She will bring meter to both appts. Surgical History Surgery Date Site/Laterality Comments SECTION, LOW TRANSVERSE x2 APPENDECTOMY POLYPECTOMY 09/05/2023 - 09/04/2024 Medical History Medical History Date Comments Depression Anxiety Bipolar 1 disorder (CMS/HCC V24, CMS/HCC V28) Polycystic ovary syndrome Gingivitis 11/02/2024 History of gestational diabetes 1st History of blood transfusion 2 u nits post for PPH after 1st History of induced hypertension 1st History of hemorrhage in 1st EBL 1000ml Family History Medical History Relation Name Comments [...] your loved ones. For example, early childhood teacher or elderly care for an older [...] Date Recorded What is your living situation? Unrecognized valu e 10/16/2024 Comments No Sex and Gender Information Value Date Recorded Sex Assigned at Not on file Legal Sex Female 5:45 AM EST Gender Identity Not on file Sexual Orientation Not on file Obstetrics History * This document contains information received from the source organization and may not represent a complete record from that organization. Para Term AB IAB SAB Ectopic Multiple Livin g Live Births 4 2 2 0 0 0 2 2 Date Outcome GA Total Labor Labor//3rd Weight Sex Type Anes PTL Daisha A1 A5 Name Clin 2010 Term 41w 4d 3790 g (133.7 oz) M CS-LT ranv Spinal ,Gener al Livin g 7 9 Min Keys [facility] Yanelis Chew MD Complications:Gestational di abetes, induced hypertension Delivery Location:[facility] Comments:Failed induct ion. arrest of dilation 4cm. PIH in labor and fever in labor presumed chorioamnionitis. EBL 1000ml. transfused 2 units 2014 Term 39w 5d 3544 g (125 oz) M CS-LT ranv Epidur al Livin g [address]My er Complications: Intolera nce Delivery Location:[facility] Comments:EBL 600ml. fa iled BARRY remote from delivery (4cm). Maternal fever, tachycaria -> Dx chorioamnionitis. GBS+ 2015 Last Filed Vital Signs Vital Sign Reading [...] 11/14/2024 10:45 AM EDT Plan of Treatment Health Maintenance Due Date Last Done Comments Hepatitis B Vaccines (1 of 3 - 19+ 3-dose series) 2010 HPV Vaccines (1 - 3-dose SCD M series) 2018 Cholesterol Screening (Lipid Panel) 09/24/2024 COVID-19 Vaccine (1 - 2023-2 5 season) 2025 Influenza Vaccine (#1) 2025 Social Influencers of Health Screening 10/16/2025 10/16/2024 Hypertension/CHF/CAD Annual BMP Blood Test 11/13/2025 11/13/2024 Cervical Cancer Screening: HPV 11/13/2029 11/13/2024 DTaP,Tdap,and Td Vaccines (3 - Td or Tdap) 02/22/2035 02/22/2025, 02/19/2018 RSV Immunization Adult Patients (1 - 1-dose 75+ series) 2066 HIV Screening Completed 10/22/2024 Hepatitis C Screening Completed 10/22/2024 Depression Screening Completed 01/02/2025 HIB Vaccines Aged Out No longer eligi ble based on patient's age to complete this topic Hepatitis A Vaccines Aged Out No long er eligible based on patient's age to complete this topic IPV Vaccines Aged Out No longer eligi ble based on patient's age to complete this topic MMR Vaccines Aged Out No longer eligi ble based on patient's age to complete this topic Meningococcal ACWY Vaccine Aged Out N o longer eligible based on patient's age to complete this topic Meningococcal B Vaccine Aged Out No l onger eligible based on patient's age to complete this topic Pneumococcal Vaccine: Pediatrics (0 to 5 Years) and At-Risk Patients (6 to 49 Years) Aged Out No longer eligible b ased on patient's age to complete this topic RSV Immunization Patients Under 20 months Aged Out No longer eligible b ased on patient's age to complete this topic Varicella Vaccines Aged Out No longer eligible based on patient's age to complete this topic Procedures Procedure Name Priority Date/Time Associated Diagnosis Comments CREATININE, SERUM Routine 11/13/2024 1:3 7 PM EDT Obesity in History of gestational hypertension HPV WITH REFLEX GENOTYPE Routine 11/13/2024 1:18 PM EDT Screening for cervical cancer HEPATITIS C ANTIBODY Routine 10/22/2024 12:59 PM EST care, subsequent in first trimester HIV 1, 2 ANTIBODY, P24 ANTIGEN WITH REFLEX TO DIFFERENTIATION Routine 10/22/2024 12:59 PM EST care, subsequent in first trimester from Last 3 Months or Most Recently Relevant to Health Maintenance Results * Creatinine (11/13/2024 1:37 PM EDT) Creatinine 0.68 0.50 - 1.10 mg/dL LAB CHEMISTRY METHOD 11/13/2024 5:12 PM EDT [facility] eGFR 118 >=60 mL/min/1. 73m2 LAB CHEMISTRY METHOD 11/13/2024 5:12 PM EDT [facility] Comment:Calculation based on the Chronic Kidney Disease Epidemiology Collaboration (CKD-EPI) equation refit without adjustment for race. Blood Venous blood specimen / Unknown Venipuncture / Unknown 11/13/2024 1:37 PM EDT 11/13/2024 1:37 PM EDT us Rekha Plummer MD LAB BLOOD ORDERABLES Final Result [facility]) [facility] [address] [place] [address], * HPV with reflex genotype (11/13/2024 1:18 PM EDT) HPV Negative Negative LAB MICROBIOLOGY METHOD 11/14/2024 1:55 PM EDT [facility] Brushing/Spatula Cervix uteri structure / Unknown 11/13/2024 1:18 PM EDT 11/14/2024 5:57 AM EDT us Rekha Plummer MD LAB MOLECULAR DIAGNOSTICS O RDERABLES Final Result Performing Organization Address City/[facility]/ZIP Co de Phone Number [facility] [address] [place] [address], [place] [phone] * Hepatitis C antibody (10/22/2024 12:59 PM EST) Pathologist [facility] Hepatitis C Antibody Negative Negative LAB CHEMISTRY METHOD 10/22/2024 5:34 PM EST [facility] Blood Venous blood specimen / Unknown Venipuncture / Unknown 10/22/2024 12:59 PM EST 10/22/2024 12:59 PM EST us Rekha Plummer MD LAB BLOOD ORDERABLES Final Result Performing Organization Address [facility]/ZIP Co de Phone Number [facility] [address] [place] [address], [place] [phone] * HIV 1,2 antibody, p24 antigen with reflex to differentiation (10/22/2024 12:59 PM EST) Pathologist [facility] HIV Combo AB/AG Negative Negative LAB CHEMISTRY METHOD 10/22/2024 5:34 PM EST [facility] Blood Venous blood specimen / Unknown Venipuncture / Unknown 10/22/2024 12:59 PM EST 10/22/2024 12:59 PM EST Narrative [facility] - 10/22/2024 5:34 PM EST This assay is a 4th generation assay allowing for earlier detection of HIV infection by detecting the presence of the HIV-1 p24 antigen as well as the traditional antibodies to HIV type 1 (including group O) and type 2. Use of a 4th generation assay is the current CDC recommendation for HIV screening. us Rekha Plummer MD LAB BLOOD ORDERABLES Final Result [facility] [address] [place] [address], [place] [phone] from Last 3 Months or Most Recently Relevant to Health Maintenance Insurance [facility] [employer] Care Teams Family Engagement Specialist Relationship Specialty Start Date End Date Sophia Simpson [address] [place] [id number] PCP - General 09/24/24
== END 2025-07-08 10:52 | disposition home or self-care (01) ==
LOC: HO.HMCH 09:59
DX: F32.A Depression, unspecified (principal); F31.9 Bipolar disorder, unspecified

== ENCOUNTER 2025-07-08 09:58 | Outpatient (REF) | payer OTHER, SELFPAY ==
[2025-07-08 11:26] LABS: MANUAL DIFF FLAG NO
[2025-07-08 11:58] LABS: Hematocrit 43.4 % (37.0-47.0); Hemoglobin 14.5 g/dl (12.0-16.0); Imm Gran Abs Auto 0.01 X10*3/uL (0.00-0.03); Imm Gran Pct Auto 0.2 % (0.0-0.4); Lymphocytes Absolute Auto 1.8 X10*3/uL (1.2-4.9); Mean Corpuscular HGB Conc 33.4 g/dl (31.0-35.0); Mean Corpuscular Hemoglobin 30.5 pg (27.0-33.0); Mean Corpuscular Volume 91.2 fL (80.0-98.0); NRBC Abs Auto 0.000 X10*3/uL (0.0-0.012); NRBC Pct Auto 0.0 /100WBC (0.0-0.2); Platelet Count 210 X10*3/uL (160-400); Red Blood Count 4.76 X10*6/uL (4.20-5.50); White Blood Count 5.5 X10*3/uL (4.8-10.8)
[2025-07-08 12:26] LABS: Appearance Urine Cloudy; Glucose Urine UA Negative (Negative); PH 7.0 (5.0-9.0); Specific Gravity - Urine 1.015 (1.005-1.025); UMIC TRIGGER UACC YES
[2025-07-08 12:35] LABS: UACC Culture Trigger YES
[2025-07-08 12:46] LABS: Alanine Aminotransferase 44 U/L (0-31); Albumin Level 4.8 g/dL (3.5-5.0); Alkaline Phosphatase 100 U/L (39-117); Anion Gap 11 (12-20); Aspartate Amino Transferase 25 U/L (5-31); Blood Urea Nitrogen 8 mg/dL (9-16); Calcium 9.2 mg/dL (8.4-10.2); Carbon Dioxide 29 mmol/L (22-29); Chloride 107 mmol/L (96-108); Cholesterol 167 mg/dL (<200); Estimated Glomerular Filt Rate > 60; HDL Cholesterol 34 mg/dL (>40); Potassium 3.5 mmol/L (3.3-5.1); Sodium 143 mmol/L (135-145); Total Protein 7.4 g/dL (6.5-8.0); Triglycerides 177 mg/dL (<150)
== END 2025-07-08 09:59 | disposition home or self-care (01) ==
LOC: HO.LAB 09:58
DX: Z00.00 Encounter for general adult medical examination without abnormal findings (principal); R73.01 Impaired fasting glucose; F31.9 Bipolar disorder, unspecified; F41.9 Anxiety disorder, unspecified; E55.9 Vitamin D deficiency, unspecified; O99.345 Other mental disorders complicating the puerperium; F53.0 Postpartum depression
CPT/HCPCS: 36415; 80053; 80061; 81001; 82306; 83036; 84443; 85025; 87086; 99212

== ENCOUNTER 2025-08-27 09:33 | Outpatient (AMB) | payer OTHER, SELFPAY ==
--- NOTE | 2025-08-27 09:57 | A.OFFPC_ITS ---
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 Filters Required: No Accompanied by: Self / Same As Patient Allergies acetaminophen (From Tylenol) Allergy (Severe, Verified 08/27/25 10:23) Anaphylaxis Medication List - Last Reconciled 08/27/25 by ADRIENNE Strong blood sugar diagnostic (FreeStyle Lite Strips) As directed blood-glucose meter (FreeStyle Sturdivant Lite kit) As directed cholecalciferol (vitamin D3) 125 mcg PO DAILY lamotrigine 100 mg PO DAILY lancets (TRUEplus Lancets) As directed PNV,calcium 02-cvlo-tpzxe acid 27 mg iron- 1 mg ( Vitamins Plus Low Iron) tabs PO DAILY promethazine mg PO BID sertraline 50 mg PO DAILY Tobacco use date assessed: 08/27/25 Dental Screening Dental Screen Date: 08/27/25 Did you have a dental visit in the last 12 months?: No Did you have a dental problem in the last 6 months where you did not have access to dental care?: No Was dental information given to patient?: No HPI Annual exam HPI Details Dentist: over year Eye: up to date Snellen: Right: Left: Corrected vision: no STI screening: n/a Colonoscopy:n/a Pap Smer:up to date PHQ-9: Flu:up to date COVID: no Tdap: up to date Diet:regular Exercise: not now History of Present Illness The patient is a 35 year old female presenting for a follow-up visit to review laboratory results and for general health maintenance. Her CBC previously showed slight anemia, which has since improved. Recent laboratory results revealed a hemoglobin A1c of 5.8, placing her in the prediabetic range. Her lipid panel showed elevated triglycerides at 177 mg/dL, low HDL cholesterol at 34 mg/dL, and a normal LDL cholesterol of 98 mg/dL. Other findings include slightly elevated liver enzymes (AST/ALT) and a low vitamin D level. A urinalysis was notable for cloudy urine with nitrates, but a subsequent culture showed contamination, ruling out a UTI. For health maintenance, the patient had an eye exam within the past year and does not wear glasses. She has not received any COVID-19 vaccines but likely had a tetanus shot after childbirth. She reports consuming a regular diet and does not currently exercise. Health Maintenance A urinalysis showed contamination rather than a true urinary tract infection, and she was advised to increase fluid intake. The patient will follow up in four months for re-evaluation and will have labs drawn one week prior to the appointment. Social History - Nutrition: The patient follows a regul ar diet with no special restrictions noted. - Physical Activity: The patient reports that she does not currently exercise. Results - Complete Blood Count (CBC): Previous s light anemia has improved. - Comprehensive Metabolic Panel (CMP): E lectrolytes, BUN, creatinine, GFR, and fasting glucose are within normal limits. - Hemoglobin A1c: 5.8%, which is in the prediabetic range. - Hepatic Function Panel: AST and ALT ar e slightly elevated. - Lipid Panel: Triglycerides 177 mg/dL ( high), LDL 98 mg/dL (normal), HDL 34 mg/dL (low). - Vitamin D: Low. - Urinalysis: Specimen was cloudy with n itrates present. - Urine Culture: Results indicated conta mination, not a urinary tract infection. COUNT INCLUDES THE [facility] Medical History Bipolar disorder Insomnia Anxiety Depression Surgical History Status post cervical polyp removal Family History Mother HTN (hypertension) Father Diabetes Maternal Grandmother Uterus cancer Maternal Aunt Uterus cancer Social History Household Members: Children Housing: House Alcohol intake: never Patient Tobacco Use Status: Never used Tobacco e-Cigarette/Vaping Use: Never Used service: No Current occupational status: student Sexual orientation: Straight/Heterosexual Gender identity: Female Cognitive needs: No Hearing needs: No Vision needs: No Female Reproductive History Menstrual Age of Menarche: 10 Questionnaire Thrive Questionnaire Date Thrive assessed: 08/27/25 I am a: Patient What is your living situation today?: I have a steady place to live Within the past 12 months, did the food you bought not last and you didn't have the money to get more?: I choose not to answer this question Within the past 12 months, did you worry whether your food would run out before you got money to buy more?: I choose not to answer this question Do you have trouble paying for medicines?: No Do you have trouble getting transportation to medical appointments?: No Do you have trouble paying your heating and electricity bill?: I choose not to answer this question Do you have trouble taking care of your child, family member or friend?: No Do you have trouble with day-to-day activities such as bathing, preparing meals, shopping, managing finances, etc.?: No Are you currently unemployed and looking for a job?: I choose not to answer this question Are you interested in more education?: No Currently or been in a relationship where the following occur: No concerns reported THRIVE Score: 0 KAREN-7 AMB Questionnaire KAREN-7 Date KAREN - 7 assessed: 12/06/24 Source: Developed by Drs. Sagar Lorenzana, Roz Phelan, Justin Loja and colleagues, with an educational willow from [employer]. Review of Systems Narrative Review of Systems - Constitutional: Denies any significant changes since her last visit. - Cardiovascular: Denies chest pain and heart palpitations. - Respiratory: Denies shortness of breath. - Gastrointestinal: Denies abdominal pain or any change in bowel habits. - Neurological: Denies dizziness. Const Denies headache(s) Eyes Denies loss of vision ENT Denies vertigo, Denies dizziness, Denies headache(s) and Denies sore throat Card Denies chest pain, Denies leg edema and Denies lightheadedness Resp Denies cough, Denies hemoptysis and Denies wheezing GI Denies abdominal pain, Denies melena, Denies constipation, Denies diarrhea and Denies vomiting Denies urinary frequency, Denies dysuria and Denies urinary urgency Musc Denies arthralgias, Denies joint swelling, Denies numbness and Denies tingling Neuro Denies Abnormal speech present, Denies behavioral changes, Denies vertigo, Denies dizziness, Denies headache(s), Denies loss of vision, Denies memory loss, Denies numbness and Denies tingling Psych Reports anxiety, Denies behavioral changes, Reports depression, Denies memory loss and Denies panic attacks Jacob/Lymph Denies easy bleeding and Denies easy bruising Aller/Immun Denies wheezing Physical exam (Primary Care) Vital Signs: Last Vital Signs Pulse 74 08/27/25 09:58 Resp 18 08/27/25 09:58 BP 108/80 08/27/25 09:58 Pulse Ox 98 08/27/25 09:58 Oxygen Delivery Method Room Air 08/27/25 09:58 BMI result Body Mass Index 29.6 Tobacco/Smoking Status: Tobacco use Status Tobacco use date assessed 08/27/25 08/27/25 09:59 Patient Tobacco Use Status Never used Tobacco 08/27/25 09:59 e-Cigarette/Vaping Use Never Used 08/27/25 09:59 Thrive Assessment: Date of Thrive Assessment Date Thrive assessed 08/27/25 08/27/25 09:59 Currently or been in a relationship where the following occur: No concerns reported Narrative Physical Exam - Respiratory: Lungs are clear to auscultation bilaterally. Const General: healthy appearing, no acute distress, alert and awake Nutritional Appearance: well nourished Orientation/consciousness: oriented to person, oriented to place and oriented to time HENMT Ears: TM's normal bilaterally General nose exam: Normal nasal mucous membranes and turbinates present Throat: Yes posterior oropharynx normal Eyes Conjunctivae: conjunctivae normal Sclerae: sclerae normal Pupils: Equal, round and reactive pupils present Neck Neck: Yes no lymphadenopathy and Yes no JVD Thyroid: Thyroid normal Carotids: no bruits Resp Effort & Inspection: normal respiratory effort and not tachypneic Auscultation: no crackles, no rales, no rhonchi and no wheezes Cardio Rate: regular rate Rhythm: regular rhythm Heart sounds: no murmurs and normal S1 and S2 GI Inspection: Yes other (large abdomen-17 weeks ) Palpation (GI): Soft to palpation and Tenderness to palpation present (GI) Auscultation: normal bowel sounds General: Yes no CVA tenderness Back/Spine/Pelvis Back: no CVA tenderness Skin General skin exam: no rashes or lesions noted and dry skin Neuro General: oriented to person, oriented to place and oriented to time Cranial nerves: Yes CN's II-XII intact bilaterally and Yes Equal, round and reactive pupils present Speech: No Abnormal speech present Gait exam (Neuro): Normal gait present Motor exam (neuro): 5/5 motor strength present throughout and no tremor noted Deep tendon reflexes (DTR's): Right triceps reflex intensity grade: 2+, Left triceps reflex intensity grade: 2+, Rt Biceps (C5, C6): 2+, Left biceps reflex intensity grade: 2+, Right brachioradialis reflex intensity grade: 2+, Left brachioradialis reflex intensity grade: 2+, Right patellar reflex intensity grade: 2+ and Left patellar reflex intensity grade: 2+ Extrem Right upper extremity: full ROM Left upper extremity: full ROM Right lower extremity: full ROM; no edema Left lower extremity: full ROM; no edema Psych Mental Status: mental status grossly normal Speech and movement: Normal speech and movement present Affect: normal affect Attitude: cooperative Thought process: Normal thought process present Results Reviewed Results Reviewed: Laboratory Tests 07/08/25 07/08/25 11:25 Unknown WBC 5.5 RBC 4.76 Hgb 14.5 Hct 43.4 MCV 91.2 MCH 30.5 MCHC 33.4 RDW 12.3 Plt Count 210 Sodium 143 Potassium 3.5 Chloride 107 Carbon Dioxide 29 Anion Gap 11 L BUN 8 L Creatinine 0.82 Estimated GFR > 60 Fasting Glucose 86 Estimat Average Glucose 120 Hemoglobin A1c % 5.8 Calcium 9.2 Total Bilirubin 0.5 AST 25 ALT 44 H Alkaline Phosphatase 100 Total Protein 7.4 Albumin 4.8 Triglycerides 177 H Cholesterol 167 LDL Cholesterol, Calc 98 HDL Cholesterol 34 L 25-OH Vitamin D Total 18.5 L TSH 1.45 Urine Color Dark Yellow Urine Appearance Cloudy Urine pH 7.0 Ur Specific [place] 1.015 Urine Protein Negative Urine Glucose (UA) Negative Urine Ketones Negative Urine Blood Negative Urine Nitrite Positive H Ur Leukocyte Esterase Moderate (2+) H Urine RBC 0-2 Urine WBC 21-50 H Ur Squamous Epith Cells >20 Urine Bacteria 4+ Hyaline Casts 0-2 Coding Level of Care Code Est Pt Prev Care [id number]([id number]) Diagnoses Annual physical exam Z00.00 Depression, unspecified depression type F32.A Depression Type: unspecified Bipolar affective disorder, remission status unspecified F31.9 Active/Remission status: remission status unspecified Mixed hyperlipidemia E78.2 Hyperlipidemia type: mixed hyperlipidemia Impaired fasting glucose R73.01 Vitamin D deficiency E55.9 Elevated liver enzymes R74.8 Time Spent (min) 36 Assessment & Plan Assessment & Plan (1) Annual physical exam: Code(s): Z00.00 - Encounter for general adult medical examination without abnormal findings Category: Medical Plan: Preventative guidelines and recent labs reviewed with the patient (2) Depression: Code(s): F32.A - Depression, unspecified Category: Medical Qualifiers: Depression Type: unspecified Qualified Code(s): F32.A - Depression, unspecified Plan: The patient is being managed for depression by her psychiatrist, Mikayla Gu, with sertraline. Her medication was recently increased, and she is stable. The patient will continue her current treatment plan and follow up with her psychiatrist in one month. (3) Bipolar disorder: Code(s): F31.9 - Bipolar disorder, unspecified Category: Medical Qualifiers: Active/Remission status: remission status unspecified Qualified Code(s): F31.9 - Bipolar disorder, unspecified Plan: Patient is under the care of on online psychiatrist. She is taking promethazine 25 BID, lamotrigine 100 mg daily. DENIES SI/HI. (4) HLD (hyperlipidemia): Code(s): E78.5 - Hyperlipidemia, unspecified Category: Medical Qualifiers: Hyperlipidemia type: mixed hyperlipidemia Qualified Code(s): E78.2 - Mixed hyperlipidemia Plan: The patient's lipid panel revealed elevated triglycerides at 177 mg/dL and low HDL at 34 mg/dL. She was advised that triglycerides are affected by processed foods, sweets, and carbohydrates. To improve her HDL, it was recommended she eat more fish or take an omega-3/fish oil supplement or CoQ10. Cholesterol levels will be rechecked in four months. (5) Impaired fasting glucose: Code(s): R73.01 - Impaired fasting glucose Category: Medical Plan: The patient's hemoglobin A1c of 5.8 places her in the prediabetic range. She was counseled to be careful with her intake of sugar, sweet foods, and carbohydrates such as bread and rice. Her A1c will be rechecked in four months. (6) Vitamin D deficiency: Code(s): E55.9 - Vitamin D deficiency, unspecified Category: Medical Plan: Continue cholecalciferol 125 mcg daily, refilled Rx (7) Elevated liver enzymes: Code(s): R74.8 - Abnormal levels of other serum enzymes Category: Medical Plan: The patient's ALT were found to be slightly elevated, which may be due to minor inflammation. To monitor this, her liver enzymes will be rechecked in approximately four months to ensure they do not increase. AVOID ALCOHOL, limit acetaminophen or medication containing acetaminophen, limit fatty foods. Plan Plan Patient was informed and verbally consented to the use of an ambient scribe for clinic note documentation during this visit. 1. Prediabetes The patient's hemoglobin A1c of 5.8 places her in the prediabetic range. She was counseled to be careful with her intake of sugar, sweet foods, and carbohydrates such as bread and rice. Her A1c will be rechecked in four months. 2. Mixed Dyslipidemia The patient's lipid panel revealed elevated triglycerides at 177 mg/dL and low HDL at 34 mg/dL. She was advised that triglycerides are affected by processed foods, sweets, and carbohydrates. To improve her HDL, it was recommended she eat more fish or take an omega-3/fish oil supplement or CoQ10. Cholesterol levels will be rechecked in four months. 3. Elevated Liver Enzymes The patient's AST and ALT were found to be slightly elevated, which may be due to minor inflammation. To monitor this, her liver enzymes will be rechecked in approximately four months to ensure they do not increase. 4. Vitamin D Deficiency The patient's vitamin D level is low. She was advised to continue taking a vitamin D supplement. Her vitamin D level will be rechecked in four months. Discussion Notes I reviewed the patient's recent laboratory results with her in detail. I explained that her hemoglobin A1c of 5.8 places her in the prediabetic range and counseled her on dietary modifications, specifically reducing her intake of sugars and carbohydrates. We discussed her mixed dyslipidemia, noting that dietary changes could improve her elevated triglycerides and low HDL, and I recommended increasing omega-3 intake through fish or supplements. I informed her that her vitamin D is low and advised her to continue taking a supplement. I highlighted the slight elevation in her liver enzymes and explained that while it is minor, I want to monitor it to ensure the values do not rise. I reassured her that her abnormal urinalysis was due to contamination and not a true infection, recommending increased fluid intake. I recommended she return for a follow-up visit in four months, with repeat labs to be drawn one week prior to that appointment to monitor these findings. Patient Instructions - To help manage your prediabetes, please be mindful of your intake of sugar, sweets, and carbohydrates like bread and rice. - To improve your cholesterol, try to reduce processed foods and sweets. - Consider eating more fish or taking an [place]-3/fish oil or CoQ10 supplement to help raise your 'good' cholesterol. - Continue taking a vitamin D supplement as your level is low. - Please drink more fluids. Your urine test did not show an infection. - We need to repeat your lab work in four months to check on your liver enzymes, cholesterol, and vitamin D. - Please schedule a follow-up appointment in four months. Get your labs done about one week before this appointment. Orders: Orders Hemoglobin A1c 4 Months E55.9 - Vitamin D deficiency, unspecified, E78.5 - Hyperlipidemia, unspecified, F31.9 - Bipolar disorder, unspecified, F41.9 - Anxiety disorder, unspecified, R73.01 - Impaired fasting glucose, R74.8 - Abnormal levels of other serum enzymes Comprehensive [place]. Panel Fast 4 Months E55.9 - Vitamin D deficiency, unspecified, E78.5 - Hyperlipidemia, unspecified, F31.9 - Bipolar disorder, unspecified, F41.9 - Anxiety disorder, unspecified, R73.01 - Impaired fasting glucose UA CC w/rflx Micro + Cult 4 Months E55.9 - Vitamin D deficiency, unspecified, E78.5 - Hyperlipidemia, unspecified, F31.9 - Bipolar disorder, unspecified, F41.9 - Anxiety disorder, unspecified, R73.01 - Impaired fasting glucose Vitamin D 25-OH Total 4 Months E55.9 - Vitamin D deficiency, unspecified, E78.5 - Hyperlipidemia, unspecified, F31.9 - Bipolar disorder, unspecified, F41.9 - Anxiety disorder, unspecified, R73.01 - Impaired fasting glucose Lipid Panel 4 Months E55.9 - Vitamin D deficiency, unspecified, E78.5 - Hyperlipidemia, unspecified, F31.9 - Bipolar disorder, unspecified, F41.9 - Anxiety disorder, unspecified, R73.01 - Impaired fasting glucose TSH reflex Free T4 4 Months E55.9 - Vitamin D deficiency, unspecified, E78.5 - Hyperlipidemia, unspecified, F31.9 - Bipolar disorder, unspecified, F41.9 - Anxiety disorder, unspecified, R73.01 - Impaired fasting glucose Medications: Changed From cholecalciferol (vitamin D3) 125 mcg PO DAILY To cholecalciferol (vitamin D3) 125 mcg PO DAILY 90 tabs 3RF 90 days
[2025-08-27 09:58] VITALS: BP 108/80; PULSE 74; RESP 18; O2SAT 98; BMI 29.6
--- OUTSIDE RECORDS SUMMARY | 2025-08-27 10:21 | XMS_ITS | Clinical Summary ---
Author Organization [employer] Address [address] [facility] [address] [place] [address] Care Team Providers Care Civil Litigation Attorney Name Role Phone Presley Rodriguez Unavailable Provider, [...] 2021 HPV/Cotest 2021 COVID-19 Vaccine (1 - 2024-2 6 season) 2025 Influenza Vaccine (#1) 2025 Tobacco [...] 4th Gen HIV Antibody Antigen NEGATIVE (NEG) [facility] Comment: Negative for antibodies to HIV 1 and HIV 2 and P24 antigen. Reference range: Negative Additional note: Written patient authorization is required for each separate release of this test result. This test was performed on the [employer] immunoassay system. Testing performed or reported by [facility], a Service of [facility], [address] [place] [address] Russell Cummings MD, Refresh Technician [facility]# [id number] 09/10/2022 8:57 AM EST 09/10/2022 9:00 AM EST us Risa Yoder CHEMICAL TEST ENGINEER LAB BLOOD ORDERABLES Final Res ult [facility] [address] [place] [address] from Last 3 Months or Most Recently Relevant to Health Maintenance Insurance [facility] MEDICAID STAND ADULT * Guarantor: Alissa Nichols Account Type Relation to Patient Date of Phone Billing Address Dental Self Care Teams Civil Litigation Attorney Relationship Specialty Start Date End Date Provider, Not In System PCP - General Family Medicine 11/03/23 Presley Rodriguez PA [address] [place] [id number] Family Medicine 07/02/22
--- OUTSIDE RECORDS SUMMARY | 2025-08-27 10:21 | XMS_ITS | Clinical Summary ---
Author Organization [facility] [address] [address] Address [address] [place] [address] Phone Care Team Providers Care Feltmaker And Weigher Name Role Phone Sophia Simpson Primary Care Provider [phone] Allergies Active Allergy Reactions Criticality Noted Date Comments Acetaminophen Anaphylaxis,Hives High 10/12/2016 Medications vit,la [id number] 27 mg iron- 1 mg tabletIndication s: [...] GDMA2 on insulin - care transferred to [facility] History of gestational hypertension 11/13/2024 Overview (11/13/2024): [...] PM EDT): Vaccinate PP care, subsequent in [facility] 10/22/2024 Overview (11/12/2024): 1. [facility] site: [facility]: [address] [place] [address] ([phone]) 2. Delivery site: [facility] 3. Mobile Mommas: 4. Dating criteria: LMP [...] BMI of 50 by 28wks transfer to [facility] DVT prophylaxis- Lovenox [...] 3- hr GTT Forward chart to P [id number] ([facility]) Nutrition teaching: scheduled Diabetic teaching and [...] 32 weeks Serial growth ultrasounds after diagnosis: Drum Straightener on shoulder dystocia: 11/29/2024 12/19/24 Lantus 26 units at HS sent to pharmacy, pt to black pickler 12/20 to start Well controlled on medication: [...] for your loved ones. For example, children's aide or elderly care for an older adult? [...] Livin g 7 9 Min [place] [facility] Yanelis Chew MD Complications:Gestational di abetes, induced hypertension Delivery Location:[facility] Comments:Failed induct ion. arrest of dilation 4cm. PIH in labor and fever in labor presumed chorioamnionitis. EBL 1000ml. transfused 2 units 2014 Term 39w 5d 3544 g (125 oz) M CS-LT ranv Epidur al Livin g [address]My er Complications: Intolera nce Delivery Location:[facility] Comments:EBL 600ml. fa iled BARRY remote from [...] Cholesterol Screening (Lipid Panel) 09/24/2024 COVID-19 Vaccine (2024-2 6 season) 2025 Influenza Vaccine (#1) 2025 Social [...] Results * Creatinine (11/13/2024 1:37 PM EDT) Pathologist [facility] Creatinine 0.68 0.50 - 1.10 mg/dL LAB CHEMISTRY METHOD 11/13/2024 5:12 PM EDT [facility] eGFR 118 >=60 mL/min/1. 73m2 LAB CHEMISTRY METHOD 11/13/2024 5:12 PM EDT [facility] Comment:Calculation based on the Chronic Kidney Disease Epidemiology Collaboration (CKD-EPI) equation refit without adjustment for race. Blood Venous blood specimen / Unknown Venipuncture / Unknown 11/13/2024 1:37 PM EDT 11/13/2024 1:37 PM EDT us Rekha Plummer MD LAB BLOOD ORDERABLES Final Result [facility] [address] [place] [address], * HPV with reflex genotype (11/13/2024 1:18 PM EDT) HPV Negative Negative LAB MICROBIOLOGY METHOD 11/14/2024 1:55 PM EDT [facility] Brushing/Spatula Cervix uteri structure / Unknown 11/13/2024 1:18 PM EDT 11/14/2024 5:57 AM EDT us Rekha Plummer MD LAB MOLECULAR DIAGNOSTICS O RDERABLES Final Result Performing Organization Address City/[facility]/ZIP Co de Phone Number [facility] [address] [place] [address], * Hepatitis C antibody (10/22/2024 12:59 PM EST) Hepatitis C Antibody Negative Negative LAB CHEMISTRY METHOD 10/22/2024 5:34 PM EST [facility] Blood Venous blood specimen / Unknown Venipuncture / Unknown 10/22/2024 12:59 PM EST 10/22/2024 12:59 PM EST us Rekha Plummer MD LAB BLOOD ORDERABLES Final Result Performing Organization Address [facility]/ZIP Co de Phone Number [facility] [address] [place] [address], * HIV 1,2 antibody, p24 antigen with reflex to differentiation (10/22/2024 12:59 PM EST) HIV Combo AB/AG Negative Negative LAB CHEMISTRY METHOD 10/22/2024 5:34 PM EST [facility] Blood Venous blood specimen / Unknown Venipuncture / Unknown 10/22/2024 12:59 PM EST 10/22/2024 12:59 PM EST Narrative [facility] - 10/22/2024 5:34 PM EST [...] MD LAB BLOOD ORDERABLES Final Result [facility] [address] [place] [address], from Last 3 Months or Most Recently Relevant to Health Maintenance Insurance [facility] [employer] Care Teams Feltmaker And Weigher Relationship Specialty Start Date End Date Sophia Simpson [address] [place] [id number] PCP - General 09/24/24
== END 2025-08-27 10:41 | disposition home or self-care (01) ==
LOC: HO.HMCH 09:34
DX: Z00.00 Encounter for general adult medical examination without abnormal findings (principal); F32.A Depression, unspecified; F31.9 Bipolar disorder, unspecified; E78.2 Mixed hyperlipidemia; R73.01 Impaired fasting glucose; E55.9 Vitamin D deficiency, unspecified; R74.8 Abnormal levels of other serum enzymes

== ENCOUNTER → 2025-08-27 09:33 | Outpatient (BNVA) | payer OTHER, SELFPAY | DX: Z00.00 Encounter for general adult medical examination without abnormal findings (principal); F32.A Depression, unspecified; F31.9 Bipolar disorder, unspecified; E78.2 Mixed hyperlipidemia; R73.01 Impaired fasting glucose; E55.9 Vitamin D deficiency, unspecified; R74.8 Abnormal levels of other serum enzymes | CPT/HCPCS: 99395 ==